=== PATIENT | male | born 1955 | race Caucasian/White ===

== ENCOUNTER → 2016-11-09 | Outpatient (REF) | payer OTHER ==
[~2016-11-09] MED LIST: ALBU83IN INH; FLUT22IN INH; LEVA750T PO; LORA2CON5 PO
[2016-11-09 15:57] LABS: CALCIUM LEVEL 8.5 MG/DL (8.8-10.2); CREATININE FOR GFR 1.45 MG/DL (0.70-1.30); FREE T4 1.14 NG/DL (0.76-1.46); GLOMERULAR FILTRATION RATE 52.7 (>49); POTASSIUM SERUM 4.1 MEQ/L (3.5-5.1)
== END ==
LOC: M SFHCPLAZ 12:45
PROVIDERS: ATTEND Family Medicine
DX: F41.8 Other specified anxiety disorders (principal)

== ENCOUNTER 2016-12-04 19:04 | Inpatient (IN) | payer OTHER ==
[~2016-12-04] VITALS: Ht 177.8 cm; Wt 113.4 kg
[2016-12-04] MEDS ORDERED: HYDR12.55 PO (19:24)
[2016-12-04] MEDS ORDERED: ACETAMINOPHEN 650 MG SUPP PR ONE (19:30)
[2016-12-04] MEDS ORDERED: NS 1,000 ML IV ONE (19:30)
[2016-12-04 19:56] LABS: BASO # 0.1 K/mm3 (0.0-0.2); BASO % 0.6 % (0.0-1.0); EOS % 0.3 % (0.0-3.0); LARGE UNSTAINED CELL # 0.4 K/mm3 (0.0-0.4); LARGE UNSTAINED CELL % 1.9 % (0.0-4.0); LYMPH # 1.9 K/mm3 (1.5-4.5); LYMPH % 9.9 % (24.0-44.0); MEAN CORPUSCULAR HEMOGLOBIN 30.8 pg (27.0-33.0); MEAN CORPUSCULAR HGB CONC 32.6 g/dl (32.0-36.5); MEAN CORPUSCULAR VOLUME 94.5 fl (80.0-96.0); MONO # 1.1 K/mm3 (0.0-0.8); NEUTROPHILS # 15.4 K/mm3 (1.8-7.7); NEUTROPHILS % 81.3 % (36.0-66.0); PLATELET COUNT, AUTOMATED 153 k/mm3 (150-450); RED CELL DISTRIBUTION WIDTH 13.6 % (11.5-14.5)
[2016-12-04 20:03] LABS: ABG BASE EXCESS -6.2 (-2.0-2.0); ABG HCO3 14.9 MEQ/L (22.0-26.0); ABG PARTIAL PRESSURE CO2 22.5 mmHg (35.0-45.0); ABG PARTIAL PRESSURE O2 67.1 mmHg (75.0-100.0); ABG STANDARD HCO3 19.5 MEQ/L (22.0-26.0); ABG TOTAL CO2 15.6 MEQ/L (23.0-31.0); ABG pH (ARTERIAL) 7.438 UNITS (7.350-7.450)
[2016-12-04 20:14] LABS: METHADONE URINE NEGATIVE (NEGATIVE)
[2016-12-04 20:17] LABS: ALBUMIN 3.8 GM/DL (3.2-5.2); ALBUMIN/GLOBULIN RATIO 0.83 (1.00-1.93); ALKALINE PHOSPHATASE 113 U/L (45-117); ALT/SGPT 37 U/L (12-78); ANION GAP 19 MEQ/L (8-16); AST/SGOT 65 U/L (15-37); BILIRUBIN,DIRECT 2.6 MG/DL (0.0-0.2); BILIRUBIN,TOTAL 4.4 MG/DL (0.2-1.0); BLOOD UREA NITROGEN 82 MG/DL (7-18); CALCIUM LEVEL 8.8 MG/DL (8.8-10.2); CARBON DIOXIDE LEVEL 21 MEQ/L (21-32); CHLORIDE LEVEL 109 MEQ/L (98-107); CREATININE FOR GFR 4.99 MG/DL (0.70-1.30); GLOMERULAR FILTRATION RATE 12.7 (>49); GLUCOSE, FASTING 135 MG/DL (80-110); POTASSIUM SERUM 3.8 MEQ/L (3.5-5.1); SODIUM LEVEL 149 MEQ/L (136-145); TOTAL PROTEIN 8.4 GM/DL (6.4-8.2)
[2016-12-04] MEDS ORDERED: CEFEPIME HCL 2 GM in D5W MINI-BAG PLUS 50 ML IV ONE (20:30)
[2016-12-04] MEDS ORDERED: dexameTHASONE 20 MG/5 ML VIAL (J1100) IV ONE (20:30)
[2016-12-04] MEDS ORDERED: NS IV ONE (20:30)
[2016-12-04] MEDS ORDERED: DILUENT IV ONE (20:30)
--- NOTE | 2016-12-04 20:40 | REPUSA ---
CLINICAL HISTORY: Altered mental status TECHNIQUE: Head CT without contrast COMPARISON: No study for comparison is available at the time of interpretation. Brain: There is severe encephalomalacia of the right temporal lobe extending into the medial frontal lobe consistent with old infarction of the right MCA territory. No intracranial hemorrhage, hydroceph alus, acute parenchymal edema or evident mass. Calvarium: Unremarkable. Sinuses (partially visualized): chronic paranasal sinusitis with opacification and chronic sclerosis changes. Intracranial vessels: Atherosclerotic calcification of the carotid siphons. IMPRESSION: 1. 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 No evidence of acute hemorrhage. 2. Chronic paranasal sinusitis.
--- NOTE | 2016-12-04 20:42 | ECGEPIP ---
Stationary ECG Study [facility] - ED Test Date: 2016-12-04 Pat Name: MEGHAN DOSS Department: Room: - Gender: M Treasury Accountant: BazziB: [id number] Requested By: Torsten Cortez Order Number: [id number] Reading MD: Yaritza Denney Measurements Intervals [place] Rate: 116 P: 18 VA: 133 QRS: -12 QRSD: 86 T: 130 QT: 341 QTc: 474 Interpretive Statements SINUS TACHYCARDIA MODERATE VOLTAGE CRITERIA FOR LVH, CONSIDER NORMAL VARIANT ST DEVIATION AND MODERATE T-WAVE ABNORMALITY, CONSIDER ISCHEMIA, MORE PRONOUNCED 01/30/15 ?INFERIOR INFARCT ?AGE Electronically Signed On 12-04-2016 20:41:52 EDT by Yaritza Denney
[2016-12-04 20:55] LABS: INR 1.3
[2016-12-04 20:56] LABS: AMYLASE 64 U/L (25-115)
[2016-12-04] MEDS ORDERED: LORA1TAB12 PO (21:56)
[2016-12-04] MEDS ORDERED: VITA50003 PO (21:56)
[2016-12-04] MEDS ORDERED: PRIM50TA6 PO (21:56)
[2016-12-04] MEDS ORDERED: DULO1CAP PO (21:57)
[2016-12-04] MEDS ORDERED: ARNU1INH INH (21:57)
[2016-12-04] MEDS ORDERED: ASPI81TA7 PO (21:57)
[2016-12-04] MEDS ORDERED: ATOR1TAB19 PO (21:57)
[2016-12-05] VITALS (15 sets, daily range): BP systolic 90–144; BP diastolic 58–88
[2016-12-05] MEDS ORDERED: VANCOMYCIN HCL 1,000 MG, VIAL MATE ADAPTER 1 EACH in D5W 250 ML IV ONE ×3
--- NOTE | 2016-12-05 00:09 | PHACANCOPD ---
PHARMACY VANCOMYCIN DOSING Pt Demographics Demographics Patient Age:61 , Weight: , Gender: male Adjusted Body Weight Date: 12/05/16, Adjusted Body Weight: [84.6] Kg Events Past 24 Hours Events Past 24 Hours: NO: Change in CrCl, Dialysis, Diuretic Therapy, Elevation in WBC, Fever, Other, Pending Diagnostics, Pending Procedures Vancomycin Vancomycin Target Ranges: 15-20 mcg/ml Vancomycin Load Y/N: Yes Load Dose Date Time Vancomycin Load Dose: 1500MG Date: 12-05 Time: 0100 Vancomycin Dose Date: 12/05/16. Current Vancomycin Dose: Intermittent Dosing?: Yes Labs Labs Item Value Date Time White Blood Count 19.0 K/mm3 H 12/04/161928 Creatinine 4.99 MG/DL H 12/04/161928 Blood Urea Nitrogen 82 MG/DL H 12/04/161928 Micro Microbiology 12/04/16 Blood Culture, Received Pending 12/04/16 Blood Culture, Received Pending 12/04/16 Influenza Virus Type A Antigen - Final, Complete 12/04/16 Influenza Virus Type B Antigen - Final, Complete 12/04/16 Urine Culture, Received Pending Creatinine Clearance Date:12/05/16. Creatinine Clearance: [16]. Pending Labs Random level - @1200 Assessment and Plan Maintaining Current Dose?: Yes Reason for dose change: No Dose Change Pharmacist Note Pharmacist Note Date: 12/05/16. Pharmacist note:loaded patient with 1500mg. Further dosing to be done intermittent by levels. First level scheduled for 12-05 @1200. Will continue to monitor and make adjustments as needed. RONNIE KELLER [facility] Dec 05, 2016 00:09
--- NOTE | 2016-12-05 00:24 | HPEPDOC ---
General Date of Admission Dec 04, 2016 at 21:32 Chief Complaint The patient is a 61-year-old male Presented to the ER brought in by EMS because he was found down. History of Present Illness Patient is a 61 year old male with a PMHx of Anxiety, Asthma, HTN, and FREYA who presented to the ER via EMS because he was found down. Patient was last known to be in his normal state around 3 days ago, he was found by his neighbor this afternoon after he had called him about a welfare check. Patient was found sitting up, able to answer commands and unable to move his left side. He had an uneven smile and dried vomit around his mouth and clothes. Patient is unable to provide any details to the event in question. He is able to answer simple questions. Information has been collected from the emergency room physician and medical record. Home Medications Scheduled (Arnuity Ellipta) 100 Mcg/Act Inh 100 MCG INH DAILY (Reported) Aspirin (Aspirin) 81 Mg Tab 81 MG PO DAILY (Reported) Atorvastatin Calcium (Atorvastatin Calcium) 10 Mg Tab 10 MG PO DAILY (Reported ) Duloxetine Hcl (Duloxetine HCl) 20 Mg Cap 20 MG PO BID (Reported) Ergocalciferol (Vitamin D) 50,000 Unit Cap 50,000 UNIT PO ASDIRECTED (Reported ) 1xW Fluticasone Propionate (Flovent Hfa 220 MCG) 120 Puff/12 Gm Aero 2 PUFF INH DAILY (Reported) Hydrochlorothiazide (Hydrochlorothiazide) 12.5 Mg Tab 12.5 MG PO DAILY ( Reported) Lorazepam (Lorazepam) 1 Mg Tab 1 MG PO QID (Reported) Primidone (Primidone) 50 Mg Tab 50 MG PO BID (Reported) Scheduled PRN Albuterol Sulfate (Albuterol Sulfate) 2.5 Mg/3 Ml Nebu 2.5 MG INH Q4HP PRN PRN WHEEZING (Reported) Allergies Coded Allergies: No Known Allergies (Verified , 03/24/03) Past Medical History Medical History Anxiety, Asthma, HTN, and FREYA Surgical History Umbilical hernia repair Growth on back that was removed Family History - Mother is alive with dementia at [facility] - Patient has a brother in [facility] unable to contact them Social History - Denies the use of alcohol, tobacco or illicit drugs base on prior records - Lives alone Review of Symptoms Other systems Unable to obtain Vital Signs - Vitals: BP 137/80, HR 90, RR 96, Sat 96%RA, Temp 97.5F - General: Lying in bed, Able to speak slurred speech - HEENT: NC, AT, Pupils dilated, reactive to light - CVS: Tachycardic, regular rhythm, +S1S2, - Lungs: Poor inspiratory effort, no appreciable crackles / rhonchi - Abdomen: Soft, Non-distended, Non-tender, + Bowel sounds x 4 - Extremities: + PPx4, No lower extremity edema, No calf tenderness - Neuro: 0/5 strength at left upper and lower extremity, 3-4/5 strength at right extremities, left facial droop - Skin: No visible rashes Laboratory Data Labs 24H Laboratory Tests 2 12/04/16 19:08: Bedside Glucose (Misc Panel) 135H 12/04/16 19:29: Acetaminophen Level < 2.0L, Activated Partial Thromboplast Time 30.9, Aspartate Amino Transf (AST/SGOT) 65H, Alanine Aminotransferase (ALT/SGPT) 37, Alkaline Phosphatase 113, Total Bilirubin 4.4H, Direct Bilirubin 2.6H, Albumin 3.8, Albumin/Globulin Ratio 0.83L, Amylase Level 64, Anion Gap 19H, White Blood Count 19.0H, Red Blood Count 6.49H, Hemoglobin 19.8H, Hematocrit 61.7H, Mean Corpuscular Volume 94.5, Mean Corpuscular Hemoglobin 30.8, Mean Corpuscular Hemoglobin Concent 32.6, Red Cell Distribution Width 13.6, Platelet Count 153, Neutrophils (%) (Auto) 81.3H, Lymphocytes (%) (Auto) 9.9L, Monocytes (%) (Auto) 6.0H, Eosinophils (%) (Auto) 0.3, Basophils (%) (Auto) 0.6, Neutrophils # (Auto ) 15.4H, Lymphocytes # (Auto) 1.9, Monocytes # (Auto) 1.1H, Eosinophils # (Auto ) 0.0, Basophils # (Auto) 0.1, C-Reactive Protein, Quantitative 16.90H, Calcium Level 8.8, Creatine Kinase MB 8.1H, Creatine Kinase MB Relative Index 0.27, Ethyl Alcohol Level 0.004, Glomerular Filtration Rate 12.7L, Lactic Acid (Sepsis ) 4.9*H, Large Unclassified Cells # 0.4, Large Unclassified Cells % 1.9, Prothromb Time International Ratio 1.30, Prothrombin Time 16.3H, Salicylates Level < 1.7L, Thyroid Stimulating Hormone (TSH) 1.850, Total Creatine Kinase 2906H, Total Protein 8.4H, Troponin I 0.02, Urine Amorphous Sediment SMALLH, Urine Amphetamines Screen NEGATIVE, Urine Benzodiazepines Screen POSITIVEH, Urine Opiates Screen NEGATIVE, Urine Appearance CLOUDYH, Urine Color FROILAN, Urine pH 5.0, Urine Specific [place] 1.023, Urine Protein 1+H, Urine Glucose (UA ) NEGATIVE, Urine Ketones NEGATIVE, Urine Urobilinogen 4.0H, Urine Bilirubin 1+H , Urine Leukocyte Esterase NEGATIVE, Urine Bacteria (Auto) 1+H, Urine Barbiturates Screen NEGATIVE, Urine Blood NEGATIVE, Urine Calcium Carbonate Cryst(Auto) , Urine Calcium Oxalate Cryst (Auto) , Urine Calcium Phosphate Geraldine (Auto) , Urine Cannabinoids Screen NEGATIVE, Urine Cellular Casts , Urine Cocaine Metabolite Screen NEGATIVE, Urine Cystine Crystals , Urine Granular Casts (Auto) , Urine Hyaline Casts (Auto) 0, Urine Leucine Crystals , Urine Methadone Screen NEGATIVE, Urine Mucus (Auto) SMALL, Urine Nitrite NEGATIVE, Urine Oval Fat Bodies (Auto) , Urine Phencyclidine Screen NEGATIVE, Urine RBC ( Auto) 4H, Urine Renal Epithelial Cells , Urine Sperm (Auto) , Urine Squamous Epithelial Cells 0, Urine Transitional Epithelial Cells , Urine Trichomonas ( Auto) , Urine Triple Phosphate Cryst (Auto) , Urine Tyrosine Crystals , Urine Uric Acid Crystals (Auto) , Urine WBC (Auto) 0, Urine Waxy Casts (Auto) , Urine Yeast-Like Cells (Auto) 12/04/16 19:50: Arterial Blood pH 7.438, Arterial Blood Partial Pressure CO2 22.5L, Arterial Blood Partial Pressure O2 67.1L, Arterial Blood Total CO2 15.6L, Arterial Blood HCO3 14.9L, Arterial Blood Base Excess -6.2L, Arterial Blood Oxygen Saturation 93.6L, Blood Gas Bicarbonate Standard 19.5L 12/04/16 22:25: Urine Random Chloride 10, Urine Random Creatinine 404.0, Urine Random Osmolality 502, Urine Random Sodium 19 12/04/16 23:12: Creatine Kinase MB 10.3H, Creatine Kinase MB Relative Index 0.23, Lactic Acid ( Sepsis) 2.4*H, Osmolality 345H, Total Creatine Kinase 4407H, Troponin I 0.05# CBC/BMP Laboratory Tests 12/04/16 19:29 Red Blood Count 6.49 H, Mean Corpuscular Volume 94.5, Mean Corpuscular Hemoglobin 30.8, Mean Corpuscular Hemoglobin Concent 32.6, Red Cell Distribution Width 13.6, Neutrophils (%) (Auto) 81.3 H, Lymphocytes (%) (Auto) 9.9 L, Monocytes (%) (Auto) 6.0 H, Eosinophils (%) (Auto) 0.3, Basophils (%) ( Auto) 0.6, Neutrophils # (Auto) 15.4 H, Lymphocytes # (Auto) 1.9, Monocytes # ( Auto) 1.1 H, Eosinophils # (Auto) 0.0, Basophils # (Auto) 0.1 Microbiology Microbiology 12/04/16 Blood Culture, Received Pending 12/04/16 Blood Culture, Received Pending 12/04/16 Influenza Virus Type A Antigen - Final, Complete 12/04/16 Influenza Virus Type B Antigen - Final, Complete 12/04/16 Urine Culture, Received Pending Plan / VTE VTE Prophylaxis Ordered?: Yes Plan / Urinary Catheter Reason for insertion/continuin: Critical Pt monitoring Plan Plan Encephalopathy likely 2/2 subacute CVA with midline shift likely 2/2 ischemic etiology - Last found within normal state 3 days ago - Has been found sitting and not moving in chair - CT head: reveals sub-actue infarct with evidence of midline shift ( radiologist has verbalized this to ER physician) - will get MRI / MRA head, ECHO, Duplex US - will c/w Dexamethasone 4mg q6h - Neuro check q1 hours and keep in ICU - Case discussed with Neurology patient has a poor prognosis - Discussed with girlfriend who is trying to get in touch with the patients brother; Patient does not have a or any children; His mother has dementia and lives a [facility] Sepsis likely 2/2 aspiration pneumonia - Physical dose not reveal any significant change in lung sounds - Elevation in WBC and Lactic acid - CXR does not reveal any findings - Will check blood cultures, urinalysis and urine cultures - Will received 30 ml / kg of IV fluid in ER - Will cover with Zosyn and Vancomycin - will c/w IV fluid hydration with NS Acute kidney injury on CKD3 - Cr elevation of 4.99, baseline of 1.4-1.7 - Will check urine electrolytes, urinalysis in urine osmolality - will c/w IV fluid hydration with NS Rhabdomyolysis likely 2/2 immobility - Elevation in CKMB of 2906 - will c/w IV fluid hydration with NS Hemoconcentration likely 2/2 dehydration Transaminitis likely 2/2 rhabdomyolysis - will monitor for now Anxiety Asthma HTN FREYA Gastrointestinal prophylaxis - Will start protonix DVT prophylaxis - Will start SCDs only at this time GERMAN MARTINEZ MD Dec 05, 2016 00:24
[2016-12-05] MEDS: NS 1,000 ML IV SCH ×3 (00:38→18:14)
[2016-12-05] MEDS: PANTOPRAZOLE 40MG INJ (PROTONIX) (C9113) IV SCH ×2 (00:38→20:18)
[2016-12-05] MEDS ORDERED: VANCOMYCIN HCL 500 MG in D5W MINI-BAG PLUS 100 ML IV ONE (01:00)
[2016-12-05] MEDS: dexameTHASONE 20 MG/5 ML VIAL (J1100) IV SCH ×3 (02:04→13:51)
[2016-12-05 02:34] LABS: OSMOLALITY URINE 575 MOSM/KG (500-800)
[2016-12-05] MEDS ORDERED: MANNITOL 25% 12.5 GM/50 ML VIAL (J2150) IV ONE (03:00)
[2016-12-05] MEDS ORDERED: MANNITOL 20% BAG 125 ML IV ONE (03:45)
[2016-12-05] MEDS: PIPERACILLIN/TAZOBACTAM SOD 3.375 GM in D5W MINI-BAG PLUS 50 ML IV SCH ×3 (04:44→19:09)
--- NOTE | 2016-12-05 05:10 | REPUSA ---
CLINICAL HISTORY: Evaluate for bleed. TECHNIQUE: Multiple axial CT images were obtained through the brain without IV contrast material. COMMENTS: Comparison is made to the prior exam performed on 12/04/2016. Unchanged subacute ischemia in the territory of the right middle cerebral artery. Unchanged associated edema. Unchanged mass effect on the right lateral ventricle. Unchanged midline shift to the left side. There is normal configuration of sella turcica. There are no intra or extra-axial collections. There is no evidence of hematoma formation. No hydrocephalus is present. The ventricles are symmetrical. No abnormal calcifications are present. IMPRESSION: No change is seen. Thank you for your kind referral of this patient.
[2016-12-05 06:27] LABS: BASO % 0.1 % (0.0-1.0); EOS # 0.1 K/mm3 (0.0-0.50); EOS % 0.5 % (0.0-3.0); LARGE UNSTAINED CELL # 0.2 K/mm3 (0.0-0.4); LARGE UNSTAINED CELL % 0.9 % (0.0-4.0); LYMPH # 0.9 K/mm3 (1.5-4.5); LYMPH % 5.4 % (24.0-44.0); MEAN CORPUSCULAR HEMOGLOBIN 30.3 pg (27.0-33.0); MEAN CORPUSCULAR HGB CONC 32.8 g/dl (32.0-36.5); MEAN CORPUSCULAR VOLUME 92.4 fl (80.0-96.0); MONO # 0.5 K/mm3 (0.0-0.8); MONO % 3.2 % (0.0-5.0); NEUTROPHILS # 15.2 K/mm3 (1.8-7.7); NEUTROPHILS % 89.9 % (36.0-66.0); RED CELL DISTRIBUTION WIDTH 13.5 % (11.5-14.5); WHITE BLOOD COUNT 16.9 K/mm3 (4.0-10.0)
[2016-12-05 06:41] LABS: ALBUMIN 2.6 GM/DL (3.2-5.2); ALBUMIN/GLOBULIN RATIO 0.67 (1.00-1.93); BILIRUBIN,TOTAL 3.4 MG/DL (0.2-1.0); CALCIUM LEVEL 7.8 MG/DL (8.8-10.2); CREATININE FOR GFR 3.77 MG/DL (0.70-1.30); GLOMERULAR FILTRATION RATE 17.5 (>49); POTASSIUM SERUM 4.1 MEQ/L (3.5-5.1); TOTAL PROTEIN 6.5 GM/DL (6.4-8.2)
[2016-12-05 07:17] LABS: PLATELET COUNT, AUTOMATED 78 k/mm3 (150-450)
--- NOTE | 2016-12-05 07:53 | REP ---
Clinical: Altered mental status . Comparison: 01/30/2015 . Findings: The mediastinum and cardiac silhouette are stable and within normal limits for portable technique. The lung ochoa are stable and without acute consolidation, effusion, or pneumothorax. Skeletal structures are intact. Impression: Normal portable chest x-ray Signed by Edin Floyd MD 12/05/2016 07:44 A
--- NOTE | 2016-12-05 09:00 | IPNPDOC ---
Subjective Date Seen The patient was seen on 12/05/16. Subjective Chief Complaint/HPI The patient is a 61-year-old male admitted with a reason for visit of Acute Renal Failure, Cva, Sepsis, Rhabdomyolysis. Events since last encounter Pt dysarthric. Does not recall immediate pre-hospital condition. Weak left side. Denies pain, CP, SOB. Constitutional: Denies: Chills, Fever Pulmonary: Denies: Dyspnea Cardiovascular: Denies: Chest Pain Gastrointestinal: Denies: Abdominal Pain, Nausea, Vomiting Neurological: Reports: Change in speech, Weakness Objective Physical Examination General Exam: Positive: Alert, No Acute Distress ENT Exam: Positive: Atraumatic Neck Exam: Positive: Supple, Negative: JVD Chest Exam: Positive: Clear to auscultation, Normal air movement Heart Exam: Positive: Rate Normal, Regular Rhythm Abdomen Exam: Positive: Normal bowel sounds, Soft, Negative: Tenderness Extremity Exam: Positive: Edema (L>R) Neuro Exam: Negative: Normal Speech (Dysarthric speech), Strength at 5/5 X4 ext (weak L>R) Assessment /Plan Problems (1) CVA (cerebral vascular accident) Status: Acute Problem Specific Plan: Consult Specialist, Monitor Clinically, Repeat Labs Problem Text: 12/05 - Neuro and neurosurgery were consulted at admission. Started on Decadron. Head CT (12/04): "Severe encephalomalacia of the right temporal lobe extending into the medial frontal lobe consistent with old infarction of the right MCA territory. No intracranial hemorrhage, hydrocephalus, acute parenchymal edema or evident mass. 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 No evidence of acute hemorrhage. Chronic paranasal sinusitis." Head CT (12/05): "Unchanged subacute ischemia in the territory of the right middle cerebral artery. Unchanged associated edema. Unchanged mass effect on the right lateral ventricle. Unchanged midline shift to the left side. There is normal configuration of sella turcica. There are no intra or extra-axial collections. There is no evidence of hematoma formation. No hydrocephalus is present. The ventricles are symmetrical. No abnormal calcifications are present. " (2) Sepsis Status: Acute Problem Specific Plan: Monitor Clinically, Repeat Labs Problem Text: 12/05 - WBC 16.9 (19 at admission). On Zosyn. (3) Rhabdomyolysis Status: Acute Problem Specific Plan: Monitor Clinically, Repeat Labs Problem Text: 12/05 - CK 3881 - 6029 - 0196. Getting IVF. (4) Acute renal failure Status: Acute Problem Specific Plan: Monitor Clinically, Repeat Labs Problem Text: 12/05 - Creatinine 3.77 (4.99 yesterday). Getting IVF. (5) Asthma Status: Chronic Problem Specific Plan: Monitor Clinically Problem Text: PRN nebs. (6) HTN (hypertension) Status: Chronic Problem Specific Plan: Monitor Clinically Problem Text: OutPt HCTZ held. (7) Anxiety Status: Chronic Problem Specific Plan: Monitor Clinically Problem Text: Outpt Duloxetine and lorazepam currently held. Plan/VTE VTE Prophylaxis Ordered?: Yes Plan/Urinary Catheter Reason for insertion/continuin: Critical Pt monitoring VS, I&O, 24H, Fishbone Vital Signs/I&O Vital Signs Date Time Temp Pulse Resp B/P Pulse Ox O2 Delivery O2 Flow Rate FiO2 12/05/16 08:00 99.0 83 22 113/76 92 Room Air I&O- Last 24 Hours up to 6 AM 12/05/16 06:00 Intake Total 2755 ml Output Total 730 ml Balance 2025 ml Laboratory Data 24H LABS Laboratory Tests 2 12/04/16 19:08: Bedside Glucose (Misc Panel) 135H 12/04/16 19:29: Acetaminophen Level < 2.0L, Activated Partial Thromboplast Time 30.9, Aspartate Amino Transf (AST/SGOT) 65H, Alanine Aminotransferase (ALT/SGPT) 37, Alkaline Phosphatase 113, Total Bilirubin 4.4H, Direct Bilirubin 2.6H, Albumin 3.8, Albumin/Globulin Ratio 0.83L, Amylase Level 64, Anion Gap 19H, White Blood Count 19.0H, Red Blood Count 6.49H, Hemoglobin 19.8H, Hematocrit 61.7H, Mean Corpuscular Volume 94.5, Mean Corpuscular Hemoglobin 30.8, Mean Corpuscular Hemoglobin Concent 32.6, Red Cell Distribution Width 13.6, Platelet Count 153, Neutrophils (%) (Auto) 81.3H, Lymphocytes (%) (Auto) 9.9L, Monocytes (%) (Auto) 6.0H, Eosinophils (%) (Auto) 0.3, Basophils (%) (Auto) 0.6, Neutrophils # (Auto ) 15.4H, Lymphocytes # (Auto) 1.9, Monocytes # (Auto) 1.1H, Eosinophils # (Auto ) 0.0, Basophils # (Auto) 0.1, C-Reactive Protein, Quantitative 16.90H, Calcium Level 8.8, Creatine Kinase MB 8.1H, Creatine Kinase MB Relative Index 0.27, Ethyl Alcohol Level 0.004, Glomerular Filtration Rate 12.7L, Lactic Acid (Sepsis ) 4.9*H, Large Unclassified Cells # 0.4, Large Unclassified Cells % 1.9, Prothromb Time International Ratio 1.30, Prothrombin Time 16.3H, Salicylates Level < 1.7L, Thyroid Stimulating Hormone (TSH) 1.850, Total Creatine Kinase 2906H, Total Protein 8.4H, Troponin I 0.02, Urine Amorphous Sediment SMALLH, Urine Amphetamines Screen NEGATIVE, Urine Benzodiazepines Screen POSITIVEH, Urine Opiates Screen NEGATIVE, Urine Appearance CLOUDYH, Urine Color FROILAN, Urine pH 5.0, Urine Specific [place] 1.023, Urine Protein 1+H, Urine Glucose (UA ) NEGATIVE, Urine Ketones NEGATIVE, Urine Urobilinogen 4.0H, Urine Bilirubin 1+H , Urine Leukocyte Esterase NEGATIVE, Urine Bacteria (Auto) 1+H, Urine Barbiturates Screen NEGATIVE, Urine Blood NEGATIVE, Urine Calcium Carbonate Cryst(Auto) , Urine Calcium Oxalate Cryst (Auto) , Urine Calcium Phosphate Geraldine (Auto) , Urine Cannabinoids Screen NEGATIVE, Urine Cellular Casts , Urine Cocaine Metabolite Screen NEGATIVE, Urine Cystine Crystals , Urine Granular Casts (Auto) , Urine Hyaline Casts (Auto) 0, Urine Leucine Crystals , Urine Methadone Screen NEGATIVE, Urine Mucus (Auto) SMALL, Urine Nitrite NEGATIVE, Urine Oval Fat Bodies (Auto) , Urine Phencyclidine Screen NEGATIVE, Urine RBC ( Auto) 4H, Urine Renal Epithelial Cells , Urine Sperm (Auto) , Urine Squamous Epithelial Cells 0, Urine Transitional Epithelial Cells , Urine Trichomonas ( Auto) , Urine Triple Phosphate Cryst (Auto) , Urine Tyrosine Crystals , Urine Uric Acid Crystals (Auto) , Urine WBC (Auto) 0, Urine Waxy Casts (Auto) , Urine Yeast-Like Cells (Auto) 12/04/16 19:50: Arterial Blood pH 7.438, Arterial Blood Partial Pressure CO2 22.5L, Arterial Blood Partial Pressure O2 67.1L, Arterial Blood Total CO2 15.6L, Arterial Blood HCO3 14.9L, Arterial Blood Base Excess -6.2L, Arterial Blood Oxygen Saturation 93.6L, Blood Gas Bicarbonate Standard 19.5L 12/04/16 22:25: Urine Random Chloride 10, Urine Random Creatinine 404.0, Urine Random Osmolality 502, Urine Random Sodium 19 12/04/16 23:12: Creatine Kinase MB 10.3H, Creatine Kinase MB Relative Index 0.23, Lactic Acid ( Sepsis) 2.4*H, Osmolality 345H, Total Creatine Kinase 4407H, Troponin I 0.05# 12/05/16 02:06: Urine Myoglobin POSITIVE, Urine Random Creatinine 148.0, Urine Random Osmolality 575, Urine Random Sodium 31 12/05/16 06:07: Creatine Kinase MB 8.4H, Creatine Kinase MB Relative Index 0.21, Lactic Acid ( Sepsis) 1.8, Total Creatine Kinase 3881H, Troponin I 0.14#H, Blood Urea Nitrogen 84H, Creatinine 3.77H, Sodium Level 148H, Potassium Level 4.1, Chloride Level 117H, Carbon Dioxide Level 20L, Calcium Level 7.8L, Aspartate Amino Transf (AST/SGOT) 89H, Alanine Aminotransferase (ALT/SGPT) 39, Alkaline Phosphatase 82, Total Bilirubin 3.4H, Total Protein 6.5#, Albumin 2.6#L, Albumin /Globulin Ratio 0.67L, Anion Gap 11, White Blood Count 16.9H, Red Blood Count 5.29, Hemoglobin 16.0#, Hematocrit 48.9, Mean Corpuscular Volume 92.4, Mean Corpuscular Hemoglobin 30.3, Mean Corpuscular Hemoglobin Concent 32.8, Red Cell Distribution Width 13.5, Platelet Count 78L, Neutrophils (%) (Auto) 89.9H, Lymphocytes (%) (Auto) 5.4L, Monocytes (%) (Auto) 3.2, Eosinophils (%) (Auto) 0.5, Basophils (%) (Auto) 0.1, Neutrophils # (Auto) 15.2H, Lymphocytes # (Auto) 0.9L, Monocytes # (Auto) 0.5, Eosinophils # (Auto) 0.1, Basophils # (Auto) 0.0, Glomerular Filtration Rate 17.5L, Large Unclassified Cells # 0.2, Large Unclassified Cells % 0.9, Magnesium Level 3.0H CBC/BMP Laboratory Tests 12/04/16 19:29 Red Blood Count 6.49 H, Mean Corpuscular Volume 94.5, Mean Corpuscular Hemoglobin 30.8, Mean Corpuscular Hemoglobin Concent 32.6, Red Cell Distribution Width 13.6, Neutrophils (%) (Auto) 81.3 H, Lymphocytes (%) (Auto) 9.9 L, Monocytes (%) (Auto) 6.0 H, Eosinophils (%) (Auto) 0.3, Basophils (%) ( Auto) 0.6, Neutrophils # (Auto) 15.4 H, Lymphocytes # (Auto) 1.9, Monocytes # ( Auto) 1.1 H, Eosinophils # (Auto) 0.0, Basophils # (Auto) 0.1 12/05/16 06:07 Red Blood Count 5.29, Mean Corpuscular Volume 92.4, Mean Corpuscular Hemoglobin 30.3, Mean Corpuscular Hemoglobin Concent 32.8, Red Cell Distribution Width 13.5 , Neutrophils (%) (Auto) 89.9 H, Lymphocytes (%) (Auto) 5.4 L, Monocytes (%) ( Auto) 3.2, Eosinophils (%) (Auto) 0.5, Basophils (%) (Auto) 0.1, Neutrophils # ( Auto) 15.2 H, Lymphocytes # (Auto) 0.9 L, Monocytes # (Auto) 0.5, Eosinophils # (Auto) 0.1, Basophils # (Auto) 0.0, Calcium Level 7.8 L, Aspartate Amino Transf (AST/SGOT) 89 H, Alanine Aminotransferase (ALT/SGPT) 39, Total Creatine Kinase 3881 H, Alkaline Phosphatase 82, Total Bilirubin 3.4 H, Total Protein 6.5 #, Albumin 2.6 #L Microbiology Microbiology 12/04/16 Blood Culture, Received Pending 12/04/16 Blood Culture, Received Pending 12/04/16 Influenza Virus Type A Antigen - Final, Complete 12/04/16 Influenza Virus Type B Antigen - Final, Complete 12/04/16 Urine Culture, Received Pending Oumar Nye Dec 05, 2016 09:00
[2016-12-05] MEDS ORDERED: SLF 3 ML SYR IV PRN (12:15)
[2016-12-05] MEDS ORDERED: VANCOMYCIN INTERMITTENT/PULSE DOSING BY CLINICAL PHARMACIST PER DOSING PROTOCOL XX SCH (13:30)
[2016-12-05] MEDS: SLF 3 ML SYR IV SCH ×2 (13:51→20:19)
--- NOTE | 2016-12-05 15:47 | REP ---
LEFT LOWER EXTREMITY DUPLEX DOPPLER VENOUS ULTRASOUND: Real-time compression and duplex Doppler interrogation of the left lower extremity deep venous system is performed. The left common femoral, superficial femoral and popliteal veins are not compressible and filled with intraluminal thrombus consistent with extensive deep vein thrombosis. Note is also made of thrombus in the right common femoral vein. IMPRESSION: Extensive deep vein thrombosis of left common femoral, superficial femoral and popliteal veins. Note is also made of deep vein thrombosis of the right common femoral vein. Signed by Anand Mason MD 12/05/2016 04:16 P
--- NOTE | 2016-12-05 15:55 | REP ---
CAROTID ULTRASOUND: Real-time ultrasound evaluation and duplex Doppler interrogation of the extracranial carotid vasculature is performed. There is mild plaquing and narrowing in both carotid bulbs extending into the internal and external carotid arteries. Luminal narrowing is less than 50%. There is no evidence of hemodynamically significant stenosis of either internal carotid artery. Normal flow velocities are seen. The vertebral arteries demonstrate normal direction of flow. RIGHT LEFT Peak systolic velocity ICA 21.2 cm/s 42.3 cm/s End diastolic velocity ICA 6.6 cm/s 20.4 cm/s Peak systolic velocity CCA 59.1 cm/s 80 cm/s Peak systolic velocity ECA 60.9 cm/s 47.4 cm/s ICA/CCA ratio 0.28 0.53 IMPRESSION: Bilateral luminal narrowing of the internal carotid arteries less than 50%. No evidence of hemodynamically significant stenosis. Signed by Anand Mason MD 12/05/2016 03:46 P
--- NOTE | 2016-12-05 16:22 | REP ---
MRA BRAIN WITHOUT CONTRAST: HISTORY: Infarction. 3D [id number] MR angiography was performed at the level of the [place]. There is no aneurysm or arteriovenous malformation. There is loss of the normal hyperintense signal in the right middle cerebral artery at its origin and its branches consistent with occlusion. The remaining major intracranial vessels are patent. The vertebral artery is dominant. IMPRESSION: There is occlusion of the right middle cerebral artery at its origin. Signed by Toni Jackson MD 12/05/2016 04:26 P
--- NOTE | 2016-12-05 16:35 | REP ---
MR BRAIN WITHOUT CONTRAST: HISTORY: Infarction. COMPARISON: CT 12/04/2016. A large area of increased signal intensity on diffusion and T2 weighted images is present in the right temporal and parietal lobes and posterior right frontal lobe. This is decreased in signal intensity on ADC images and is consistent with an acute infarction. A small hemorrhagic component is present. There is mass effect with partial effacement of the overlying cortical sulci and body of the right lateral and third ventricles with minimal midline shift to the left. Scattered punctate areas of increased signal intensity on T2 weighted images are present in the periventricular and subcortical white matter. This represents small vessel ischemic disease. The ventricular system and cortical sulci are dilated consistent with mild volume loss. There is no extra cerebral collection. There is loss of the signal void in the VA segment of the right middle cerebral artery consistent with slow flow or occlusion . Mucosal thickening is present in the ethmoid, maxillary and sphenoid sinuses. IMPRESSION: 1. There is an acute infarction in the distribution of the right middle cerebral artery. A small hemorrhagic component is present. There is minimal midline shift to the left. 2. Minimal small vessel ischemic disease. 3. Mild volume loss. Signed by Toni Jackson MD 12/05/2016 04:37 P
[2016-12-05] MEDS: LORazepam 1 MG TAB PO SCH ×2 (18:14→23:37)
[2016-12-05] MEDS ORDERED: ASPIRIN 300 MG SUPP PR ONE (19:00)
--- NOTE | 2016-12-05 19:04 | REP ---
Clinical: Follow up subacute infarction. Comparison: 12/05/2016, 12/04/2016. Findings: Large area of low density change involving the right frontoparietal and temporal region consistent with right middle cerebral artery infarction is essentially unchanged from prior examination. There is mild to moderate mass effect on the anterior horn of the right lateral ventricle similar to prior examination as well as minimal contralateral midline shift. No no new acute intracranial hemorrhage, extra-axial collection, or mass/mass effect is otherwise noted. Calvarium is intact. There is partial opacification to the ethmoid and sphenoid sinuses. Impression: Large subacute right middle cerebral artery infarction essentially unchanged from prior examination. No evidence for intracranial hemorrhage or extra-axial collection. Signed by Edin Floyd MD 12/05/2016 06:56 P
--- NOTE | 2016-12-05 19:40 | ECHO ---
DATE OF PROCEDURE: 12/05/2016 REFERRING PHYSICIAN: Dr. Lance INDICATION: Cerebrovascular accident. HEIGHT: 178 cm WEIGHT: 103 kg DIMENSIONS: IVS: 1.4 LV 3.9 LVPW: 1.4 LA: 3.1. Aorta: 3.8 FINDINGS: The study is of rather limited technical quality corresponding to patient's body habitus. Left ventricle is normal size and overall preserved or maybe even hyperdynamic contractility. Ejection fraction is around 65 to 75%. Mild left ventricular hypertrophy (LVH) is noted. Right ventricle was poorly seen and grossly appears normal. Left atrium is at least mildly enlarged, right atrium was poorly seen. Aortic valve is mildly sclerotic but has normal mobility. There are mild degenerative abnormalities of the mitral valve, Tricuspid valve appears normal. Pulmonic valve was not well seen. Pericardial fat pad is noted. Inferior vena cava is dilated but collapses with respiration indicative likely of elevated central venous pressure. Aortic root is borderline dilated at 3.8 cm. Aortic arch and abdominal aorta were not seen. Doppler interrogation reveals no aortic or mitral valve disease. There is trace tricuspid insufficiency, but quality of TR jet was not sufficient to adequately estimate pulmonary artery pressure. Pulmonic valve was not well seen and consequently, Doppler evaluation is inconclusive. Mitral inflow pattern and tissue Doppler imaging of mitral annulus reveal grade 1 diastolic dysfunction. E-prime velocities are 4.5 cm/sec septal and 5.9 cm/sec lateral. CONCLUSIONS: 1. Study is of difficult technical quality. 2. Normal left ventricle (LV) size with mild LVH and preserved LV systolic function. 3. No hemodynamically significant valvular disease. 4. Slightly elevated central venous pressure. 5. Unable to estimate pulmonary artery pressure. COMMENT: Subacute bacterial endocarditis (SBE) prophylaxis is not recommended. MTDD
[2016-12-05] MEDS: PRIMIDONE 50 MG TAB PO SCH (20:18)
[2016-12-05] MEDS: NYSTATIN 100,000 UNITS/GM TOPICAL PWD 15 GM TOP SCH (20:18)
[2016-12-05] MEDS ORDERED: APIXABAN 5 MG TAB (ELIQUIS) PO SCH (21:00)
--- NOTE | 2016-12-05 22:12 | CR ---
DATE OF CONSULTATION: 12/05/2016 REASON FOR CONSULTATION: Acute stroke. HISTORY OF PRESENT ILLNESS: Lee Kirkpatrick is a 61-year-old male with past medical history significant for tremor of the right upper extremity, anxiety, asthma, hypertension, obstructive sleep apnea who was found after 3 days by a friend to be poorly responsive, sitting up in his own dried vomitus with inability to move the left side of his body. When brought to [facility] the patient was brought to have a large right MCA occlusion and right MCA stroke. The patient was in acute kidney injury, had aspiration pneumonia and is currently in the ICU. Evaluation of the lower extremities with Dopplers revealed extensive left lower extremity deep venous thrombosis (DVT) with right femoral DVT as well. The patient did have initial report on MRI suggesting possible hemorrhage within the right MCA stroke. CT scan following that up did not comment about hemorrhage. The was to be started on Eliquis 10 mg twice a day for the DVTs. The patient is at very high risk for hemorrhagic transformation of such a large MCA territorial stroke with occlusion of the origin of the MCA artery. As a result, head CT is ordered for tonight and tomorrow morning to further assess for any hemorrhagic conversion. The patient will be requested to have an IVC filter placed after discussing the case with primary team, Dr. Shea Oakes. If in a few days the head CTs do not reveal any subsequent hemorrhagic transformation, we can consider initiation of anticoagulation, which would cause potential high risk for hemorrhage. The patient at this time is hemodynamically stable without any symptoms to suggest pulmonary embolism. Hypercoagulable workup and vasculitic workup is necessary to evaluate for cause of bilateral DVTs. It is possible the patient has a patent foramen ovale (PFO), which may have created a paradoxical stroke. Would recommend transesophageal echocardiogram or at least transthoracic echocardiogram with bubble study. The patient is verbal and able to communicate. He does state that he purchases prescriptions on line include lithium which is not prescribed to him, which he had taken a month ago. The patient also states he takes 2 mg of Ativan five times a day, which is more than what is actually prescribed to him. After confirming with the pharmacy the patient is supposed to be taking 1.5 mg four times a day, but purchases his medications elsewhere and self medicates at higher dosages. While in the hospital, his Ativan was restarted to prevent any potential withdrawal seizure. He takes Primidone 50 mg twice a day as well for the treatment of an underlying tremor, which is also restarted to ovoid any potential rebound seizure. The patient was given rectal aspirin 3 mg in the ICU today. He was taking 81 mg of aspirin up until 3 weeks ago and then stopped on his own. When asked how come the patient self medicates without the direction of any medical provider, he states that he is knowledgeable person and chooses to do so. The patient will need counseling to avoid the such behaviors in the future. The patient is noted to have dense left-sided hemiplegia with inability to cross his eyes past midline towards the left. His tongue is deviating towards the left. He has flattening of the nasolabial fold on the left face. He withdraws to noxious stimuli minimally in the left lower extremity and lateral in the left upper extremity. The patient reflexes are increased on the left side compared to the right. He has a coarse resting tremor and haustral and intention tremor of the right upper extremity. Speech is dysarthric though intelligible. He is able to repeat and does not demonstrate symptoms of aphasia. REVIEW OF SYSTEMS: Negative except as per HPI. ALLERGIES: None. HOME MEDICATIONS: Include: - Arnuity Ellipta 100 mcg/ACT daily - aspirin 81 mg daily up to 3 weeks ago - atorvastatin 10 mg daily - Fluoxetine 20 mg twice a day - ergocalciferol vitamin D 50,000 international units by mouth as directed once a week - hydrochlorothiazide 12.5 mg by mouth daily - lorazepam 1.5 mg by mouth four times a day - Primidone 50 mg by mouth by mouth twice a day PAST MEDICAL HISTORY: Anxiety. Asthma. Hypertension. Obstructive sleep apnea. PAST SURGICAL HISTORY: Umbilical hernia repair. FAMILY HISTORY: Noncontributory. SOCIAL HISTORY: The patient denies use of alcohol, tobacco or illicit drugs. The patient lives alone. PHYSICAL EXAMINATION: Blood pressure is 137/72, pulse rate 81, respiratory rate is 24, temperature 97.4 degrees Fahrenheit. Current height 5 foot 10 inches, current weight is 105 kg. Oxygenation 96% on nasal cannula. The patient is oriented to his name, location and time. He can follow commands. Pupils are 3.5 mm round, reactive to light. The patient can look towards the left with minimal upward and downward gaze. However, the patient cannot cross midline towards the left. Flattening of the left nasolabial fold is present. The patient can raise his eyebrows well. Sensation in V1, V2, and V3 is intact to light touch with slight decrement on the left face. Tongue is deviated towards the left. Hearing subjectively equal to finger rub bilaterally. The patient has dense hemiplegia and hemisensory loss of the left upper and lower extremity. He minimally moves his right toes but can move his right lower extremity minimally. He can move his right upper extremity well and demonstrates a coarse tremor. Sensory of the right face, arm and leg is intact. Deep tendon reflexes are slightly increased in the left side compared to the right. Babinski signs are mute bilaterally. Coordination shows a coarse tremor with [id number] in right hand. ASSESSMENT: 61-year-old male found to have a right MCA origin occlusion resulting in a large territorial MCA acute ischemic stroke with mention of mild hemorrhagic component based on MRI imaging. The patient also has bilateral left worse than right lower extremity DVTs. PLAN: 1. The initial thought was to start the patient on anticoagulation, which in the setting of a large MCA stroke poses a risk of hemorrhagic conversion which has a very poor prognosis. At the present time, the patient is hemodynamically stable and does not have a pulmonary embolism (PE). After discussing the case with Shea Oakes a decision was made to pursue IVC filter placement. Repeat head CT has been ordered for tonight and tomorrow morning. Will followup head CTs daily to assess for any hemorrhagic conversion. If in the next 3 days there is no hemorrhagic conversion, anticoagulation can be considered when weighing risks and benefits and discussing with the patient. If PE develops then anticoagulation will be necessary and the risk for hemorrhagic conversion will have to be seen at that time. 2. Continue with systolic blood pressure within the normal range. Continue ICU monitoring. 3. Please complete hypercoagulable end-diastolic workup. 4. Continue telemetry monitoring. 5. Obtain transthoracic echocardiogram with bubble study or if possible transesophageal echocardiogram with bubble study and evaluation for patent foramen ovale (PFO). 6. If an IVC filter is placed, this will least help to prevent a pulmonary embolism and give more time to assess for any hemorrhagic conversion before initiating anticoagulation.
[2016-12-06] VITALS (14 sets, daily range): BP systolic 107–153; BP diastolic 61–91
[2016-12-06] MEDS: PIPERACILLIN/TAZOBACTAM SOD 3.375 GM in D5W MINI-BAG PLUS 50 ML IV SCH ×3 (04:46→19:46)
[2016-12-06] MEDS: NS 1,000 ML IV SCH ×2 (05:00→17:32)
[2016-12-06] MEDS: LORazepam 1 MG TAB PO SCH ×4 (05:00→23:53)
[2016-12-06] MEDS: SLF 3 ML SYR IV SCH ×3 (05:01→21:32)
[2016-12-06 05:11] LABS: EOS # 0.1 K/mm3 (0.0-0.50); EOS % 0.4 % (0.0-3.0); LARGE UNSTAINED CELL # 0.2 K/mm3 (0.0-0.4); LARGE UNSTAINED CELL % 1.1 % (0.0-4.0); LYMPH # 1.8 K/mm3 (1.5-4.5); LYMPH % 8.7 % (24.0-44.0); MEAN CORPUSCULAR HEMOGLOBIN 31.3 pg (27.0-33.0); MEAN CORPUSCULAR VOLUME 94.9 fl (80.0-96.0); MONO # 0.9 K/mm3 (0.0-0.8); MONO % 4.8 % (0.0-5.0); NEUTROPHILS # 15.7 K/mm3 (1.8-7.7); NEUTROPHILS % 84.9 % (36.0-66.0); RED CELL DISTRIBUTION WIDTH 13.5 % (11.5-14.5); WHITE BLOOD COUNT 18.5 K/mm3 (4.0-10.0)
[2016-12-06 05:12] LABS: PLATELET COUNT, AUTOMATED 86 k/mm3 (150-450)
[2016-12-06 05:35] LABS: ALBUMIN 2.6 GM/DL (3.2-5.2); ALBUMIN/GLOBULIN RATIO 0.7 (1.00-1.93); CALCIUM LEVEL 7.7 MG/DL (8.8-10.2); CREATININE FOR GFR 3.12 MG/DL (0.70-1.30); GLOMERULAR FILTRATION RATE 21.8 (>49); MAGNESIUM LEVEL 3.2 MG/DL (1.8-2.4); TOTAL PROTEIN 6.3 GM/DL (6.4-8.2)
--- NOTE | 2016-12-06 09:22 | REP ---
CT HEAD WITHOUT CONTRAST: HISTORY: Infarction. COMPARISON: 12/05/2016. Decreased attenuation is present in the right temporal and parietal and posterior right frontal lobes. There is mass effect with effacement of the overlying cortical sulci and partial effacement of the body of the right lateral and third ventricles with minimal midline shift to the left. This is unchanged compared to the previous study. There is no intraparenchymal hemorrhage or mass. The ventricular system and cortical sulci are dilated consistent with mild volume loss. There is no extracerebral collection. Mucosal thickening is present in the ethmoid, maxillary and sphenoid sinuses. IMPRESSION: Acute right middle cerebral artery territory infarction with mass effect and minimal midline shift to the left, unchanged compared to the previous study. Signed by Toni Jackson MD 12/06/2016 09:35 A
[2016-12-06] MEDS: NYSTATIN 100,000 UNITS/GM TOPICAL PWD 15 GM TOP SCH ×2 (09:39→21:31)
[2016-12-06] MEDS: PRIMIDONE 50 MG TAB PO SCH ×2 (09:39→21:31)
[2016-12-06] MEDS: ASPIRIN 300 MG SUPP PR SCH (09:39)
[2016-12-06 09:56] LABS: ERYTHROCYTE SEDIMENTATION RATE 7 mm/hr (0-20)
--- NOTE | 2016-12-06 13:20 | IPNPDOC ---
Subjective Date Seen The patient was seen on 12/06/16. Subjective Chief Complaint/HPI The patient is a 61-year-old male admitted with a reason for visit of Acute Renal Failure, Cva, Sepsis, Rhabdomyolysis. Events since last encounter Patient scheduled go for IVC filter today. He also has EEG today. Patient states that he is feeling reasonably well. He is afraid that he caused a stroke through his use of benzodiazepines. He denies significant leg pain, difficulty breathing, chest pain, or chest pressure. Constitutional: Denies: Chills, Fever, Malaise ENT: Denies: Head Aches Skin: Denies: Rash Pulmonary: Denies: Cough, Dyspnea, Pleuritic Chest Pain Cardiovascular: Denies: Chest Pain, Palpitations Gastrointestinal: Denies: Abdominal Pain, Nausea, Vomiting Genitourinary: Denies: Dysuria Neurological: Reports: Change in speech, Confusion (mild), Incoordination, Numbness, Weakness, Denies: Seizures Psych: Reports: Mood Normal Other systems 10 point review systems otherwise negative Objective Physical Examination General Exam: Positive: Alert, No Acute Distress ENT Exam: Positive: Atraumatic Neck Exam: Positive: Supple, Negative: JVD Chest Exam: Positive: Clear to auscultation, Normal air movement Heart Exam: Positive: Rate Normal, Regular Rhythm Abdomen Exam: Positive: Normal bowel sounds, Soft, Negative: Tenderness Extremity Exam: Positive: Edema (L>R) Neuro Exam: Negative: Cranial Nerves 3-12 NL (tongue deviates left, right facial droop, gaze palsy, pupils dilated 4 mm), Normal Speech (Dysarthric speech ), Strength at 5/5 X4 ext (paralysis of left arm and leg; right facial droop) Assessment /Plan Problems (1) CVA (cerebral vascular accident) Status: Acute Problem Specific Plan: Consult Specialist, Monitor Clinically, Repeat Labs Problem Text: Severe right MCA stroke at its origin. Neuro and neurosurgery were consulted at admission. Awaiting day 3 status post stroke to initiate Eliquis, to await confirmation that stroke does not become hemorrhagic. EEG done 12/06/2016. Follow-up CT 12/06/2016 shows no hemorrhagic conversion as of yet. IVC filter placed 12/06/[address] Solorio. Echo shows no significant valvular disease, slightly elevated central venous pressure, normal LV size and systolic function. - Follow-up EEG results - ALON with bubble; per neuro - hypercoag workup pending - repeat CT w/o to eval for hemorrhagic conversion 12/07/16, 12/08/2016, 2016 per neuro - these are been ordered -Pureed Diet with pudding thick (2) Sepsis Status: Acute Problem Specific Plan: Monitor Clinically, Repeat Labs Problem Text: 12/05 - WBC 16.9 (19 at admission). On Zosyn. (3) Rhabdomyolysis Status: Acute Problem Specific Plan: Monitor Clinically, Repeat Labs Problem Text: 12/05 - CK 3881 - 4407 - 2906. Getting IVF. (4) Acute renal failure Status: Acute Problem Specific Plan: Monitor Clinically, Repeat Labs Problem Text: 12/05 - Creatinine 3.77 (4.99 yesterday). Getting IVF. (5) Asthma Status: Chronic Problem Specific Plan: Monitor Clinically Problem Text: PRN nebs. (6) HTN (hypertension) Status: Chronic Problem Specific Plan: Monitor Clinically Problem Text: OutPt HCTZ held. (7) Anxiety Status: Chronic Problem Specific Plan: Monitor Clinically Problem Text: Outpt Duloxetine and lorazepam currently held. Plan/VTE VTE Prophylaxis Ordered?: Yes Plan/Urinary Catheter Reason for insertion/continuin: Critical Pt monitoring VS, I&O, 24H, [facility] Vital Signs/I&O Vital Signs Date Time Temp Pulse Resp B/P Pulse Ox O2 Delivery O2 Flow Rate FiO2 12/06/16 08:00 98.4 70 20 126/67 93 Nasal Cannula 2.0 I&O- Last 24 Hours up to 6 AM 12/06/16 06:00 Intake Total 2350 ml Output Total 1555 ml Balance 795 ml Laboratory Data 24H LABS Laboratory Tests 2 12/05/16 16:20: Creatine Kinase MB 4.9H, Creatine Kinase MB Relative Index 0.15, Total Creatine Kinase 3086H, Troponin I 0.16H 12/06/16 04:52: Total Creatine Kinase 1714H, Blood Urea Nitrogen 85H, Creatinine 3.12H, Sodium Level 155H, Potassium Level 4.0, Chloride Level 124H, Carbon Dioxide Level 21, Calcium Level 7.7L, Aspartate Amino Transf (AST/SGOT) 70H, Alanine Aminotransferase (ALT/SGPT) 43, Alkaline Phosphatase 73, Total Bilirubin 1.0#, Total Protein 6.3L, Albumin 2.6L, Albumin/Globulin Ratio 0.70L, Anion Gap 10, White Blood Count 18.5H, Red Blood Count 4.83, Hemoglobin 15.1, Hematocrit 45.9 , Mean Corpuscular Volume 94.9, Mean Corpuscular Hemoglobin 31.3, Mean Corpuscular Hemoglobin Concent 33.0, Red Cell Distribution Width 13.5, Platelet Count 86L, Neutrophils (%) (Auto) 84.9H, Lymphocytes (%) (Auto) 8.7L, Monocytes (%) (Auto) 4.8, Eosinophils (%) (Auto) 0.4, Basophils (%) (Auto) 0.0, Neutrophils # (Auto) 15.7H, Lymphocytes # (Auto) 1.8, Monocytes # (Auto) 0.9H, Eosinophils # (Auto) 0.1, Basophils # (Auto) 0.0, C-Reactive Protein, Quantitative 14.50H, Erythrocyte Sedimentation Rate 7, Glomerular Filtration Rate 21.8L, Large Unclassified Cells # 0.2, Large Unclassified Cells % 1.1, Magnesium Level 3.2H 12/06/16 09:09: 12/06/16 09:10: 12/06/16 12:04: CBC/BMP Laboratory Tests 12/06/16 04:52 Calcium Level 7.7 L, Aspartate Amino Transf (AST/SGOT) 70 H, Alanine Aminotransferase (ALT/SGPT) 43, Total Creatine Kinase 1714 H, Alkaline Phosphatase 73, Total Bilirubin 1.0 #, Total Protein 6.3 L, Albumin 2.6 L, Red Blood Count 4.83, Mean Corpuscular Volume 94.9, Mean Corpuscular Hemoglobin 31.3 , Mean Corpuscular Hemoglobin Concent 33.0, Red Cell Distribution Width 13.5, Neutrophils (%) (Auto) 84.9 H, Lymphocytes (%) (Auto) 8.7 L, Monocytes (%) (Auto ) 4.8, Eosinophils (%) (Auto) 0.4, Basophils (%) (Auto) 0.0, Neutrophils # (Auto ) 15.7 H, Lymphocytes # (Auto) 1.8, Monocytes # (Auto) 0.9 H, Eosinophils # ( Auto) 0.1, Basophils # (Auto) 0.0 Microbiology Microbiology 12/04/16 Blood Culture - Preliminary, Resulted No growth after 24 hours . All specim... 12/04/16 Blood Culture - Preliminary, Resulted No growth after 24 hours . All specim... 12/04/16 Influenza Virus Type A Antigen - Final, Complete 12/04/16 Influenza Virus Type B Antigen - Final, Complete 12/04/16 Urine Culture - Final, Complete EAMON EMERSON MD Dec 06, 2016 13:20
[2016-12-06] MEDS ORDERED: SODIUM BICARBONATE 8.4% INJ 50MEQ 50 ML VIAL As Ordered ONE (13:58)
[2016-12-06] MEDS ORDERED: ISOVUE-300 61% 50ML VIAL (Q9967) As Ordered ONE (13:58)
[2016-12-06] MEDS ORDERED: LIDOCAINE W/EPINEPHRINE 1% 20ML VIAL As Ordered ONE (13:58)
[2016-12-06] MEDS ORDERED: LIDOCAINE 2% MDV 20 ML VIAL As Ordered ONE (13:58)
[2016-12-06] MEDS ORDERED: VANCOMYCIN HCL 1,000 MG, VIAL MATE ADAPTER 1 EACH in D5W 250 ML IV ONE (14:00)
--- NOTE | 2016-12-06 14:41 | PHACANCOPD ---
PHARMACY VANCOMYCIN DOSING Pt Demographics Demographics Patient Age:61 , Weight:103.500 , Gender: male Adjusted Body Weight Date: 12/05/16, Adjusted Body Weight: [84.6] Kg Events Past 24 Hours Events Past 24 Hours: NO: Change in CrCl, Dialysis, Diuretic Therapy, Elevation in WBC, Fever, Other, Pending Diagnostics, Pending Procedures Vancomycin Vancomycin Target Ranges: 15-20 mcg/ml Vancomycin Load Y/N: Yes Load Dose Date Time Vancomycin Load Dose: 1500MG Date: 12-05 Time: 0100 Vancomycin Dose Date: 12/06/16. Current Vancomycin Dose: [1 GRAM @ 1400] Date: 12/05/16. Current Vancomycin Dose: Intermittent Dosing?: Yes Labs Labs Item Value Date Time White Blood Count 16.9 K/mm3 H 12/05/16 0607 White Blood Count 18.5 K/mm3 H 12/06/16 0452 Creatinine 3.12 MG/DL H 12/06/16 0452 Random Vancomycin Level 7.5 UG/ML 12/06/16 1204 Vancomycin Level Trough 16.0 UG/ML 12/05/16 1144 Micro Microbiology 12/04/16 Blood Culture - Preliminary, Resulted No growth after 24 hours . All specim... 12/04/16 Blood Culture - Preliminary, Resulted No growth after 24 hours . All specim... 12/04/16 Influenza Virus Type A Antigen - Final, Complete 12/04/16 Influenza Virus Type B Antigen - Final, Complete 12/04/16 Urine Culture - Final, Complete Creatinine Clearance Date:12/05/16. Creatinine Clearance: [16]. Pending Labs Random level 12-07 @1200 Assessment and Plan Maintaining Current Dose?: No Reason for dose change: Trough too low Pharmacist Note Pharmacist Note Date: 12/06/16. Pharmacist note: Random was drawn approx. 36 hours post loading dose and produced a level of 7.5. Vanco 1gram x 1 was scheduled for 1400 today with a random scheduled 24 hours post dose (12/07 @ 1200). Currently still on intermittent dosing, but depending on tomorrows vanco level might be a candidate for 1 gram q24 hours. Continue to monitor renal function and adjust dose accordingly. Date: 12/05/16. Pharmacist note:loaded patient with 1500mg. Further dosing to be done intermittent by levels. First level scheduled for 12-05 @1200. Will continue to monitor and make adjustments as needed. STACEY VANG PHARMACY Dec 06, 2016 14:40
--- NOTE | 2016-12-06 17:20 | REPKIM ---
PROCEDURE: Inferior venacavagram and placement of an IVC filter MEDICAL DIAGNOSIS/CLINICAL HISTORY: Patient with a large subacute right MCA infract was found to have bilateral lower extremity deep vein thrombosis. Patient is at high risk for subsequent pulmonary embolism and cannot be sately anticoagulated at this time. The referring service has requested an IVC filter placement. INTERVENTIONALIST: Ed Solorio MD MEDICATIONS: Local Lidocaine 2% CONTRAST: 10 mL, Isovue 300 EBL: less than 10 mL FLUORO TIME: 1.4 minute DEVICE USED: Cook Celect IVC filter Lot# [id number] Procedure: The risks, benefits, and alternatives of the use of a vena cava filter were discussed with the patients legal guardian, Ms. Lucretia Denis, and informed phone consent was obtained and witnessed. The patient was brought to the interventional radiology suite where a timeout procedure was performed. The right neck was prepped and draped in a sterile fashion. After local anesthetic was established, the right internal jugular vein was punctured using a micropuncture needle under ultrasound guidance. A 7-S[place] catheter was inserted into the lower IVC vein. Dilute minimal amount of contrast was injected , serial DSA images of the abdomen were obtained and the transverse diameter of the IVC was calculated. The distance from the lowest renal vein to the common iliac vein confluence was ascertained. The filter introducer system was then positioned in the infrarenal IVC over the guidewire. Under fluoroscopic guidance, the filter was inserted into the introducer, carefully positioned and successfully deployed. The introducer was removed and complete hemostasis was achieved with manual pressure. The patient tolerated the procedure well without immediate complication. This procedure was performed using ultrasound and fluoroscopy. FINDINGS: 1) The right IJ vein is patent and compressible. 2) The IVC is normal in course and caliber. 3) Successful placement of IVC filter in a satisfactory position and configuration. IMPRESSION: Successful IVC filter placement as discussed above. The Celect IVC filter can stay permanently or can be retrievable. Once the need for caval filter ration has passed, please contact interventional radiology, for filter retrieval if clinically desired. Dr. Solorio was present for this procedure as documented in the progress notes. cc: Woo Calderon MD [facility]
[2016-12-06] MEDS: PANTOPRAZOLE 40MG INJ (PROTONIX) (C9113) IV SCH (21:31)
--- NOTE | 2016-12-06 22:02 | ECGEPIP ---
Stationary ECG Study [facility] Test Date: 2016-12-05 Pat Name: MEGHAN DOSS Department: Room: [place] [address] Gender: M Campus Aide: JEANCARLOS : 1955 Requested By: Oumar BACA Order Number: [id number] Reading MD: Danay Johnson Measurements Intervals [place] Rate: 80 P: 18 HI: 156 QRS: -22 QRSD: 93 T: 142 QT: 414 QTc: 480 Interpretive Statements SINUS RHYTHM BORDERLINE LEFT AXIS DEVIATION LEFT VENTRICULAR HYPERTROPHY AND ST-T CHANGE SINCE 12/04/16 EVOLVING PRECORDIAL AND LATERAL T WAVE ABNORMALITIES, CONSIDER ISCHEMIA/INFARCTION Electronically Signed On 12-06-2016 22:02:29 EDT by Danay Johnson
[2016-12-07] VITALS (13 sets, daily range): BP systolic 119–159; BP diastolic 57–88
[2016-12-07] MEDS: PIPERACILLIN/TAZOBACTAM SOD 3.375 GM in D5W MINI-BAG PLUS 50 ML IV SCH ×3 (03:44→19:32)
[2016-12-07] MEDS: NS 1,000 ML IV SCH (05:28)
[2016-12-07] MEDS: LORazepam 1 MG TAB PO SCH ×2 (05:28→12:00)
[2016-12-07 05:29] LABS: BASO % 0.1 % (0.0-1.0); EOS # 0.1 K/mm3 (0.0-0.50); EOS % 0.4 % (0.0-3.0); LARGE UNSTAINED CELL # 0.3 K/mm3 (0.0-0.4); LARGE UNSTAINED CELL % 1.6 % (0.0-4.0); LYMPH # 2.9 K/mm3 (1.5-4.5); LYMPH % 16.8 % (24.0-44.0); MEAN CORPUSCULAR HEMOGLOBIN 30.9 pg (27.0-33.0); MEAN CORPUSCULAR HGB CONC 31.9 g/dl (32.0-36.5); MEAN CORPUSCULAR VOLUME 96.9 fl (80.0-96.0); MONO # 0.8 K/mm3 (0.0-0.8); MONO % 4.9 % (0.0-5.0); NEUTROPHILS # 12.1 K/mm3 (1.8-7.7); NEUTROPHILS % 76.2 % (36.0-66.0); RED CELL DISTRIBUTION WIDTH 13.5 % (11.5-14.5); WHITE BLOOD COUNT 15.8 K/mm3 (4.0-10.0)
[2016-12-07] MEDS: SLF 3 ML SYR IV SCH ×3 (05:29→21:43)
[2016-12-07 05:44] LABS: ALBUMIN 2.9 GM/DL (3.2-5.2); ALBUMIN/GLOBULIN RATIO 0.67 (1.00-1.93); BILIRUBIN,TOTAL 0.9 MG/DL (0.2-1.0); CALCIUM LEVEL 7.7 MG/DL (8.8-10.2); CREATININE FOR GFR 2.51 MG/DL (0.70-1.30); MAGNESIUM LEVEL 3.4 MG/DL (1.8-2.4); POTASSIUM SERUM 4.1 MEQ/L (3.5-5.1); TOTAL PROTEIN 7.2 GM/DL (6.4-8.2)
[2016-12-07 05:51] LABS: PLATELET COUNT, AUTOMATED 95 k/mm3 (150-450)
[2016-12-07] MEDS: NS 0.45% 1,000 ML IV SCH ×2 (07:51→21:42)
[2016-12-07] MEDS: PRIMIDONE 50 MG TAB PO SCH ×2 (09:07→21:43)
[2016-12-07] MEDS: ASPIRIN 300 MG SUPP PR SCH (09:07)
[2016-12-07] MEDS: NYSTATIN 100,000 UNITS/GM TOPICAL PWD 15 GM TOP SCH ×2 (09:08→21:43)
--- NOTE | 2016-12-07 09:51 | REP ---
CT HEAD WITHOUT CONTRAST: HISTORY: Infarction. COMPARISON: 12/06/2016 Decreased attenuation is present in the right temporal and parietal and posterior right frontal lobes. There is mass effect with effacement of the overlying cortical sulci and partial effacement of the body of the right lateral ___and third ventricles with minimal midline shift to the left. This is changed compared to the previous study. There is no intraparenchymal hemorrhage or mass. The ventricular system and cortical sulci are dilated consistent with mild volume loss. There is no extracerebral collection. Mucosal thickening is present in the sinuses. IMPRESSION: Acute right middle cerebral artery territory infarction with mass effect and minimal midline shift to the left unchanged compared to the previous study. Signed by Toni Jackson MD 12/07/2016 10:23 A
--- NOTE | 2016-12-07 14:44 | PHACANCOPD ---
PHARMACY VANCOMYCIN DOSING Pt Demographics Demographics Patient Age:61 , Weight:104.000 , Gender: male Adjusted Body Weight Date: 12/05/16, Adjusted Body Weight: [84.6] Kg Events Past 24 Hours Events Past 24 Hours: NO: Change in CrCl, Dialysis, Diuretic Therapy, Elevation in WBC, Fever, Other, Pending Diagnostics, Pending Procedures Vancomycin Vancomycin Target Ranges: 15-20 mcg/ml Vancomycin Load Y/N: Yes Load Dose Date Time Vancomycin Load Dose: 1500MG Date: 12-05 Time: 0100 Vancomycin Dose Date: 12/07/16. Current Vancomycin Dose: [750mg IV q12h@15] Date: 12/06/16. Current Vancomycin Dose: [1 GRAM @ 1400] Date: 12/05/16. Current Vancomycin Dose: Intermittent Dosing?: No Labs Labs Item Value Date Time White Blood Count 16.9 K/mm3 H 12/05/16 0607 White Blood Count 18.5 K/mm3 H 12/06/16 0452 White Blood Count 15.8 K/mm3 H 12/07/16 0459 Creatinine 3.12 MG/DL H 12/06/16 0452 Creatinine 2.51 MG/DL H 12/07/16 0459 Micro Microbiology 12/04/16 Blood Culture - Preliminary, Resulted No Growth after 48 hours. All Specime... 12/04/16 Blood Culture - Preliminary, Resulted No Growth after 48 hours. All Specime... 12/04/16 Influenza Virus Type A Antigen - Final, Complete 12/04/16 Influenza Virus Type B Antigen - Final, Complete 12/04/16 Urine Culture - Final, Complete Creatinine Clearance Date:12/05/16. Creatinine Clearance: [16]. Pending Labs Random level 12-07 @1200 Assessment and Plan Maintaining Current Dose?: No Reason for dose change: Change in serum Cr Pharmacist Note Pharmacist Note 12/07: Patient's Scr continues to improve since admission. We changed patient from intermittent dosing to Vancomycin 750mg IV q12h starting at 1500. His Random today came back at 10.6. We will continue to monitor his renal function closely and make adjustments as necessary. Date: 12/06/16. Pharmacist note: Random was drawn approx. 36 hours post loading dose and produced a level of 7.5. Vanco 1gram x 1 was scheduled for 1400 today with a random scheduled 24 hours post dose (12/07 @ 1200). Currently still on intermittent dosing, but depending on tomorrows vanco level might be a candidate for 1 gram q24 hours. Continue to monitor renal function and adjust dose accordingly. Date: 12/05/16. Pharmacist note:loaded patient with 1500mg. Further dosing to be done intermittent by levels. First level scheduled for 12-05 @1200. Will continue to monitor and make adjustments as needed. [facility] Dec 07, 2016 14:44
[2016-12-07] MEDS: VANCOMYCIN HCL 750 MG, VIAL MATE ADAPTER 1 EACH in D5W 250 ML IV SCH (15:23)
[2016-12-07] MEDS: PANTOPRAZOLE 40MG INJ (PROTONIX) (C9113) IV SCH (21:43)
[2016-12-07] MEDS: LORazepam 0.5 MG TAB PO SCH (21:43)
[2016-12-08] VITALS (8 sets, daily range): BP systolic 102–153; BP diastolic 59–84
--- NOTE | 2016-12-08 01:24 | IPNPDOC ---
Subjective Date Seen The patient was seen on 12/08/16. Subjective Chief Complaint/HPI The patient is a 61-year-old male admitted with a reason for visit of Acute Renal Failure, Cva, Sepsis, Rhabdomyolysis. Events since last encounter Patient's neurological deficits remain. His tongue protrudes L. He answers questions appropriately, but quickly gets off topic, and speech is difficult to understand. He repeatedly asked for soda. Constitutional: Denies: Chills, Fever Pulmonary: Denies: Cough, Dyspnea Cardiovascular: Denies: Chest Pain, Palpitations Gastrointestinal: Denies: Constipation, Diarrhea, Nausea, Vomiting Objective Physical Examination General Exam: Positive: Alert, No Acute Distress ENT Exam: Positive: Atraumatic Neck Exam: Positive: Supple, Negative: JVD Chest Exam: Positive: Clear to auscultation, Normal air movement Heart Exam: Positive: Rate Normal, Regular Rhythm Abdomen Exam: Positive: Normal bowel sounds, Soft, Negative: Tenderness Extremity Exam: Positive: Edema (L>R) Neuro Exam: Negative: Cranial Nerves 3-12 NL (tongue deviates left, right facial droop, gaze palsy, pupils dilated 4 mm), Normal Speech (Dysarthric speech ), Strength at 5/5 X4 ext (paralysis of left arm and leg; right facial droop) Assessment /Plan Problems (1) CVA (cerebral vascular accident) Status: Acute Problem Specific Plan: Consult Specialist, Monitor Clinically, Repeat Labs Problem Text: Severe right MCA stroke at its origin. Neuro and neurosurgery were consulted at admission. Awaiting day 3 status post stroke to initiate Eliquis, to await confirmation that stroke does not become hemorrhagic. EEG done 12/06/2016. Follow-up CT 12/06/2016 shows no hemorrhagic conversion as of yet. IVC filter placed 12/06/[address] Solorio. Echo shows no significant valvular disease, slightly elevated central venous pressure, normal LV size and systolic function. - Follow-up EEG results - ALON with bubble; per neuro - hypercoag workup pending - repeat CT w/o to eval for hemorrhagic conversion 12/07/16, 12/08/2016, 2016 per neuro - these are been ordered -Pureed Diet with pudding thick (2) Sepsis Status: Acute Problem Specific Plan: Monitor Clinically, Repeat Labs Problem Text: 12/05 - WBC 16.9 (19 at admission). On Zosyn. (3) Rhabdomyolysis Status: Acute Problem Specific Plan: Monitor Clinically, Repeat Labs Problem Text: 12/05 - CK 9001 - 9944 - 2009. Getting IVF. (4) Acute renal failure Status: Acute Problem Specific Plan: Monitor Clinically, Repeat Labs Problem Text: 12/05 - Creatinine 3.77 (4.99 yesterday). Getting IVF. (5) Asthma Status: Chronic Problem Specific Plan: Monitor Clinically Problem Text: PRN nebs. (6) HTN (hypertension) Status: Chronic Problem Specific Plan: Monitor Clinically Problem Text: OutPt HCTZ held. (7) Anxiety Status: Chronic Problem Specific Plan: Monitor Clinically Problem Text: Outpt Duloxetine and lorazepam currently held. Plan/VTE VTE Prophylaxis Ordered?: Yes Plan/Urinary Catheter Reason for insertion/continuin: Critical Pt monitoring VS, I&O, 24H, Fishbone Vital Signs/I&O Vital Signs Date Time Temp Pulse Resp B/P Pulse Ox O2 Delivery O2 Flow Rate FiO2 12/08/16 00:00 99.2 67 17 145/78 97 Room Air 12/07/16 10:00 2.0 I&O- Last 24 Hours up to 6 AM 12/08/16 06:00 Intake Total 2325 ml Output Total 1225 ml Balance 1100 ml Laboratory Data 24H LABS Laboratory Tests 2 12/07/16 04:59: Blood Urea Nitrogen 79H, Creatinine 2.51H, Sodium Level 155H, Potassium Level 4.1, Chloride Level 126H, Carbon Dioxide Level 23, Calcium Level 7.7L, Aspartate Amino Transf (AST/SGOT) 64H, Alanine Aminotransferase (ALT/SGPT) 53, Total Creatine Kinase 1201H, Alkaline Phosphatase 81, Total Bilirubin 0.9, Total Protein 7.2, Albumin 2.9L, Albumin/Globulin Ratio 0.67L, Anion Gap 6L, White Blood Count 15.8H, Red Blood Count 5.34, Hemoglobin 16.5, Hematocrit 51.7 , Mean Corpuscular Volume 96.9H, Mean Corpuscular Hemoglobin 30.9, Mean Corpuscular Hemoglobin Concent 31.9L, Red Cell Distribution Width 13.5, Platelet Count 95L, Neutrophils (%) (Auto) 76.2H, Lymphocytes (%) (Auto) 16.8L, Monocytes (%) (Auto) 4.9, Eosinophils (%) (Auto) 0.4, Basophils (%) (Auto) 0.1, Neutrophils # (Auto) 12.1H, Lymphocytes # (Auto) 2.9, Monocytes # (Auto) 0.8, Eosinophils # (Auto) 0.1, Basophils # (Auto) 0.0, Glomerular Filtration Rate 28.0L, Large Unclassified Cells # 0.3, Large Unclassified Cells % 1.6, Magnesium Level 3.4H 12/07/16 12:55: Random Vancomycin Level 10.6 CBC/BMP Laboratory Tests 12/07/16 04:59 Calcium Level 7.7 L, Aspartate Amino Transf (AST/SGOT) 64 H, Alanine Aminotransferase (ALT/SGPT) 53, Total Creatine Kinase 1201 H, Alkaline Phosphatase 81, Total Bilirubin 0.9, Total Protein 7.2, Albumin 2.9 L, Red Blood Count 5.34, Mean Corpuscular Volume 96.9 H, Mean Corpuscular Hemoglobin 30.9, Mean Corpuscular Hemoglobin Concent 31.9 L, Red Cell Distribution Width 13.5, Neutrophils (%) (Auto) 76.2 H, Lymphocytes (%) (Auto) 16.8 L, Monocytes (% ) (Auto) 4.9, Eosinophils (%) (Auto) 0.4, Basophils (%) (Auto) 0.1, Neutrophils # (Auto) 12.1 H, Lymphocytes # (Auto) 2.9, Monocytes # (Auto) 0.8, Eosinophils # (Auto) 0.1, Basophils # (Auto) 0.0 Microbiology Microbiology 12/04/16 Blood Culture - Preliminary, Resulted No Growth after 72 hours. All specime... 12/04/16 Blood Culture - Preliminary, Resulted No Growth after 72 hours. All specime... 12/04/16 Influenza Virus Type A Antigen - Final, Complete 12/04/16 Influenza Virus Type B Antigen - Final, Complete 12/04/16 Urine Culture - Final, Complete REBECCA MELTON DO Dec 08, 2016 01:24
[2016-12-08] MEDS: VANCOMYCIN HCL 750 MG, VIAL MATE ADAPTER 1 EACH in D5W 250 ML IV SCH ×2 (02:12→15:48)
[2016-12-08] MEDS: NS 0.45% 1,000 ML IV SCH ×3 (02:45→21:25)
[2016-12-08] MEDS: PIPERACILLIN/TAZOBACTAM SOD 3.375 GM in D5W MINI-BAG PLUS 50 ML IV SCH ×3 (03:53→19:29)
[2016-12-08 04:56] LABS: BASO % 0.1 % (0.0-1.0); EOS # 0.1 K/mm3 (0.0-0.50); LARGE UNSTAINED CELL # 0.3 K/mm3 (0.0-0.4); LARGE UNSTAINED CELL % 2.3 % (0.0-4.0); LYMPH # 2.7 K/mm3 (1.5-4.5); LYMPH % 21.8 % (24.0-44.0); MEAN CORPUSCULAR HEMOGLOBIN 31.4 pg (27.0-33.0); MEAN CORPUSCULAR HGB CONC 32.3 g/dl (32.0-36.5); MEAN CORPUSCULAR VOLUME 97.1 fl (80.0-96.0); MONO # 0.9 K/mm3 (0.0-0.8); NEUTROPHILS # 7.4 K/mm3 (1.8-7.7); NEUTROPHILS % 66.7 % (36.0-66.0); PLATELET COUNT, AUTOMATED 71 k/mm3 (150-450); RED CELL DISTRIBUTION WIDTH 13.3 % (11.5-14.5); WHITE BLOOD COUNT 11.1 K/mm3 (4.0-10.0)
[2016-12-08 05:17] LABS: ALBUMIN 2.2 GM/DL (3.2-5.2); ALBUMIN/GLOBULIN RATIO 0.63 (1.00-1.93); CALCIUM LEVEL 7.8 MG/DL (8.8-10.2); CREATININE FOR GFR 2.11 MG/DL (0.70-1.30); GLOMERULAR FILTRATION RATE 34.2 (>49); MAGNESIUM LEVEL 3.2 MG/DL (1.8-2.4); POTASSIUM SERUM 4.1 MEQ/L (3.5-5.1); TOTAL PROTEIN 5.7 GM/DL (6.4-8.2)
[2016-12-08] MEDS: SLF 3 ML SYR IV SCH ×3 (05:21→21:25)
--- NOTE | 2016-12-08 05:25 | EEG ---
DATE OF PROCEDURE: 12/06/2016 REFERRING PHYSICIAN: Dr. Woo Calderon DIAGNOSIS: Stroke. EEG NUMBER: [id number]. 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 He also has deep venous thrombosis of legs. He is currently on Zosyn, apixaban, primidone dexamethasone, Protonix, etc. TECHNICAL DESCRIPTION: This digital EEG was recorded by 21 scalp, ear and two EKG electrodes and was reviewed in bipolar and referential montages following reformatting in 10-20 international electrode placement system. INTERPRETATION: Patient was noted to be in awake and drowsy states during this EEG. Resting awake background rhythm consisted of 7-8 Hz theta activity measuring 15-40 microvolts in amplitude. Attenuation of background rhythm was noted in right parietal occipital and posterior temporal head regions. Stage I and II sleep were reviewed and again showed attenuation of normal sleep activity in right parietal occipital and posterior temporal head regions. Hyperventilation could not be performed. Photic stimulation remained unremarkable. EKG revealed normal sinus rhythm. No clear epileptiform abnormalities were seen. No clinical or electrographic seizures were recorded. CONCLUSION: This EEG in awake, drowsy states, stage I and II sleep is abnormal due to presence of attenuation of voltage and normal activity in right parietal occipital and posterior temporal head region consistent with focal cortical structural or functional abnormality. Mild generalized slowing was also noted indicative of nonspecific diffuse cerebral dysfunction such as seen in encephalopathy. No epileptiform abnormalities were seen. Clinical correlation is recommended.
[2016-12-08] MEDS: PRIMIDONE 50 MG TAB PO SCH ×2 (08:13→20:10)
[2016-12-08] MEDS: LORazepam 0.5 MG TAB PO SCH ×2 (08:13→21:00)
[2016-12-08] MEDS: ASPIRIN 300 MG SUPP PR SCH (08:13)
[2016-12-08] MEDS: NYSTATIN 100,000 UNITS/GM TOPICAL PWD 15 GM TOP SCH ×2 (08:14→20:11)
--- NOTE | 2016-12-08 09:44 | REP ---
CT HEAD WITHOUT CONTRAST: HISTORY: Infarction. COMPARISON: 12/07/2016 Decreased attenuation is present in the right temporal and parietal and posterior right frontal lobes. There is mass effect with effacement over the overlying cortical sulci and partial effacement of the body of the right lateral and third ventricles with minimal midline shift to the left. These findings are unchanged compared to the previous study. There is no intraparenchymal hemorrhage or mass. The ventricular system and cortical sulci are dilated, consistent with mild volume loss. There is no extracerebral collection. Mucosal thickening is present in the ethmoid and maxillary sinuses. IMPRESSION: Acute right middle cerebral artery territory infarction with mass effect and minimal midline shift to the left, unchanged compared to the previous study. Signed by Toni Jackson MD 12/08/2016 10:03 A
--- NOTE | 2016-12-08 15:49 | PHACANCOPD ---
PHARMACY VANCOMYCIN DOSING Pt Demographics Demographics Patient Age:61 , Weight:105.800 , Gender: male Adjusted Body Weight Date: 12/05/16, Adjusted Body Weight: [84.6] Kg Events Past 24 Hours Events Past 24 Hours: YES: Change in CrCl (CrCl continues to improve) Vancomycin Vancomycin Target Ranges: 15-20 mcg/ml Vancomycin Load Y/N: Yes Load Dose Date Time Vancomycin Load Dose: 1500MG Date: 12-05 Time: 0100 Vancomycin Dose Date: 12/07/16. Current Vancomycin Dose: [750mg IV q12h@15] Date: 12/06/16. Current Vancomycin Dose: [1 GRAM @ 1400] Date: 12/05/16. Current Vancomycin Dose: Intermittent Dosing?: No Labs Labs Item Value Date Time Creatinine 3.12 MG/DL H 12/06/16 0452 Creatinine 2.51 MG/DL H 12/07/16 0459 Creatinine 2.11 MG/DL H 12/08/16 0433 White Blood Count 18.5 K/mm3 H 12/06/16 0452 White Blood Count 15.8 K/mm3 H 12/07/16 0459 White Blood Count 11.1 K/mm3 H 12/08/16 0433 Random Vancomycin Level 7.5 UG/ML 12/06/16 1204 Random Vancomycin Level 10.6 UG/ML 12/07/16 1255 Vancomycin Level Trough 13.7 UG/ML 12/08/16 1443 Micro Microbiology 12/04/16 Blood Culture - Preliminary, Resulted No Growth after 72 hours. All specime... 12/04/16 Blood Culture - Preliminary, Resulted No Growth after 72 hours. All specime... 12/04/16 Influenza Virus Type A Antigen - Final, Complete 12/04/16 Influenza Virus Type B Antigen - Final, Complete 12/04/16 Urine Culture - Final, Complete Creatinine Clearance Date:12/08/16. Creatinine Clearance: [39]. Date:12/05/16. Creatinine Clearance: [16]. Assessment and Plan Maintaining Current Dose?: Yes Reason for dose change: No Dose Change Pharmacist Note Pharmacist Note Date: 12/08/16. Pharmacist note: Patients CrCl continues to improve. Trough returned @ 13.7 after 2 scheduled doses. Remains on 750mg iv q12 hours and follow up with another trough in a few days. Continue to monitor renal function and adjust dose as needed. 12/07: Patient's Scr continues to improve since admission. We changed patient from intermittent dosing to Vancomycin 750mg IV q12h starting at 1500. His Random today came back at 10.6. We will continue to monitor his renal function closely and make adjustments as necessary. Date: 12/06/16. Pharmacist note: Random was drawn approx. 36 hours post loading dose and produced a level of 7.5. Vanco 1gram x 1 was scheduled for 1400 today with a random scheduled 24 hours post dose (12/07 @ 1200). Currently still on intermittent dosing, but depending on tomorrows vanco level might be a candidate for 1 gram q24 hours. Continue to monitor renal function and adjust dose accordingly. Date: 12/05/16. Pharmacist note:loaded patient with 1500mg. Further dosing to be done intermittent by levels. First level scheduled for 12-05 @1200. Will continue to monitor and make adjustments as needed. STACEY VANG [facility] Dec 08, 2016 15:48
[2016-12-08 19:20] LABS: CALCIUM LEVEL 7.6 MG/DL (8.8-10.2); CREATININE FOR GFR 1.95 MG/DL (0.70-1.30); GLOMERULAR FILTRATION RATE 37.4 (>49)
[2016-12-08] MEDS: PANTOPRAZOLE 40MG INJ (PROTONIX) (C9113) IV SCH (20:10)
[2016-12-09] VITALS (11 sets, daily range): BP systolic 112–149; BP diastolic 56–81
[2016-12-09] MEDS: VANCOMYCIN HCL 750 MG, VIAL MATE ADAPTER 1 EACH in D5W 250 ML IV SCH (03:47)
--- NOTE | 2016-12-09 03:54 | IPNPDOC ---
Subjective Date Seen The patient was seen on 12/09/16. Subjective Chief Complaint/HPI The patient is a 61-year-old male admitted with a reason for visit of Acute Renal Failure, Cva, Sepsis, Rhabdomyolysis. Events since last encounter EEG performed, consistent with encephalopathy. Patient sleepy but arousable, gave a hand squeeze, opened eyes to tactile stimulation; mumbled but I could not understand his speech. General: Reports: ROS Unobtainable Objective Physical Examination General Exam: Positive: No Acute Distress ENT Exam: Positive: Atraumatic Neck Exam: Positive: Supple, Negative: JVD Chest Exam: Positive: Clear to auscultation, Normal air movement Heart Exam: Positive: Rate Normal, Regular Rhythm Abdomen Exam: Positive: Normal bowel sounds, Soft, Negative: Tenderness Extremity Exam: Positive: Edema (L>R) Neuro Exam: Positive: Normal Speech (Dysarthric speech), Strength at 5/5 X4 ext (paralysis of left arm and leg; right facial droop), Negative: Cranial Nerves 3-12 NL (tongue deviates left, right facial droop, gaze palsy, pupils dilated 4 mm) Assessment /Plan Problems (1) CVA (cerebral vascular accident) Status: Acute Problem Specific Plan: Consult Specialist, Monitor Clinically, Repeat Labs Problem Text: 12/08 -- spoke with Dr. Awad, who states that anticoagulation is a risk/benefit judgment; he would be OK with initiation of anticoagulation tomorrow. He recommends continuing aspirin and beginning warfarin (which allows more time before patient is therapeutic) or stopping aspirin and beginning Lovenox and warfarin. 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 Neuro and neurosurgery were consulted at admission. Awaiting day 3 status post stroke to initiate Eliquis, to await confirmation that stroke does not become hemorrhagic. EEG done 12/06/2016. Follow-up CT 12/06/2016 shows no hemorrhagic conversion as of yet. IVC filter placed 12/06/[address] Solorio. Echo shows no significant valvular disease, slightly elevated central venous pressure, normal LV size and systolic function. - Follow-up EEG results - ALON with bubble; per neuro - hypercoag workup pending - repeat CT w/o to eval for hemorrhagic conversion 12/07/16, 12/08/2016, 2016 per neuro - these are been ordered -Pureed Diet with pudding thick (2) Sepsis Status: Acute Problem Specific Plan: Monitor Clinically, Repeat Labs Problem Text: 12/05 - WBC 16.9 (19 at admission). On Zosyn. (3) Rhabdomyolysis Status: Acute Problem Specific Plan: Monitor Clinically, Repeat Labs Problem Text: 12/08 -- renal function progressively improving 12/05 - CK 3881 - 4407 - 2906. Getting IVF. (4) Acute renal failure Status: Acute Problem Specific Plan: Monitor Clinically, Repeat Labs Problem Text: 12/08 -- renal function progressively improving 12/05 - Creatinine 3.77 (4.99 yesterday). Getting IVF. (5) Asthma Status: Chronic Problem Specific Plan: Monitor Clinically Problem Text: PRN nebs. (6) HTN (hypertension) Status: Chronic Problem Specific Plan: Monitor Clinically Problem Text: OutPt HCTZ held. (7) Anxiety Status: Chronic Problem Specific Plan: Monitor Clinically Problem Text: Outpt Duloxetine and lorazepam currently held. (8) Hypernatremia Status: Acute Problem Text: 12/08 -- worse this a.m., increased D5 1/2 NS rate and rechecked this afternoon, with improvement. If it does not continue to improve tomorrow, likely consider D5W. Plan/VTE VTE Prophylaxis Ordered?: Yes Plan/Urinary Catheter Reason for insertion/continuin: Critical Pt monitoring VS, I&O, 24H, [facility] Vital Signs/I&O Vital Signs Date Time Temp Pulse Resp B/P Pulse Ox O2 Delivery O2 Flow Rate FiO2 12/08/16 22:01 65 20 139/72 100 Room Air 12/08/16 20:00 98.3 12/07/16 10:00 2.0 I&O- Last 24 Hours up to 6 AM 12/09/16 06:00 Intake Total 1360 ml Output Total 745 ml Balance 615 ml Laboratory Data 24H LABS Laboratory Tests 2 12/08/16 04:33: Blood Urea Nitrogen 59H, Creatinine 2.11H, Sodium Level 158H, Potassium Level 4.1, Chloride Level 130H, Carbon Dioxide Level 20L, Calcium Level 7.8L, Aspartate Amino Transf (AST/SGOT) 59H, Alanine Aminotransferase (ALT/SGPT) 40, Total Creatine Kinase 905H, Alkaline Phosphatase 68, Total Bilirubin 1.0, Total Protein 5.7#L, Albumin 2.2#L, Albumin/Globulin Ratio 0.63L, Anion Gap 8, White Blood Count 11.1H, Red Blood Count 4.60, Hemoglobin 14.5#, Hematocrit 44.7, Mean Corpuscular Volume 97.1H, Mean Corpuscular Hemoglobin 31.4, Mean Corpuscular Hemoglobin Concent 32.3, Red Cell Distribution Width 13.3, Platelet Count 71L, Neutrophils (%) (Auto) 66.7H, Lymphocytes (%) (Auto) 21.8L, Monocytes (%) (Auto) 8.0H, Eosinophils (%) (Auto) 1.0, Basophils (%) (Auto) 0.1 , Neutrophils # (Auto) 7.4, Lymphocytes # (Auto) 2.7, Monocytes # (Auto) 0.9H, Eosinophils # (Auto) 0.1, Basophils # (Auto) 0.0, Glomerular Filtration Rate 34.2L, Large Unclassified Cells # 0.3, Large Unclassified Cells % 2.3, Magnesium Level 3.2H 12/08/16 14:43: Vancomycin Level Trough 13.7 12/08/16 18:46: Blood Urea Nitrogen 42H, Creatinine 1.95H, Sodium Level 156H, Potassium Level 4.0, Chloride Level 126H, Carbon Dioxide Level 24, Calcium Level 7.6L, Anion Gap 6L, Glomerular Filtration Rate 37.4L CBC/BMP Laboratory Tests 12/08/16 04:33 Calcium Level 7.8 L, Aspartate Amino Transf (AST/SGOT) 59 H, Alanine Aminotransferase (ALT/SGPT) 40, Total Creatine Kinase 905 H, Alkaline Phosphatase 68, Total Bilirubin 1.0, Total Protein 5.7 #L, Albumin 2.2 #L, Red Blood Count 4.60, Mean Corpuscular Volume 97.1 H, Mean Corpuscular Hemoglobin 31.4, Mean Corpuscular Hemoglobin Concent 32.3, Red Cell Distribution Width 13.3 , Neutrophils (%) (Auto) 66.7 H, Lymphocytes (%) (Auto) 21.8 L, Monocytes (%) ( Auto) 8.0 H, Eosinophils (%) (Auto) 1.0, Basophils (%) (Auto) 0.1, Neutrophils # (Auto) 7.4, Lymphocytes # (Auto) 2.7, Monocytes # (Auto) 0.9 H, Eosinophils # (Auto) 0.1, Basophils # (Auto) 0.0 12/08/16 18:46 Calcium Level 7.6 L Microbiology Microbiology 12/04/16 Blood Culture - Preliminary, Resulted No Growth after 72 hours. All specime... 12/04/16 Blood Culture - Preliminary, Resulted No Growth after 72 hours. All specime... 12/04/16 Influenza Virus Type A Antigen - Final, Complete 12/04/16 Influenza Virus Type B Antigen - Final, Complete 12/04/16 Urine Culture - Final, Complete REBECCA MELTON DO Dec 09, 2016 03:54
[2016-12-09] MEDS: PIPERACILLIN/TAZOBACTAM SOD 3.375 GM in D5W MINI-BAG PLUS 50 ML IV SCH ×2 (05:22→13:02)
[2016-12-09] MEDS: NS 0.45% 1,000 ML IV SCH ×3 (05:22→21:50)
[2016-12-09] MEDS: SLF 3 ML SYR IV SCH ×3 (05:23→21:51)
[2016-12-09 06:02] LABS: BASO % 0.3 % (0.0-1.0); EOS # 0.5 K/mm3 (0.0-0.50); EOS % 4.1 % (0.0-3.0); LARGE UNSTAINED CELL # 0.2 K/mm3 (0.0-0.4); LARGE UNSTAINED CELL % 1.6 % (0.0-4.0); LYMPH # 2.4 K/mm3 (1.5-4.5); LYMPH % 19.6 % (24.0-44.0); MEAN CORPUSCULAR HEMOGLOBIN 30.5 pg (27.0-33.0); MEAN CORPUSCULAR HGB CONC 31.9 g/dl (32.0-36.5); MEAN CORPUSCULAR VOLUME 95.4 fl (80.0-96.0); MONO # 0.6 K/mm3 (0.0-0.8); MONO % 5.5 % (0.0-5.0); NEUTROPHILS # 7.9 K/mm3 (1.8-7.7); NEUTROPHILS % 68.9 % (36.0-66.0); PLATELET COUNT, AUTOMATED 102 k/mm3 (150-450); RED CELL DISTRIBUTION WIDTH 13.3 % (11.5-14.5); WHITE BLOOD COUNT 11.4 K/mm3 (4.0-10.0)
[2016-12-09 07:52] LABS: ALBUMIN 2.2 GM/DL (3.2-5.2); ALBUMIN/GLOBULIN RATIO 0.61 (1.00-1.93); BILIRUBIN,TOTAL 1.2 MG/DL (0.2-1.0); CALCIUM LEVEL 7.8 MG/DL (8.8-10.2); CREATININE FOR GFR 1.75 MG/DL (0.70-1.30); GLOMERULAR FILTRATION RATE 42.4 (>49); MAGNESIUM LEVEL 2.7 MG/DL (1.8-2.4); POTASSIUM SERUM 4.2 MEQ/L (3.5-5.1); TOTAL PROTEIN 5.8 GM/DL (6.4-8.2)
[2016-12-09] MEDS: NYSTATIN 100,000 UNITS/GM TOPICAL PWD 15 GM TOP SCH ×2 (09:52→21:50)
[2016-12-09] MEDS: ASPIRIN 300 MG SUPP PR SCH (09:52)
[2016-12-09] MEDS: PRIMIDONE 50 MG TAB PO SCH ×2 (09:52→21:50)
[2016-12-09] MEDS: LORazepam 0.5 MG TAB PO SCH (09:52)
--- NOTE | 2016-12-09 10:14 | REP ---
CT HEAD WITHOUT CONTRAST: HISTORY: Infarction. COMPARISON: 12/08/2016 Decreased attenuation is present in the right temporal and parietal and posterior right frontal lobes. There is mass effects with effacement of the overlying cortical sulci and partial effacement of the body of the right lateral and third ventricles with minimum midline shift to the left. These findings are unchanged compared to the previous study. There is no intraparenchymal hemorrhage or mass. The ventricular system and cortical sulci are dilated consistent with mild volume loss. There is no extracerebral collection. Mucosal thickening is present in the ethmoid and maxillary sinuses. IMPRESSION: Acute right and middle cerebral artery territory infarction with mass effect and midline shift to the left unchanged compared to the previous study. Signed by Toni Jackson MD 12/09/2016 10:35 A
[2016-12-09] MEDS: ENOXAPARIN 30 MG/0.3 ML SYR (J1650) SC SCH (13:19)
--- NOTE | 2016-12-09 13:43 | IPN ---
DATE: 12/09/2016 Lee is seen in ICU. First I have seen him during his hospitalization, admitted with a huge stroke in the right middle cerebral artery distribution. He has mass effect and midline shift on CT scan today. It is unchanged from previous study. There is no hemorrhage noted. He is taking by mouth thickened substances poorly. He is still hypernatremic. His mental status is poor and he is drowsy and does not stay awake through conversations. He has had an IVC filter placed because of a deep vein thrombosis (DVT) of both lower extremities on ultrasound from 12/05. He is not anticoagulated yet as there was concern about hemorrhagic transformation. He has presumed sepsis. He is on vancomycin and Zosyn. I think was based on an elevated white count on admission and we do not actually have any proof that the patient has an infection anywhere. His blood cultures have been negative and chest x-ray has been clear. PHYSICAL EXAMINATION: 112/56, pulse 66, respiratory rate 18, 97% oxygen saturation, 98 degrees. GENERAL APPEARANCE: He is lying in bed. He has left hemiparesis. His speech is dysarthric and slurred. His answers are appropriate and goal directed, but he falls asleep easily and does not complete his sentences. LUNGS: Clear. HEART: Regular rate and rhythm. ABDOMEN: Soft, nontender, no masses. No peripheral edema. Left side is flaccid. LABORATORIES: Sodium is down to 154, creatinine is down to 1.7, albumin is 2.2. White count is 11,000, hemoglobin 13, platelets 102. Thrombophilia workup is pending. IMPRESSION: 1. Large right hemisphere/right middle cerebral artery stroke. No evidence of hemorrhagic transformation. Per yesterday's note plan is to begin warfarin therapy. I would like him to have Lovenox as well as he has established bilateral DVTs and has increased risk of extending them if he has unopposed initiation of warfarin. 2. Sepsis. No evidence of infection any of the testing. I am stopping the Zosyn and vancomycin. 3. Acute renal failure. He is improving. Continue hydration. Stop the vancomycin which is nephrotoxic. 4. Hypertension. Blood pressure is under good control off medications. 5. Hypernatremia secondary to poor oral intake. Sodium is slowly improving. I am skeptical he is going to maintain sufficient oral intake to prevent dehydration. He might end up needing a feeding tube. 6. Asthma. Stable at this time. 7. Rhabdomyolysis. Creatinine is getting progressively better. 8. Mass effect of brain secondary to stroke. He has been followed by neurology. There is no evidence of hemorrhagic transformation. He is on Mysoline, which I think he took previously for tremor.
[2016-12-09 13:57] LABS: INR 1.14
[2016-12-09] MEDS ORDERED: LORazepam 0.5 MG TAB PO PRN (14:15)
[2016-12-09] MEDS: WARFARIN SOD 5 MG TAB PO SCH (16:30)
[2016-12-09] MEDS: PANTOPRAZOLE 40MG INJ (PROTONIX) (C9113) IV SCH (21:50)
[2016-12-10] VITALS (9 sets, daily range): BP systolic 125–180; BP diastolic 72–90
[2016-12-10] MEDS: NS 0.45% 1,000 ML IV SCH ×3 (04:52→20:46)
[2016-12-10] MEDS: SLF 3 ML SYR IV SCH ×3 (05:15→21:42)
[2016-12-10 05:47] LABS: BASO % 0.4 % (0.0-1.0); EOS # 0.8 K/mm3 (0.0-0.50); EOS % 6.5 % (0.0-3.0); LARGE UNSTAINED CELL # 0.2 K/mm3 (0.0-0.4); LARGE UNSTAINED CELL % 1.2 % (0.0-4.0); LYMPH # 2.2 K/mm3 (1.5-4.5); LYMPH % 16.4 % (24.0-44.0); MEAN CORPUSCULAR HEMOGLOBIN 31.3 pg (27.0-33.0); MEAN CORPUSCULAR HGB CONC 32.7 g/dl (32.0-36.5); MEAN CORPUSCULAR VOLUME 95.9 fl (80.0-96.0); MONO # 0.5 K/mm3 (0.0-0.8); MONO % 4.2 % (0.0-5.0); NEUTROPHILS # 8.8 K/mm3 (1.8-7.7); NEUTROPHILS % 71.3 % (36.0-66.0); PLATELET COUNT, AUTOMATED 134 k/mm3 (150-450); RED CELL DISTRIBUTION WIDTH 13.3 % (11.5-14.5); WHITE BLOOD COUNT 12.4 K/mm3 (4.0-10.0)
[2016-12-10 05:58] LABS: INR 1.14
[2016-12-10 06:04] LABS: ALBUMIN 2.3 GM/DL (3.2-5.2); ALBUMIN/GLOBULIN RATIO 0.68 (1.00-1.93); CREATININE FOR GFR 1.56 MG/DL (0.70-1.30); GLOMERULAR FILTRATION RATE 48.4 (>49); MAGNESIUM LEVEL 2.5 MG/DL (1.8-2.4); POTASSIUM SERUM 3.8 MEQ/L (3.5-5.1); TOTAL PROTEIN 5.7 GM/DL (6.4-8.2)
[2016-12-10] MEDS: PRIMIDONE 50 MG TAB PO SCH ×2 (08:38→20:46)
[2016-12-10] MEDS: ASPIRIN 81 MG CHEW TABLET PO SCH (08:38)
[2016-12-10] MEDS: ENOXAPARIN 30 MG/0.3 ML SYR (J1650) SC SCH (08:38)
[2016-12-10] MEDS: NYSTATIN 100,000 UNITS/GM TOPICAL PWD 15 GM TOP SCH ×2 (08:39→20:46)
[2016-12-10] MEDS ORDERED: ASPIRIN 81 MG ENTERIC TAB PO SCH (09:00)
--- NOTE | 2016-12-10 12:28 | IPN ---
DATE: 12/10/2016 Lee is seen in the intensive care unit (ICU). The nurses say he was out of bed and doing fairly well this morning. When I was rounding on him, he was a bit lethargic and fatigued from his activity. He was a bit sedated yesterday. He was getting Ativan on a scheduled basis, so we stopped that. As far as his labs go, his hypernatremia is progressively improving. He has had no evidence of hemorrhagic transformation of his large right hemispheric stroke. PHYSICAL EXAMINATION: Blood pressure 141/74, pulse 60, respiratory rate 14, 97% oxygen saturation, 97 degrees. General Appearance: Lying in bed, left hemiparesis, slurred speech, left facial droop. Lungs: Decreased breath sounds at the bases but clear. Heart: Regular rhythm. Abdomen: Soft, nontender. No peripheral edema. LABORATORY: INR is 1.1. Sodium is 151, BUN 25, creatinine 1.5, glucose 105, white count 12, hemoglobin 13.9, platelets 134. IMPRESSION: 1. Massive right hemispheric stroke. No evidence of hemorrhagic transformation. He is on low dose Lovenox and has begun anticoagulation with warfarin, daily INRs have been ordered. 2. Sepsis. We stopped his vancomycin and Zosyn yesterday. There is no evidence of infection as a cause of his "sepsis." 3. Renal failure. Improving. Vancomycin was discontinued. Renal function has improved since then 4. Hypertension. Blood pressure is under good control off medications. 5. Hypernatremia due to poor oral intake. Slowly improving with intravenous fluids. Question is whether he is going to be able to maintain sufficient oral intake to prevent dehydration and recurrent hypernatremia without a feeding tube. He is on an altered diet at this point. 6. Rhabdomyolysis. Creatinine is improving. CPK is down. 7. Mass effect secondary to stroke. Followed by neurology. 8. Altered mental status/encephalopathy probably from the Ativan which had been changed to as needed and at this point can be discontinued.
[2016-12-10] MEDS: PANTOPRAZOLE 40MG TAB (PROTONIX) PO SCH (12:33)
[2016-12-10] MEDS: WARFARIN SOD 5 MG TAB PO SCH (17:12)
[2016-12-11 00:45] VITALS: BP 123/71
[2016-12-11] MEDS: NS 0.45% 1,000 ML IV SCH ×2 (03:14→11:41)
[2016-12-11 04:00] VITALS: BP 116/63
[2016-12-11 05:22] LABS: BASO % 0.3 % (0.0-1.0); EOS # 0.7 K/mm3 (0.0-0.50); EOS % 6.5 % (0.0-3.0); LARGE UNSTAINED CELL # 0.1 K/mm3 (0.0-0.4); LARGE UNSTAINED CELL % 0.7 % (0.0-4.0); LYMPH # 1.9 K/mm3 (1.5-4.5); LYMPH % 15.9 % (24.0-44.0); MEAN CORPUSCULAR HEMOGLOBIN 30.2 pg (27.0-33.0); MEAN CORPUSCULAR HGB CONC 32.2 g/dl (32.0-36.5); MONO # 0.5 K/mm3 (0.0-0.8); MONO % 4.7 % (0.0-5.0); NEUTROPHILS # 8.1 K/mm3 (1.8-7.7); NEUTROPHILS % 71.9 % (36.0-66.0); PLATELET COUNT, AUTOMATED 163 k/mm3 (150-450); RED CELL DISTRIBUTION WIDTH 13.4 % (11.5-14.5); WHITE BLOOD COUNT 11.2 K/mm3 (4.0-10.0)
[2016-12-11] MEDS: SLF 3 ML SYR IV SCH ×3 (05:23→20:08)
[2016-12-11 05:24] LABS: INR 1.26
[2016-12-11 05:41] LABS: ALBUMIN 2.1 GM/DL (3.2-5.2); ALBUMIN/GLOBULIN RATIO 0.66 (1.00-1.93); ALKALINE PHOSPHATASE 78 U/L (45-117); ALT/SGPT 37 U/L (12-78); ANION GAP 7 MEQ/L (8-16); AST/SGOT 46 U/L (15-37); BILIRUBIN,TOTAL 0.7 MG/DL (0.2-1.0); BLOOD UREA NITROGEN 19 MG/DL (7-18); CALCIUM LEVEL 7.6 MG/DL (8.8-10.2); CARBON DIOXIDE LEVEL 22 MEQ/L (21-32); CHLORIDE LEVEL 118 MEQ/L (98-107); CREATININE FOR GFR 1.26 MG/DL (0.70-1.30); GLOMERULAR FILTRATION RATE > 60.0 (>49); GLUCOSE, FASTING 119 MG/DL (80-110); MAGNESIUM LEVEL 2.1 MG/DL (1.8-2.4); POTASSIUM SERUM 3.6 MEQ/L (3.5-5.1); SODIUM LEVEL 147 MEQ/L (136-145); TOTAL PROTEIN 5.3 GM/DL (6.4-8.2)
[2016-12-11 06:00] VITALS: BP 112/65
[2016-12-11 08:00] VITALS: BP 141/78
[2016-12-11] MEDS: ASPIRIN 81 MG CHEW TABLET PO SCH (09:35)
[2016-12-11] MEDS: NYSTATIN 100,000 UNITS/GM TOPICAL PWD 15 GM TOP SCH ×2 (09:35→20:08)
[2016-12-11] MEDS: PANTOPRAZOLE 40MG TAB (PROTONIX) PO SCH (09:35)
[2016-12-11] MEDS: PRIMIDONE 50 MG TAB PO SCH ×2 (09:35→20:08)
[2016-12-11] MEDS: ENOXAPARIN 30 MG/0.3 ML SYR (J1650) SC SCH (09:35)
--- NOTE | 2016-12-11 13:09 | IPN ---
DATE: 12/11/2016 Lee is about the same. He has not had any physical therapy over the weekend. He apparently is taking all his thickened aspiration reducing diet adequately. Sodium is coming down gradually and at this point I think we can see how he does off the IV fluids. He is slowly anticoagulating with the warfarin. He denies any headache, chest pain or shortness of breath. PHYSICAL EXAM: 141/78, pulse 65, respiratory rate 19, 98% oxygen saturation. General Appearance: Dense left hemiparesis. Left facial droop. Slurred speech. Lungs: Decreased breath sounds, but clear. Heart: Regular rhythm. Abdomen: Obese. Nontender. No masses. No peripheral edema. Neurologic Exam: Shows left hemiparesis unchanged. LABS: INR 1.2. Sodium down to 147. White count is down to 11.2. He has a thrombophilia workup that is still pending. IMPRESSION: 1. Massive right hemispheric stroke. He will resume physical therapy tomorrow. I do not know if he would be a candidate for physical medicine and rehabilitation (PM and R). Will have to see what physical therapy says. He has not been seen this weekend. He is being anticoagulated with warfarin. He is on low dose Lovenox. Once his INR is therapeutic, Lovenox can be discontinued. 2. Question (?) sepsis. There is no evidence of infection as the cause of this. The vancomycin and Zosyn were discontinued a few days ago. 3. Renal failure is improving. 4. Hypertension. Blood pressure is in good control. 5. Hypernatremia. Stop the IV fluids. Will see whether he can maintain sufficient oral intake to prevent dehydration and hypernatremia. 6. Altered mental status/encephalopathy. Probably excessively sedated from Ativan, which has been discontinued. He has done better since this was discontinued. Tomorrow, would ask the rounding team to touch base with physical therapy to see whether he would be a candidate for PM and R referral.
[2016-12-11 16:00] VITALS: BP 164/97
[2016-12-11] MEDS: WARFARIN SOD 5 MG TAB PO SCH (16:49)
[2016-12-11 19:53] VITALS: BP 157/78
[2016-12-12 00:21] VITALS: BP 147/77
[2016-12-12] MEDS: ACETAMINOPHEN TAB 650MG DOSE (2X325MG) PO PRN ×3 (00:45→20:30)
[2016-12-12] MEDS: SLF 3 ML SYR IV SCH ×3 (03:52→20:31)
[2016-12-12 04:42] VITALS: BP 158/73
[2016-12-12 05:30] LABS: INR 1.61; MEAN CORPUSCULAR HEMOGLOBIN 30.4 pg (27.0-33.0); MEAN CORPUSCULAR HGB CONC 33.5 g/dl (32.0-36.5); MEAN CORPUSCULAR VOLUME 90.9 fl (80.0-96.0); RED CELL DISTRIBUTION WIDTH 13.3 % (11.5-14.5); WHITE BLOOD COUNT 10.4 K/mm3 (4.0-10.0)
[2016-12-12 05:40] LABS: CALCIUM LEVEL 7.7 MG/DL (8.8-10.2); CREATININE FOR GFR 1.78 MG/DL (0.70-1.30); GLOMERULAR FILTRATION RATE 41.6 (>49); POTASSIUM SERUM 3.9 MEQ/L (3.5-5.1)
[2016-12-12 08:00] VITALS: BP 129/85
[2016-12-12] MEDS: ASPIRIN 81 MG CHEW TABLET PO SCH (08:44)
[2016-12-12] MEDS: PRIMIDONE 50 MG TAB PO SCH ×2 (08:44→20:31)
[2016-12-12] MEDS: PANTOPRAZOLE 40MG TAB (PROTONIX) PO SCH (08:44)
[2016-12-12] MEDS: ENOXAPARIN 30 MG/0.3 ML SYR (J1650) SC SCH (08:45)
[2016-12-12] MEDS: NYSTATIN 100,000 UNITS/GM TOPICAL PWD 15 GM TOP SCH ×2 (08:46→20:31)
[2016-12-12] MEDS: ALBUTEROL SULFATE 2.5 MG/0.5 ML INH NEB SOLN INH PRN (10:22)
--- NOTE | 2016-12-12 10:58 | IPNPDOC ---
Subjective Date Seen The patient was seen on 12/12/16. Subjective Chief Complaint/HPI The patient is a 61-year-old male admitted with a reason for visit of Acute Renal Failure, Cva, Sepsis, Rhabdomyolysis. Events since last encounter Pt denies any new issues. Denies any CP, SOB, Abd pain. Constitutional: Denies: Chills, Fever Pulmonary: Denies: Dyspnea Cardiovascular: Denies: Chest Pain Gastrointestinal: Denies: Abdominal Pain, Nausea, Vomiting Objective Physical Examination General Exam: Positive: No Acute Distress ENT Exam: Positive: Atraumatic Neck Exam: Positive: Supple, Negative: JVD Chest Exam: Positive: Clear to auscultation, Normal air movement Heart Exam: Positive: Rate Normal, Regular Rhythm Abdomen Exam: Positive: Normal bowel sounds, Soft, Negative: Tenderness Extremity Exam: Positive: Edema (L>R) Skin Exam: Positive: Other skin issue (heels with blisters) Neuro Exam: Positive: Normal Speech (Dysarthric speech), Strength at 5/5 X4 ext (paralysis of left arm and leg; right facial droop), Negative: Cranial Nerves 3-12 NL (tongue deviates left, right facial droop, gaze palsy, pupils dilated 4 mm) Assessment /Plan Problems (1) CVA (cerebral vascular accident) Status: Acute Problem Specific Plan: Consult Specialist, Monitor Clinically, Repeat Labs Problem Text: 12/12 - Pt is being anticoagulated with warfarin and lovenox until warfarin is therapeutic. INR trending up and is 1.6 today. Physical therapy working with pt and assessing rehab options. 12/08 -- spoke with Dr. Awad, who states that anticoagulation is a risk/ benefit judgment; he would be OK with initiation of anticoagulation tomorrow. He recommends continuing aspirin and beginning warfarin (which allows more time before patient is therapeutic) or stopping aspirin and beginning Lovenox and warfarin. 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 Neuro and neurosurgery were consulted at admission. Awaiting day 3 status post stroke to initiate Eliquis, to await confirmation that stroke does not become hemorrhagic. EEG done 12/06/2016. Follow-up CT 12/06/2016 shows no hemorrhagic conversion as of yet. IVC filter placed 12/06/[address] Solorio. Echo shows no significant valvular disease, slightly elevated central venous pressure, normal LV size and systolic function. - Follow-up EEG results - ALON with bubble; per neuro - hypercoag workup pending - repeat CT w/o to eval for hemorrhagic conversion 12/07/16, 12/08/2016, 2016 per neuro - these are been ordered -Pureed Diet with pudding thick (2) Sepsis Status: Acute Problem Specific Plan: Monitor Clinically, Repeat Labs Problem Text: 12/12 - Temp was up last night to 101.3. Currently afebrile. Vanco and Zosyn were d/c'ed on 12/09/16. 12/05 - WBC 16.9 (19 at admission). On Zosyn. (3) Rhabdomyolysis Status: Acute Problem Specific Plan: Monitor Clinically, Repeat Labs Problem Text: 12/12 - creatinine slightly up today at 1.78. Continue to monitor. 12/08 -- renal function progressively improving 12/05 - CK 3881 - 4407 - 2906. Getting IVF. (4) Acute renal failure Status: Acute Problem Specific Plan: Monitor Clinically, Repeat Labs Problem Text: 12/12 - creatinine slightly up today at 1.78. Continue to monitor. 12/08 -- renal function progressively improving 12/05 - Creatinine 3.77 (4.99 yesterday). Getting IVF. (5) Asthma Status: Chronic Problem Specific Plan: Monitor Clinically Problem Text: PRN nebs. (6) HTN (hypertension) Status: Chronic Problem Specific Plan: Monitor Clinically Problem Text: OutPt HCTZ held. (7) Anxiety Status: Chronic Problem Specific Plan: Monitor Clinically Problem Text: Outpt Duloxetine and lorazepam currently held. (8) Hypernatremia Status: Acute Problem Text: 12/12 - Na 142. 12/08 -- worse this a.m., increased D5 1/2 NS rate and rechecked this afternoon, with improvement. If it does not continue to improve tomorrow, likely consider D5W. Plan/VTE VTE Prophylaxis Ordered?: Yes Plan/Urinary Catheter Reason for insertion/continuin: Critical Pt monitoring Plan Family Medicine Attending Note: Patient seen and examined this afternoon; I d/w BHAVNA Sabillon and I agree with his note. Patient denies complaints today and is continuing to work with PT. Cr is higher today - I encouraged PO hydration and d/w patient that he may need IVF if he is unable to stay hydrated with PO fluid intake. He had a fever overnight - he denies any complaints today , has remained afebrile throughout the day, and WBCs are actually down today - will continue to monitor for recurrence of fever. (KES) VS, I&O, 24H, Fishbone Vital Signs/I&O Vital Signs Date Time Temp Pulse Resp B/P Pulse Ox O2 Delivery O2 Flow Rate FiO2 12/12/16 08:33 Room Air 12/12/16 08:00 99.1 80 18 129/85 96 12/09/16 14:00 1.0 I&O- Last 24 Hours up to 6 AM 12/12/16 06:00 Intake Total 1485 ml Output Total 1200 ml Balance 285 ml Laboratory Data 24H LABS Laboratory Tests 2 12/12/16 05:13: Anion Gap 10, Blood Urea Nitrogen 20H, Creatinine 1.78H, Sodium Level 142, Potassium Level 3.9, Chloride Level 112H, Carbon Dioxide Level 20L, Calcium Level 7.7L, Glomerular Filtration Rate 41.6L, Prothromb Time International Ratio 1.61, Prothrombin Time 19.2H CBC/BMP Laboratory Tests 12/12/16 05:13 Calcium Level 7.7 L, Red Blood Count 4.07 L, Mean Corpuscular Volume 90.9, Mean Corpuscular Hemoglobin 30.4, Mean Corpuscular Hemoglobin Concent 33.5, Red Cell Distribution Width 13.3 Microbiology Microbiology 12/04/16 Blood Culture - Final, Complete NO GROWTH AFTER 5 DAYS 12/04/16 Blood Culture - Final, Complete NO GROWTH AFTER 5 DAYS 12/04/16 Influenza Virus Type A Antigen - Final, Complete 12/04/16 Influenza Virus Type B Antigen - Final, Complete 12/04/16 Urine Culture - Final, Complete Oumar Nye Dec 12, 2016 10:57 CECY FRYE MD Dec 12, 2016 15:14
[2016-12-12 12:00] VITALS: BP 163/76
[2016-12-12 15:36] VITALS: BP 142/87
[2016-12-12] MEDS: WARFARIN SOD 5 MG TAB PO SCH (16:13)
[2016-12-12 20:03] VITALS: BP 145/79
[2016-12-13 00:33] VITALS: BP 166/93
[2016-12-13] MEDS: SLF 3 ML SYR IV SCH ×3 (04:20→21:25)
[2016-12-13 05:20] VITALS: BP 155/87
[2016-12-13 05:27] LABS: MEAN CORPUSCULAR HEMOGLOBIN 30.8 pg (27.0-33.0); MEAN CORPUSCULAR HGB CONC 33.3 g/dl (32.0-36.5); MEAN CORPUSCULAR VOLUME 92.4 fl (80.0-96.0); RED CELL DISTRIBUTION WIDTH 13.1 % (11.5-14.5); WHITE BLOOD COUNT 11.4 K/mm3 (4.0-10.0)
[2016-12-13 05:32] LABS: INR 1.87
[2016-12-13] MEDS: ACETAMINOPHEN TAB 650MG DOSE (2X325MG) PO PRN ×2 (05:38→17:31)
[2016-12-13 05:47] LABS: CALCIUM LEVEL 7.9 MG/DL (8.8-10.2); CREATININE FOR GFR 2.36 MG/DL (0.70-1.30); POTASSIUM SERUM 4.3 MEQ/L (3.5-5.1)
[2016-12-13 08:07] VITALS: BP 115/68
[2016-12-13] MEDS: PRIMIDONE 50 MG TAB PO SCH ×2 (08:43→21:23)
[2016-12-13] MEDS: ASPIRIN 81 MG CHEW TABLET PO SCH (08:43)
[2016-12-13] MEDS: ENOXAPARIN 30 MG/0.3 ML SYR (J1650) SC SCH (08:43)
[2016-12-13] MEDS: PANTOPRAZOLE 40MG TAB (PROTONIX) PO SCH (08:43)
[2016-12-13] MEDS: NYSTATIN 100,000 UNITS/GM TOPICAL PWD 15 GM TOP SCH ×2 (08:44→21:24)
--- NOTE | 2016-12-13 10:50 | IPNPDOC ---
Subjective Date Seen The patient was seen on 12/13/16. Subjective Chief Complaint/HPI The patient is a 61-year-old male admitted with a reason for visit of Acute Renal Failure, Cva, Sepsis, Rhabdomyolysis. Events since last encounter Pt denies any new issues. Denies CP, SOB, Abd pain. Pulmonary: Denies: Dyspnea Cardiovascular: Denies: Chest Pain Gastrointestinal: Denies: Abdominal Pain, Nausea, Vomiting Objective Physical Examination General Exam: Positive: No Acute Distress ENT Exam: Positive: Atraumatic Neck Exam: Positive: Supple, Negative: JVD Chest Exam: Positive: Clear to auscultation, Normal air movement Heart Exam: Positive: Rate Normal, Regular Rhythm Abdomen Exam: Positive: Normal bowel sounds, Soft, Negative: Tenderness Extremity Exam: Positive: Edema (L>R) Skin Exam: Positive: Other skin issue (heels with blisters) Neuro Exam: Positive: Normal Speech (Dysarthric speech), Strength at 5/5 X4 ext (paralysis of left arm and leg; right facial droop), Negative: Cranial Nerves 3-12 NL (tongue deviates left, right facial droop, gaze palsy, pupils dilated 4 mm) Assessment /Plan Problems (1) CVA (cerebral vascular accident) Status: Acute Problem Specific Plan: Consult Specialist, Monitor Clinically, Repeat Labs Problem Text: 12/13 - Pt is being anticoagulated with warfarin and lovenox until warfarin is therapeutic. INR trending up and is 1.87 today. Physical therapy working with pt and assessing rehab options, and they feel pt will be a placement. 12/12 - Pt is being anticoagulated with warfarin and lovenox until warfarin is therapeutic. INR trending up and is 1.6 today. Physical therapy working with pt and assessing rehab options. 12/08 -- spoke with Dr. Awad, who states that anticoagulation is a risk/ benefit judgment; he would be OK with initiation of anticoagulation tomorrow. He recommends continuing aspirin and beginning warfarin (which allows more time before patient is therapeutic) or stopping aspirin and beginning Lovenox and warfarin. 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 Neuro and neurosurgery were consulted at admission. Awaiting day 3 status post stroke to initiate Eliquis, to await confirmation that stroke does not become hemorrhagic. EEG done 12/06/2016. Follow-up CT 12/06/2016 shows no hemorrhagic conversion as of yet. IVC filter placed 12/06/[address] Solorio. Echo shows no significant valvular disease, slightly elevated central venous pressure, normal LV size and systolic function. - Follow-up EEG results - ALON with bubble; per neuro - hypercoag workup pending - repeat CT w/o to eval for hemorrhagic conversion 12/07/16, 12/08/2016, 2016 per neuro - these are been ordered -Pureed Diet with pudding thick (2) Sepsis Status: Acute Problem Specific Plan: Monitor Clinically, Repeat Labs Problem Text: 12/13 - Tmax 100.6 this am. Currently afebrile. WBC up slightly to 11.4. Vanco and Zosyn were d/c'ed on 12/09/16. 12/12 - Temp was up last night to 101.3. Currently afebrile. Vanco and Zosyn were d/c'ed on 12/09/16. 12/05 - WBC 16.9 (19 at admission). On Zosyn. (3) Rhabdomyolysis Status: Acute Problem Specific Plan: Monitor Clinically, Repeat Labs Problem Text: 12/13 - creatinine trending up today at 2.36. Continue to monitor. 12/12 - creatinine slightly up today at 1.78. Continue to monitor. 12/08 -- renal function progressively improving 12/05 - CK 3881 - 4407 - 2906. Getting IVF. (4) Acute renal failure Status: Acute Problem Specific Plan: Monitor Clinically, Repeat Labs Problem Text: 12/13 - creatinine trending up today at 2.36. Continue to monitor. 12/12 - creatinine slightly up today at 1.78. Continue to monitor. 12/08 -- renal function progressively improving 12/05 - Creatinine 3.77 (4.99 yesterday). Getting IVF. (5) Asthma Status: Chronic Problem Specific Plan: Monitor Clinically Problem Text: PRN nebs. (6) HTN (hypertension) Status: Chronic Problem Specific Plan: Monitor Clinically Problem Text: OutPt HCTZ held. (7) Anxiety Status: Chronic Problem Specific Plan: Monitor Clinically Problem Text: Outpt Duloxetine and lorazepam currently held. (8) Hypernatremia Status: Acute Problem Text: 12/13 - Na 148. 12/12 - Na 142. 12/08 -- worse this a.m., increased D5 1/2 NS rate and rechecked this afternoon, with improvement. If it does not continue to improve tomorrow, likely consider D5W. Plan/VTE VTE Prophylaxis Ordered?: Yes Plan/Urinary Catheter Reason for insertion/continuin: Critical Pt monitoring VS, I&O, 24H, Fishbone Vital Signs/I&O Vital Signs Date Time Temp Pulse Resp B/P Pulse Ox O2 Delivery O2 Flow Rate FiO2 12/13/16 08:47 Room Air 12/13/16 08:07 99.7 89 20 115/68 98 12/09/16 14:00 1.0 I&O- Last 24 Hours up to 6 AM 12/13/16 06:00 Intake Total 1440 ml Output Total 1200 ml Balance 240 ml Laboratory Data 24H LABS Laboratory Tests 2 12/13/16 05:00: Anion Gap 11, Blood Urea Nitrogen 24H, Creatinine 2.36H, Sodium Level 148H, Potassium Level 4.3, Chloride Level 117H, Carbon Dioxide Level 20L, Calcium Level 7.9L, Glomerular Filtration Rate 30.0L, Prothromb Time International Ratio 1.87, Prothrombin Time 21.6H CBC/BMP Laboratory Tests 12/13/16 05:00 Calcium Level 7.9 L, Red Blood Count 4.31, Mean Corpuscular Volume 92.4, Mean Corpuscular Hemoglobin 30.8, Mean Corpuscular Hemoglobin Concent 33.3, Red Cell Distribution Width 13.1 Microbiology Microbiology 12/04/16 Blood Culture - Final, Complete NO GROWTH AFTER 5 DAYS 12/04/16 Blood Culture - Final, Complete NO GROWTH AFTER 5 DAYS 12/04/16 Influenza Virus Type A Antigen - Final, Complete 12/04/16 Influenza Virus Type B Antigen - Final, Complete 12/04/16 Urine Culture - Final, Complete Oumar Nye Dec 13, 2016 10:50
[2016-12-13 11:46] VITALS: BP 132/89
[2016-12-13 14:14] LABS: PROTEIN C ANTIGEN 78 % (60-150); PROTEIN S ANTIGEN FREE 147 % (57-157); PROTEIN S ANTIGEN TOTAL 209 % (60-150); SJOGREN'S ANTI SS-A <0.2 AI (0.0-0.9); SJOGREN'S ANTI SS-B <0.2 AI (0.0-0.9)
[2016-12-13] MEDS: WARFARIN SOD 5 MG TAB PO SCH (16:44)
[2016-12-13 17:05] VITALS: BP 151/85
[2016-12-13] MEDS: ALBUTEROL SULFATE 2.5 MG/0.5 ML INH NEB SOLN INH PRN (19:28)
[2016-12-13 22:00] VITALS: BP 105/68
[2016-12-14] MEDS: ALBUTEROL SULFATE 2.5 MG/0.5 ML INH NEB SOLN INH PRN ×3 (00:09→23:12)
[2016-12-14] MEDS: IPRATROPIUM 0.5MG/ALBUTEROL 2.5MG INH SOL UD 3ML (DUONEB)(J7620) NEB SCH (01:09)
[2016-12-14 06:00] VITALS: BP 122/60
[2016-12-14] MEDS: SLF 3 ML SYR IV SCH ×3 (06:00→22:00)
[2016-12-14 06:12] LABS: CALCIUM LEVEL 8.2 MG/DL (8.8-10.2); CREATININE FOR GFR 1.62 MG/DL (0.70-1.30); GLOMERULAR FILTRATION RATE 46.3 (>49); POTASSIUM SERUM 4.1 MEQ/L (3.5-5.1)
[2016-12-14 06:15] LABS: INR 1.94
[2016-12-14 06:22] LABS: MEAN CORPUSCULAR HEMOGLOBIN 31.4 pg (27.0-33.0); MEAN CORPUSCULAR HGB CONC 34.3 g/dl (32.0-36.5); MEAN CORPUSCULAR VOLUME 91.6 fl (80.0-96.0); RED CELL DISTRIBUTION WIDTH 13.8 % (11.5-14.5); WHITE BLOOD COUNT 11.2 K/mm3 (4.0-10.0)
[2016-12-14] MEDS: PANTOPRAZOLE 40MG TAB (PROTONIX) PO SCH (09:00)
[2016-12-14] MEDS: PRIMIDONE 50 MG TAB PO SCH ×2 (09:00→20:35)
[2016-12-14] MEDS: ASPIRIN 81 MG CHEW TABLET PO SCH (09:00)
[2016-12-14] MEDS: NYSTATIN 100,000 UNITS/GM TOPICAL PWD 15 GM TOP SCH ×2 (09:01→20:36)
[2016-12-14] MEDS: ENOXAPARIN 30 MG/0.3 ML SYR (J1650) SC SCH (09:01)
--- NOTE | 2016-12-14 12:08 | IPNPDOC ---
Subjective Date Seen The patient was seen on 12/14/16. Subjective Chief Complaint/HPI The patient is a 61-year-old male admitted with a reason for visit of Acute Renal Failure, Cva, Sepsis, Rhabdomyolysis. Events since last encounter Pt states he feels about the same. Denies SOB or cough. Denies CP or abd pain. Constitutional: Reports: Fever Pulmonary: Denies: Dyspnea Cardiovascular: Denies: Chest Pain Gastrointestinal: Denies: Abdominal Pain, Nausea, Vomiting Neurological: Reports: Weakness Objective Physical Examination General Exam: Positive: No Acute Distress ENT Exam: Positive: Atraumatic Neck Exam: Positive: Supple, Negative: JVD Chest Exam: Positive: Diminished, Wheezing Heart Exam: Positive: Rate Normal, Regular Rhythm Abdomen Exam: Positive: Normal bowel sounds, Soft, Negative: Tenderness Extremity Exam: Positive: Edema (L>R) Skin Exam: Positive: Other skin issue (heels with blisters) Neuro Exam: Positive: Normal Speech (Dysarthric speech), Strength at 5/5 X4 ext (paralysis of left arm and leg; right facial droop), Negative: Cranial Nerves 3-12 NL (tongue deviates left, right facial droop, gaze palsy, pupils dilated 4 mm) Assessment /Plan Problems (1) CVA (cerebral vascular accident) Status: Acute Problem Specific Plan: Consult Specialist, Monitor Clinically, Repeat Labs Problem Text: 12/14 - Pt is being anticoagulated with warfarin and lovenox until warfarin is therapeutic. INR trending up and is 1.94 today. Physical therapy working with pt and assessing rehab options, and they feel pt will be a placement. 12/13 - Pt is being anticoagulated with warfarin and lovenox until warfarin is therapeutic. INR trending up and is 1.87 today. Physical therapy working with pt and assessing rehab options, and they feel pt will be a placement. 12/12 - Pt is being anticoagulated with warfarin and lovenox until warfarin is therapeutic. INR trending up and is 1.6 today. Physical therapy working with pt and assessing rehab options. 12/08 -- spoke with Dr. Awad, who states that anticoagulation is a risk/ benefit judgment; he would be OK with initiation of anticoagulation tomorrow. He recommends continuing aspirin and beginning warfarin (which allows more time before patient is therapeutic) or stopping aspirin and beginning Lovenox and warfarin. 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 Neuro and neurosurgery were consulted at admission. Awaiting day 3 status post stroke to initiate Eliquis, to await confirmation that stroke does not become hemorrhagic. EEG done 12/06/2016. Follow-up CT 12/06/2016 shows no hemorrhagic conversion as of yet. IVC filter placed 12/06/[address] Solorio. Echo shows no significant valvular disease, slightly elevated central venous pressure, normal LV size and systolic function. - Follow-up EEG results - ALON with bubble; per neuro - hypercoag workup pending - repeat CT w/o to eval for hemorrhagic conversion 12/07/16, 12/08/2016, 2016 per neuro - these are been ordered -Pureed Diet with pudding thick (2) Sepsis Status: Acute Problem Specific Plan: Monitor Clinically, Repeat Labs Problem Text: 12/14 - Temp 100.6 this am and Tmax was 101.6 yesterday afternoon. WBC 11.2 (yesterday was 11.4). Vanco and Zosyn were d/c'ed on . Has had some wheezing. Will order CXR. 12/13 - Tmax 100.6 this am. Currently afebrile. WBC up slightly to 11.4. Vanco and Zosyn were d/c'ed on 12/09/16. 12/12 - Temp was up last night to 101.3. Currently afebrile. Vanco and Zosyn were d/c'ed on 12/09/16. 12/05 - WBC 16.9 (19 at admission). On Zosyn. (3) Rhabdomyolysis Status: Acute Problem Specific Plan: Monitor Clinically, Repeat Labs Problem Text: 12/14 - Creatinine is lower at 1.62. 12/13 - creatinine trending up today at 2.36. Continue to monitor. 12/12 - creatinine slightly up today at 1.78. Continue to monitor. 12/08 -- renal function progressively improving 12/05 - CK 3881 - 4407 - 2906. Getting IVF. (4) Acute renal failure Status: Acute Problem Specific Plan: Monitor Clinically, Repeat Labs Problem Text: 12/14 - Creatinine is lower at 1.62. 12/13 - creatinine trending up today at 2.36. Continue to monitor. 12/12 - creatinine slightly up today at 1.78. Continue to monitor. 12/08 -- renal function progressively improving 12/05 - Creatinine 3.77 (4.99 yesterday). Getting IVF. (5) Asthma Status: Chronic Problem Specific Plan: Monitor Clinically Problem Text: 12/14 - PRN nebs. Change nebs to scheduled. (6) HTN (hypertension) Status: Chronic Problem Specific Plan: Monitor Clinically Problem Text: OutPt HCTZ held. (7) Anxiety Status: Chronic Problem Specific Plan: Monitor Clinically Problem Text: Outpt Duloxetine and lorazepam currently held. (8) Hypernatremia Status: Acute Problem Text: - Na 143 12/13 - Na 148. 12/12 - Na 142. 12/08 -- worse this a.m., increased D5 1/2 NS rate and rechecked this afternoon, with improvement. If it does not continue to improve tomorrow, likely consider D5W. (9) Wheezing Status: Acute Problem Specific Plan: Monitor Clinically Problem Text: Still with fevers. Order CXR. Make nebs scheduled. Plan/VTE VTE Prophylaxis Ordered?: Yes Plan/Urinary Catheter Reason for insertion/continuin: Critical Pt monitoring VS, I&O, 24H, [facility] Vital Signs/I&O Vital Signs Date Time Temp Pulse Resp B/P Pulse Ox O2 Delivery O2 Flow Rate FiO2 12/14/16 09:00 Room Air 12/14/16 06:00 100.6 92 19 122/60 91 12/09/16 14:00 1.0 I&O- Last 24 Hours up to 6 AM 12/14/16 06:00 Intake Total 900 ml Output Total 1950 ml Balance -1050 ml Laboratory Data 24H LABS Laboratory Tests 2 12/14/16 05:31: Anion Gap 9, Blood Urea Nitrogen 22H, Creatinine 1.62H, Sodium Level 143, Potassium Level 4.1, Chloride Level 111H, Carbon Dioxide Level 23, Calcium Level 8.2L, Glomerular Filtration Rate 46.3L, Prothromb Time International Ratio 1.94, Prothrombin Time 22.2H CBC/BMP Laboratory Tests 12/14/16 05:31 Calcium Level 8.2 L, Red Blood Count 4.00 L, Mean Corpuscular Volume 91.6, Mean Corpuscular Hemoglobin 31.4, Mean Corpuscular Hemoglobin Concent 34.3, Red Cell Distribution Width 13.8 Microbiology Microbiology 12/04/16 Blood Culture - Final, Complete NO GROWTH AFTER 5 DAYS 12/04/16 Blood Culture - Final, Complete NO GROWTH AFTER 5 DAYS 12/04/16 Influenza Virus Type A Antigen - Final, Complete 12/04/16 Influenza Virus Type B Antigen - Final, Complete 12/04/16 Urine Culture - Final, Complete Oumar Nye Dec 14, 2016 12:08
[2016-12-14 14:00] VITALS: BP 144/78
--- NOTE | 2016-12-14 15:22 | IPN ---
DATE: 12/14/2016 DATE OF ADMISSION: 12/04/2016 [facility] FACILITY (SNF) SUMMARY PRINCIPAL DIAGNOSIS: Massive right hemispheric stroke. SECONDARY DIAGNOSES: 1. Acute renal failure. 2. Hypertension. 3. Hypernatremia. 4. Encephalopathy secondary to stroke sedating medications, EEG on 12/06/2016 showed nonspecific slowing. HISTORY: Lee Kirkpatrick was admitted with a large stroke. Details his history and physical as per admission. HOSPITALIZATION COURSE: The patient was admitted to an intensive care unit (ICU) bed. He had serial imaging that did not show any hemorrhagic evolution of the stroke. He had mass effect and midline shift from brain swelling, but never bled into it. He had dense left hemiparesis that did not improve while he was hospitalized. He was anticoagulated with warfarin and INR is 1.94 today, so he is now therapeutic. He had an echocardiogram that was unremarkable. He was not felt to benefit from transesophageal echo. Carotid ultrasound showed less than 50% stenosis bilaterally. MRA showed occlusion of the right middle cerebral artery at its origin. MRI of the brain showed right middle cerebral artery distribution and acute infarction. PHYSICAL EXAMINATION: Today, temperature is 100.6, blood pressure 122/60, pulse 92, respiratory rate 18, 91% oxygen saturation. GENERAL APPEARANCE: Morbidly obese, lying in bed. No distress. Left hemiparesis. LUNGS: Clear. HEART: Regular rhythm. ABDOMEN: Soft, obese. EXTREMITIES: Trace peripheral edema. LABORATORY DATA: White count is 11.2, hemoglobin 12.6, platelets 237. Sodium 143, potassium 4.1, BUN 22, creatinine 1.6, glucose 110. INR today is 1.94. CASH was positive with a positive double strand DNA. DISPOSITION: At this point, the patient is being put on SNF level of care. The plan is for short term rehabilitation. He is anticoagulated with warfarin. His renal function has returned to baseline. His hypernatremia resolved and he maintained sufficient oral intake to prevent recurrence of this. CASH was positive, but he does not have any signs of clinical lupus, but it needs to be followed as an outpatient. MEDICATIONS: - DuoNeb every 6 hours - aspirin 81 mg daily - Protonix 40 mg daily - warfarin 5 mg daily - Mysoline 50 mg twice a day for tremor - albuterol as needed - Tylenol as needed Activity as tolerated. Diet as tolerated.
--- NOTE | 2016-12-14 16:13 | REP ---
Chest one-view HISTORY: Fever Comparison: 12/04/2016 There is poor inspiratory effort. The lungs are clear. The heart is normal in size. The pulmonary vasculature is normal in appearance. Impression: No acute disease. Signed by Toni Jackson MD 12/14/2016 04:04 P
[2016-12-14] MEDS: ACETAMINOPHEN TAB 650MG DOSE (2X325MG) PO PRN ×3 (16:55→23:07)
[2016-12-14] MEDS: WARFARIN SOD 5 MG TAB PO SCH (16:55)
[2016-12-14 22:00] VITALS: BP 133/82
[2016-12-15] MEDS: IPRATROPIUM 0.5MG/ALBUTEROL 2.5MG INH SOL UD 3ML (DUONEB)(J7620) NEB SCH ×5 (01:09→19:37)
[2016-12-15 06:00] VITALS: BP 152/77
[2016-12-15] MEDS: SLF 3 ML SYR IV SCH ×3 (06:00→20:01)
[2016-12-15 07:00] LABS: INR 2.33
[2016-12-15 07:15] LABS: CALCIUM LEVEL 8.2 MG/DL (8.8-10.2); CREATININE FOR GFR 1.49 MG/DL (0.70-1.30); POTASSIUM SERUM 3.9 MEQ/L (3.5-5.1)
[2016-12-15 08:42] LABS: BASO % 0.4 % (0.0-1.0); EOS # 0.5 K/mm3 (0.0-0.50); EOS % 4.6 % (0.0-3.0); LARGE UNSTAINED CELL # 0.2 K/mm3 (0.0-0.4); LARGE UNSTAINED CELL % 1.6 % (0.0-4.0); LYMPH # 1.3 K/mm3 (1.5-4.5); LYMPH % 11.7 % (24.0-44.0); MEAN CORPUSCULAR HEMOGLOBIN 30.9 pg (27.0-33.0); MEAN CORPUSCULAR HGB CONC 33.6 g/dl (32.0-36.5); MEAN CORPUSCULAR VOLUME 91.9 fl (80.0-96.0); MONO # 0.7 K/mm3 (0.0-0.8); MONO % 6.2 % (0.0-5.0); NEUTROPHILS # 8.4 K/mm3 (1.8-7.7); NEUTROPHILS % 75.6 % (36.0-66.0); PLATELET COUNT, AUTOMATED 241 k/mm3 (150-450); WHITE BLOOD COUNT 11.2 K/mm3 (4.0-10.0)
[2016-12-15] MEDS: ASPIRIN 81 MG CHEW TABLET PO SCH (09:42)
[2016-12-15] MEDS: ACETAMINOPHEN TAB 650MG DOSE (2X325MG) PO PRN ×2 (09:42→20:01)
[2016-12-15] MEDS: NYSTATIN 100,000 UNITS/GM TOPICAL PWD 15 GM TOP SCH ×2 (09:43→20:01)
[2016-12-15] MEDS: PANTOPRAZOLE 40MG TAB (PROTONIX) PO SCH (09:43)
[2016-12-15] MEDS: PRIMIDONE 50 MG TAB PO SCH ×2 (09:43→20:01)
[2016-12-15] MEDS ORDERED: MIRALAX *UNIT DOSE* 17GM PACKET PO PRN (11:30)
--- NOTE | 2016-12-15 11:43 | IPNPDOC ---
Subjective Date Seen The patient was seen on 12/15/16. Subjective Chief Complaint/HPI The patient is a 61-year-old male admitted with a reason for visit of Acute Renal Failure, Cva, Sepsis, Rhabdomyolysis. Events since last encounter Pt denies any new issues. Denies CP, SOB, Abd pain. Currently Afebrile, but temp of 101.8 yesterday evening. Constitutional: Denies: Chills, Fever Pulmonary: Denies: Dyspnea Cardiovascular: Denies: Chest Pain Gastrointestinal: Denies: Abdominal Pain, Nausea, Vomiting Objective Physical Examination General Exam: Positive: No Acute Distress ENT Exam: Positive: Atraumatic Neck Exam: Positive: Supple, Negative: JVD Chest Exam: Positive: Diminished, Wheezing Heart Exam: Positive: Rate Normal, Regular Rhythm Abdomen Exam: Positive: Normal bowel sounds, Soft, Negative: Tenderness Extremity Exam: Positive: Edema (L>R) Skin Exam: Positive: Other skin issue (heels with blisters. Right posterior thigh with skin tear 4 cm. No d/c. ) Neuro Exam: Negative: Cranial Nerves 3-12 NL (tongue deviates left, right facial droop, gaze palsy, pupils dilated 4 mm), Normal Speech (Dysarthric speech ), Strength at 5/5 X4 ext (paralysis of left arm and leg; right facial droop) Assessment /Plan Problems (1) CVA (cerebral vascular accident) Status: Acute Problem Specific Plan: Consult Specialist, Monitor Clinically, Repeat Labs Problem Text: 12/15 - Pt anticoauglated with warfarin. INR 2.3. Lovenox was d/ c'ed yesterday. PT working with pt. 12/14 - Pt is being anticoagulated with warfarin and lovenox until warfarin is therapeutic. INR trending up and is 1.94 today. Physical therapy working with pt and assessing rehab options, and they feel pt will be a placement. 12/13 - Pt is being anticoagulated with warfarin and lovenox until warfarin is therapeutic. INR trending up and is 1.87 today. Physical therapy working with pt and assessing rehab options, and they feel pt will be a placement. 12/12 - Pt is being anticoagulated with warfarin and lovenox until warfarin is therapeutic. INR trending up and is 1.6 today. Physical therapy working with pt and assessing rehab options. 12/08 -- spoke with Dr. Ritesh, who states that anticoagulation is a risk/ benefit judgment; he would be OK with initiation of anticoagulation tomorrow. He recommends continuing aspirin and beginning warfarin (which allows more time before patient is therapeutic) or stopping aspirin and beginning Lovenox and warfarin. 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 Neuro and neurosurgery were consulted at admission. Awaiting day 3 status post stroke to initiate Eliquis, to await confirmation that stroke does not become hemorrhagic. EEG done 12/06/2016. Follow-up CT 12/06/2016 shows no hemorrhagic conversion as of yet. IVC filter placed 12/06/[address] Solorio. Echo shows no significant valvular disease, slightly elevated central venous pressure, normal LV size and systolic function. - Follow-up EEG results - ALON with bubble; per neuro - hypercoag workup pending - repeat CT w/o to eval for hemorrhagic conversion 12/07/16, 12/08/2016, 2016 per neuro - these are been ordered -Pureed Diet with pudding thick (2) Sepsis Status: Acute Problem Specific Plan: Monitor Clinically, Repeat Labs Problem Text: 12/15 - Currently afebrile but temp was elevated to 101.8 yesterday evening. WBC stable at 11.2. Urine cx pending. CXR yesterday negative. Pt with skin tear right posterior thigh. Will cx. Will consult wound care team. 12/14 - Temp 100.6 this am and Tmax was 101.6 yesterday afternoon. WBC 11.2 ( yesterday was 11.4). Vanco and Zosyn were d/c'ed on 12/09/16. Has had some wheezing. Will order CXR. 12/13 - Tmax 100.6 this am. Currently afebrile. WBC up slightly to 11.4. Vanco and Zosyn were d/c'ed on 12/09/16. 12/12 - Temp was up last night to 101.3. Currently afebrile. Vanco and Zosyn were d/c'ed on 12/09/16. 12/05 - WBC 16.9 (19 at admission). On Zosyn. (3) Rhabdomyolysis Status: Acute Problem Specific Plan: Monitor Clinically, Repeat Labs Problem Text: 12/15 - Creatinine is lower at 1.49. 12/14 - Creatinine is lower at 1.62. 12/13 - creatinine trending up today at 2.36. Continue to monitor. 12/12 - creatinine slightly up today at 1.78. Continue to monitor. 12/08 -- renal function progressively improving 12/05 - CK 3881 - 4408 - 2906. Getting IVF. (4) Acute renal failure Status: Acute Problem Specific Plan: Monitor Clinically, Repeat Labs Problem Text: 12/15 - Creatinine is lower at 1.49. 12/14 - Creatinine is lower at 1.62. 12/13 - creatinine trending up today at 2.36. Continue to monitor. 12/12 - creatinine slightly up today at 1.78. Continue to monitor. 12/08 -- renal function progressively improving 12/05 - Creatinine 3.77 (4.99 yesterday). Getting IVF. (5) Asthma Status: Chronic Problem Specific Plan: Monitor Clinically Problem Text: 12/14 - PRN nebs. Change nebs to scheduled. (6) HTN (hypertension) Status: Chronic Problem Specific Plan: Monitor Clinically Problem Text: OutPt HCTZ held. (7) Anxiety Status: Chronic Problem Specific Plan: Monitor Clinically Problem Text: Outpt Duloxetine and lorazepam currently held. (8) Hypernatremia Status: Acute Problem Text: 12/15 - Na 144 12/14 - Na 143 12/13 - Na 148. 12/12 - Na 142. 12/08 -- worse this a.m., increased D5 1/2 NS rate and rechecked this afternoon, with improvement. If it does not continue to improve tomorrow, likely consider D5W. (9) Wheezing Status: Acute Problem Specific Plan: Monitor Clinically Problem Text: 12/15 - CXR negative 12/14 - Still with fevers. Order CXR. Make nebs scheduled. (10) Skin tear Status: Acute Problem Specific Plan: Monitor Clinically, Repeat Labs Problem Text: Pt with skin tear right posterior thigh. Will cx. Will consult wound care team. Plan/VTE VTE Prophylaxis Ordered?: Yes Plan/Urinary Catheter Reason for insertion/continuin: Critical Pt monitoring VS, I&O, 24H, Fishbone Vital Signs/I&O Vital Signs Date Time Temp Pulse Resp B/P Pulse Ox O2 Delivery O2 Flow Rate FiO2 12/15/16 09:00 Room Air 12/15/16 06:00 98.2 88 19 152/77 93 12/09/16 14:00 1.0 I&O- Last 24 Hours up to 6 AM 12/15/16 06:00 Intake Total 1260 ml Output Total 450 ml Balance 810 ml Laboratory Data 24H LABS Laboratory Tests 2 12/14/16 18:26: Urine Amorphous Sediment , Urine Appearance CLOUDYH, Urine Color YELLOW, Urine pH 5.0, Urine Specific [place] 1.019, Urine Protein 1+H, Urine Glucose (UA) NEGATIVE, Urine Ketones NEGATIVE, Urine Urobilinogen 2.0H, Urine Bilirubin NEGATIVE, Urine Leukocyte Esterase NEGATIVE, Urine Bacteria (Auto) 1+H, Urine Blood 1+H, Urine Calcium Carbonate Cryst(Auto) , Urine Calcium Oxalate Cryst ( Auto) , Urine Calcium Phosphate Geraldine (Auto) , Urine Cellular Casts , Urine Cystine Crystals , Urine Granular Casts (Auto) , Urine Hyaline Casts (Auto) 0, Urine Leucine Crystals , Urine Mucus (Auto) SMALL, Urine Nitrite NEGATIVE, Urine Oval Fat Bodies (Auto) , Urine RBC (Auto) 41H, Urine Renal Epithelial Cells , Urine Sperm (Auto) , Urine Squamous Epithelial Cells 0, Urine Transitional Epithelial Cells , Urine Trichomonas (Auto) , Urine Triple Phosphate Cryst (Auto) , Urine Tyrosine Crystals , Urine Uric Acid Crystals ( Auto) , Urine WBC (Auto) 4H, Urine Waxy Casts (Auto) , Urine Yeast-Like Cells ( Auto) 12/15/16 06:13: Anion Gap 10, White Blood Count 11.2H, Red Blood Count 4.30, Hemoglobin 13.3L, Hematocrit 39.5L, Mean Corpuscular Volume 91.9, Mean Corpuscular Hemoglobin 30.9 , Mean Corpuscular Hemoglobin Concent 33.6, Red Cell Distribution Width 14.0, Platelet Count 241, Neutrophils (%) (Auto) 75.6H, Lymphocytes (%) (Auto) 11.7L, Monocytes (%) (Auto) 6.2H, Eosinophils (%) (Auto) 4.6H, Basophils (%) (Auto) 0.4 , Neutrophils # (Auto) 8.4H, Lymphocytes # (Auto) 1.3L, Monocytes # (Auto) 0.7, Eosinophils # (Auto) 0.5, Basophils # (Auto) 0.0, Blood Urea Nitrogen 24H, Creatinine 1.49H, Sodium Level 144, Potassium Level 3.9, Chloride Level 109H, Carbon Dioxide Level 25, Calcium Level 8.2L, Glomerular Filtration Rate 51.0, Large Unclassified Cells # 0.2, Large Unclassified Cells % 1.6, Prothromb Time International Ratio 2.33, Prothrombin Time 25.6H CBC/BMP Laboratory Tests 12/15/16 06:13 Calcium Level 8.2 L, Red Blood Count 4.30, Mean Corpuscular Volume 91.9, Mean Corpuscular Hemoglobin 30.9, Mean Corpuscular Hemoglobin Concent 33.6, Red Cell Distribution Width 14.0, Neutrophils (%) (Auto) 75.6 H, Lymphocytes (%) (Auto) 11.7 L, Monocytes (%) (Auto) 6.2 H, Eosinophils (%) (Auto) 4.6 H, Basophils (%) (Auto) 0.4, Neutrophils # (Auto) 8.4 H, Lymphocytes # (Auto) 1.3 L, Monocytes # (Auto) 0.7, Eosinophils # (Auto) 0.5, Basophils # (Auto) 0.0 Microbiology Microbiology 12/14/16 Urine Culture, Received Pending Oumar Nye Dec 15, 2016 11:43
[2016-12-15 14:00] VITALS: BP 137/73
[2016-12-15] MEDS: WARFARIN SOD 5 MG TAB PO SCH (17:45)
[2016-12-15 20:20] VITALS: BP 159/87
[2016-12-16] MEDS: ACETAMINOPHEN TAB 650MG DOSE (2X325MG) PO PRN ×2 (02:46→20:39)
[2016-12-16] MEDS: SLF 3 ML SYR IV SCH ×3 (05:01→20:40)
[2016-12-16 05:53] LABS: MEAN CORPUSCULAR HEMOGLOBIN 30.7 pg (27.0-33.0); MEAN CORPUSCULAR HGB CONC 33.7 g/dl (32.0-36.5); MEAN CORPUSCULAR VOLUME 91.1 fl (80.0-96.0); RED CELL DISTRIBUTION WIDTH 14.1 % (11.5-14.5); WHITE BLOOD COUNT 13.9 K/mm3 (4.0-10.0)
[2016-12-16 06:00] LABS: INR 2.41
[2016-12-16 06:04] LABS: CREATININE FOR GFR 1.59 MG/DL (0.70-1.30); GLOMERULAR FILTRATION RATE 47.4 (>49); POTASSIUM SERUM 3.9 MEQ/L (3.5-5.1)
[2016-12-16] MEDS: IPRATROPIUM 0.5MG/ALBUTEROL 2.5MG INH SOL UD 3ML (DUONEB)(J7620) NEB SCH ×3 (07:15→19:20)
[2016-12-16] MEDS: NYSTATIN 100,000 UNITS/GM TOPICAL PWD 15 GM TOP SCH ×2 (10:40→20:40)
[2016-12-16] MEDS: ASPIRIN 81 MG CHEW TABLET PO SCH (10:40)
[2016-12-16] MEDS: PRIMIDONE 50 MG TAB PO SCH ×2 (10:41→20:39)
[2016-12-16] MEDS: PANTOPRAZOLE 40MG TAB (PROTONIX) PO SCH (10:41)
[2016-12-16 12:06] VITALS: BP 133/91
[2016-12-16] MEDS: WARFARIN SOD 5 MG TAB PO SCH (17:26)
[2016-12-16 22:00] VITALS: BP 126/96
[2016-12-17] MEDS: IPRATROPIUM 0.5MG/ALBUTEROL 2.5MG INH SOL UD 3ML (DUONEB)(J7620) NEB SCH ×4 (02:29→19:25)
[2016-12-17] MEDS: SLF 3 ML SYR IV SCH ×3 (05:29→20:04)
[2016-12-17 06:00] VITALS: BP 143/91
[2016-12-17] MEDS: ACETAMINOPHEN TAB 650MG DOSE (2X325MG) PO PRN (06:21)
[2016-12-17 06:25] LABS: MEAN CORPUSCULAR HEMOGLOBIN 31.2 pg (27.0-33.0); RED CELL DISTRIBUTION WIDTH 13.7 % (11.5-14.5); WHITE BLOOD COUNT 13.1 K/mm3 (4.0-10.0)
[2016-12-17 06:37] LABS: CALCIUM LEVEL 8.5 MG/DL (8.8-10.2); CREATININE FOR GFR 2.35 MG/DL (0.70-1.30); GLOMERULAR FILTRATION RATE 30.2 (>49)
[2016-12-17] MEDS: PRIMIDONE 50 MG TAB PO SCH ×2 (08:19→20:03)
[2016-12-17] MEDS: ASPIRIN 81 MG CHEW TABLET PO SCH (08:19)
[2016-12-17] MEDS: PANTOPRAZOLE 40MG TAB (PROTONIX) PO SCH (08:19)
[2016-12-17] MEDS: NYSTATIN 100,000 UNITS/GM TOPICAL PWD 15 GM TOP SCH (08:20)
--- NOTE | 2016-12-17 09:36 | IPNPDOC ---
Subjective Date Seen The patient was seen on 12/17/16. Subjective Chief Complaint/HPI The patient is a 61-year-old male admitted with a reason for visit of Acute Renal Failure, Cva, Sepsis, Rhabdomyolysis. Constitutional: Reports: Fever, Night Sweats, Denies: Chills ENT: Denies: Head Aches Skin: Reports: Breakdown (buttock and right posterior thigh) Pulmonary: Denies: Cough, Dyspnea Cardiovascular: Denies: Chest Pain Gastrointestinal: Denies: Abdominal Pain, Nausea, Vomiting Genitourinary: Reports: Hematuria Musculoskeletal: Reports: Foot Pain (right foot pain) Objective Physical Examination General Exam: Positive: No Acute Distress ENT Exam: Positive: Atraumatic Neck Exam: Positive: Supple, Negative: JVD Chest Exam: Positive: Clear to auscultation, Diminished, Negative: Rales, Rhonchi, Wheezing Heart Exam: Positive: Rate Normal, Regular Rhythm Abdomen Exam: Positive: Normal bowel sounds, Soft, Negative: Tenderness Extremity Exam: Positive: Edema (trace ankle edema) Skin Exam: Positive: Breakdown (superficial skin breakdown on bilateral buttocks, R moreso than left with erythema and satellite lesions; ulcer to right posterior thigh that is clean and dry with mild surrounding induration and no erythema) Neuro Exam: Negative: Cranial Nerves 3-12 NL (tongue deviates left, right facial droop, gaze palsy), Normal Speech (Dysarthric speech), Strength at 5/5 X4 ext (paralysis of left arm and leg; right facial droop) Psych Exam: Positive: Mental status NL, Mood NL Assessment /Plan Problems (1) CVA (cerebral vascular accident) Status: Acute Problem Specific Plan: Consult Specialist, Monitor Clinically, Repeat Labs Problem Text: 12/17/16 - Patient therapeutic on warfarin yesterday; will recheck PT/INR today given hematuria. Continue PT. 12/15 - Pt anticoauglated with warfarin. INR 2.3. Lovenox was d/c'ed yesterday. PT working with pt. 12/14 - Pt is being anticoagulated with warfarin and lovenox until warfarin is therapeutic. INR trending up and is 1.94 today. Physical therapy working with pt and assessing rehab options, and they feel pt will be a placement. 12/13 - Pt is being anticoagulated with warfarin and lovenox until warfarin is therapeutic. INR trending up and is 1.87 today. Physical therapy working with pt and assessing rehab options, and they feel pt will be a placement. 12/12 - Pt is being anticoagulated with warfarin and lovenox until warfarin is therapeutic. INR trending up and is 1.6 today. Physical therapy working with pt and assessing rehab options. 12/08 -- spoke with Dr. Awad, who states that anticoagulation is a risk/ benefit judgment; he would be OK with initiation of anticoagulation tomorrow. He recommends continuing aspirin and beginning warfarin (which allows more time before patient is therapeutic) or stopping aspirin and beginning Lovenox and warfarin. 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 Neuro and neurosurgery were consulted at admission. Awaiting day 3 status post stroke to initiate Eliquis, to await confirmation that stroke does not become hemorrhagic. EEG done 12/06/2016. Follow-up CT 12/06/2016 shows no hemorrhagic conversion as of yet. IVC filter placed 12/06/[address] Solorio. Echo shows no significant valvular disease, slightly elevated central venous pressure, normal LV size and systolic function. - Follow-up EEG results - ALON with bubble; per neuro - hypercoag workup pending - repeat CT w/o to eval for hemorrhagic conversion 12/07/16, 12/08/2016, 2016 per neuro - these are been ordered -Pureed Diet with pudding thick (2) Fever Status: Acute Problem Text: Patient has had intermittent fevers for the past 5 days. No obvious source of infection - urine culture from 12/14 was negative; CXR done was also negative. Patient becomes mildly tachycardic when febrile which is expected. BP has been stable WBCs are actually a bit lower today as compared to yesterday. I suspect central fever due to CVA, however as he has not had any recent blood cultures checked will recheck today. (3) Hematuria Status: Acute Problem Text: Noted in deluca bag this morning; no clots seen. H/H improved from yesterday. Will cautiously continue warfarin for now and monitor H/H and PT/INR daily. (4) Skin tear Status: Acute Problem Specific Plan: Monitor Clinically, Repeat Labs Problem Text: Pt with skin breakdown to right posterior thigh, along with some skin breakdown on buttocks. Culture of right thigh positive for E. Coli but it does not appear acutely infected. Will consult wound care team. Nystatin cream started to buttocks for possible candidiasis based on exam. (5) Sepsis Status: Acute Problem Specific Plan: Monitor Clinically, Repeat Labs Problem Text: 12/17 - Patient was initially thought to be septic but antibiotics were discontinued on 12/09 with no obvious source of sepsis. I think that sepsis is unlikely as fevers have been intermittent for past 5 days but patient has otherwise been stable and does not appear acutely ill. Recheck blood cultures today. Patient has some skin breakdown but I do not see any signs of cellulitis. 12/15 - Currently afebrile but temp was elevated to 101.8 yesterday evening. WBC stable at 11.2. Urine cx pending. CXR yesterday negative. Pt with skin tear right posterior thigh. Will cx. Will consult wound care team. 12/14 - Temp 100.6 this am and Tmax was 101.6 yesterday afternoon. WBC 11.2 ( yesterday was 11.4). Vanco and Zosyn were d/c'ed on 12/09/16. Has had some wheezing. Will order CXR. 12/13 - Tmax 100.6 this am. Currently afebrile. WBC up slightly to 11.4. Vanco and Zosyn were d/c'ed on 12/09/16. 12/12 - Temp was up last night to 101.3. Currently afebrile. Vanco and Zosyn were d/c'ed on 12/09/16. 12/05 - WBC 16.9 (19 at admission). On Zosyn. (6) Acute renal failure Status: Acute Problem Specific Plan: Monitor Clinically, Repeat Labs Problem Text: 12/17/ - Cr has increased today to 2.35 - this occurred earlier in the week as well and patient was encouraged to increase PO hydration and Cr resolved without IVF intervention - I again encouraged PO hydration and will recheck BMP tomorrow. 12/15 - Creatinine is lower at 1.49. 12/14 - Creatinine is lower at 1.62. 12/13 - creatinine trending up today at 2.36. Continue to monitor. 12/12 - creatinine slightly up today at 1.78. Continue to monitor. 12/08 -- renal function progressively improving 12/05 - Creatinine 3.77 (4.99 yesterday). Getting IVF. (7) Asthma Status: Chronic Problem Specific Plan: Monitor Clinically Problem Text: Continue scheduled nebs. Lungs are clear today but patient is limited in ability to take deep breaths due to immobility from recent stroke. (8) HTN (hypertension) Status: Chronic Problem Specific Plan: Monitor Clinically Problem Text: OutPt HCTZ held. (9) Anxiety Status: Chronic Problem Specific Plan: Monitor Clinically Problem Text: Outpt Duloxetine and lorazepam currently held. (10) Hypernatremia Status: Resolved Problem Text: 12/15 - Na 144 12/14 - Na 143 12/13 - Na 148. 12/12 - Na 142. 12/08 -- worse this a.m., increased D5 1/2 NS rate and rechecked this afternoon, with improvement. If it does not continue to improve tomorrow, likely consider D5W. Plan/VTE VTE Prophylaxis Ordered?: Yes Plan/Urinary Catheter Reason for insertion/continuin: Critical Pt monitoring VS, I&O, 24H, [facility] Vital Signs/I&O Vital Signs Date Time Temp Pulse Resp B/P Pulse Ox O2 Delivery O2 Flow Rate FiO2 12/17/16 06:00 100.6 104 26 143/91 92 Room Air I&O- Last 24 Hours up to 6 AM 12/17/16 06:00 Intake Total 2040 ml Output Total 925 ml Balance 1115 ml Laboratory Data 24H LABS Laboratory Tests 2 12/17/16 05:39: Anion Gap 6L, Blood Urea Nitrogen 32H, Creatinine 2.35H, Sodium Level 142, Potassium Level 4.0, Chloride Level 107, Carbon Dioxide Level 29, Calcium Level 8.5L, Glomerular Filtration Rate 30.2L CBC/BMP Laboratory Tests 12/17/16 05:39 Calcium Level 8.5 L, Red Blood Count 4.15 L, Mean Corpuscular Volume 92.0, Mean Corpuscular Hemoglobin 31.2, Mean Corpuscular Hemoglobin Concent 34.0, Red Cell Distribution Width 13.7 Microbiology Microbiology 12/14/16 Urine Culture - Final, Complete 12/15/16 Wound Culture - Preliminary, Resulted Escherichia Coli CECY FRYE MD Dec 17, 2016 09:29
[2016-12-17 10:00] VITALS: BP 102/61
[2016-12-17 10:43] LABS: INR 2.27
[2016-12-17 10:47] VITALS: BP 102/61
[2016-12-17 11:25] LABS: ABG HCO3 24.9 MEQ/L (22.0-26.0); ABG PARTIAL PRESSURE CO2 37.4 mmHg (35.0-45.0); ABG PARTIAL PRESSURE O2 78.7 mmHg (75.0-100.0); ABG STANDARD HCO3 25.3 MEQ/L (22.0-26.0); ABG TOTAL CO2 26.1 MEQ/L (23.0-31.0); ABG pH (ARTERIAL) 7.442 UNITS (7.350-7.450)
[2016-12-17 12:00] VITALS: BP 115/65
[2016-12-17] MEDS: SANTYL OINT 30GM TOP SCH (13:44)
[2016-12-17] MEDS: WARFARIN SOD 5 MG TAB PO SCH (16:02)
[2016-12-17] MEDS: NYSTATIN CREAM 15 GM TOP SCH (20:03)
[2016-12-18] MEDS: IPRATROPIUM 0.5MG/ALBUTEROL 2.5MG INH SOL UD 3ML (DUONEB)(J7620) NEB SCH ×4 (02:00→20:00)
[2016-12-18] MEDS: SLF 3 ML SYR IV SCH ×2 (04:58→14:00)
[2016-12-18 05:40] VITALS: BP 119/66
[2016-12-18 05:57] LABS: INR 2.41; MEAN CORPUSCULAR HEMOGLOBIN 30.6 pg (27.0-33.0); MEAN CORPUSCULAR HGB CONC 32.6 g/dl (32.0-36.5); MEAN CORPUSCULAR VOLUME 93.7 fl (80.0-96.0); WHITE BLOOD COUNT 10.7 K/mm3 (4.0-10.0)
[2016-12-18 06:20] LABS: CALCIUM LEVEL 7.9 MG/DL (8.8-10.2); CREATININE FOR GFR 1.88 MG/DL (0.70-1.30); POTASSIUM SERUM 3.7 MEQ/L (3.5-5.1)
[2016-12-18] MEDS: PRIMIDONE 50 MG TAB PO SCH ×2 (08:54→20:00)
[2016-12-18] MEDS: NYSTATIN CREAM 15 GM TOP SCH ×2 (08:54→20:01)
[2016-12-18] MEDS: ASPIRIN 81 MG CHEW TABLET PO SCH (08:54)
[2016-12-18] MEDS: PANTOPRAZOLE 40MG TAB (PROTONIX) PO SCH (08:54)
[2016-12-18] MEDS: SANTYL OINT 30GM TOP SCH (08:55)
--- NOTE | 2016-12-18 10:16 | IPNPDOC ---
Subjective Date Seen The patient was seen on 12/18/16. Subjective Chief Complaint/HPI The patient is a 61-year-old male admitted with a reason for visit of Acute Renal Failure, Cva, Sepsis, Rhabdomyolysis. Constitutional: Denies: Chills, Fever Pulmonary: Reports: Dyspnea (mild), Denies: Cough Cardiovascular: Denies: Chest Pain, Palpitations Gastrointestinal: Denies: Abdominal Pain, Nausea, Vomiting Neurological: Reports: Weakness (left arm and leg since CVA), Denies: Confusion Objective Physical Examination General Exam: Positive: No Acute Distress ENT Exam: Positive: Atraumatic Neck Exam: Positive: Supple, Negative: JVD Chest Exam: Positive: Clear to auscultation, Diminished (in bases; some upper airway noises), Negative: Rales, Rhonchi, Wheezing Heart Exam: Positive: Rate Normal, Regular Rhythm Abdomen Exam: Positive: Normal bowel sounds, Soft, Negative: Tenderness Extremity Exam: Positive: Edema (trace ankle edema) Neuro Exam: Negative: Cranial Nerves 3-12 NL (tongue deviates left, right facial droop, gaze palsy), Normal Speech (Dysarthric speech), Strength at 5/5 X4 ext (paralysis of left arm and leg; right facial droop) Psych Exam: Positive: Mental status NL, Mood NL Other physical findings Urine in deluca bag is branding machine tender red-orange color today as compared to yesterday Assessment /Plan Problems (1) Hypoxia Status: Acute Problem Text: Patient has had a new oxygen requirement and has been on 2L O2 via [place] since yesterday - will recheck CXR. (2) CVA (cerebral vascular accident) Status: Acute Problem Specific Plan: Consult Specialist, Monitor Clinically, Repeat Labs Problem Text: 12/18/16 - PT/INR remains therapeutic. Continue PT. 12/17/16 - Patient therapeutic on warfarin yesterday; will recheck PT/INR today given hematuria. Continue PT. 12/15 - Pt anticoauglated with warfarin. INR 2.3. Lovenox was d/c'ed yesterday. PT working with pt. 12/14 - Pt is being anticoagulated with warfarin and lovenox until warfarin is therapeutic. INR trending up and is 1.94 today. Physical therapy working with pt and assessing rehab options, and they feel pt will be a placement. 12/13 - Pt is being anticoagulated with warfarin and lovenox until warfarin is therapeutic. INR trending up and is 1.87 today. Physical therapy working with pt and assessing rehab options, and they feel pt will be a placement. 12/12 - Pt is being anticoagulated with warfarin and lovenox until warfarin is therapeutic. INR trending up and is 1.6 today. Physical therapy working with pt and assessing rehab options. 12/08 -- spoke with Dr. Awad, who states that anticoagulation is a risk/ benefit judgment; he would be OK with initiation of anticoagulation tomorrow. He recommends continuing aspirin and beginning warfarin (which allows more time before patient is therapeutic) or stopping aspirin and beginning Lovenox and warfarin. 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 Neuro and neurosurgery were consulted at admission. Awaiting day 3 status post stroke to initiate Eliquis, to await confirmation that stroke does not become hemorrhagic. EEG done 12/06/2016. Follow-up CT 12/06/2016 shows no hemorrhagic conversion as of yet. IVC filter placed 12/06/[address] Solorio. Echo shows no significant valvular disease, slightly elevated central venous pressure, normal LV size and systolic function. - Follow-up EEG results - ALON with bubble; per neuro - hypercoag workup pending - repeat CT w/o to eval for hemorrhagic conversion 12/07/16, 12/08/2016, 2016 per neuro - these are been ordered -Pureed Diet with pudding thick (3) Fever Status: Acute Problem Text: 12/18 - No fevers in last 24 hours; will continue to monitor. 12/17 - Patient has had intermittent fevers for the past 5 days. No obvious source of infection - urine culture from 12/14 was negative; CXR done 12/14 was also negative. Patient becomes mildly tachycardic when febrile which is expected. BP has been stable WBCs are actually a bit lower today as compared to yesterday. I suspect central fever due to CVA, however as he has not had any recent blood cultures checked will recheck today. (4) Hematuria Status: Acute Problem Text: 12/18 - Urine appears more clear today; H/H down today but consistent with previous studies. Will continue to monitor. 12/17 - Noted in deluca bag this morning; no clots seen. H/H improved from yesterday. Will cautiously continue warfarin for now and monitor H/H and PT/ INR daily. (5) Skin tear Status: Acute Problem Specific Plan: Monitor Clinically, Repeat Labs Problem Text: 12/18 - Continue wound care per PT recommendations 12/17 - Pt with skin breakdown to right posterior thigh, along with some skin breakdown on buttocks. Culture of right thigh positive for E. Coli but it does not appear acutely infected. Will consult wound care team. Nystatin cream started to buttocks for possible candidiasis based on exam. (6) Sepsis Status: Acute Problem Specific Plan: Monitor Clinically, Repeat Labs Problem Text: 12/17 - Patient was initially thought to be septic but antibiotics were discontinued on 12/09 with no obvious source of sepsis. I think that sepsis is unlikely as fevers have been intermittent for past 5 days but patient has otherwise been stable and does not appear acutely ill. Recheck blood cultures today. Patient has some skin breakdown but I do not see any signs of cellulitis. 12/15 - Currently afebrile but temp was elevated to 101.8 yesterday evening. WBC stable at 11.2. Urine cx pending. CXR yesterday negative. Pt with skin tear right posterior thigh. Will cx. Will consult wound care team. 12/14 - Temp 100.6 this am and Tmax was 101.6 yesterday afternoon. WBC 11.2 ( yesterday was 11.4). Vanco and Zosyn were d/c'ed on 12/09/16. Has had some wheezing. Will order CXR. 12/13 - Tmax 100.6 this am. Currently afebrile. WBC up slightly to 11.4. Vanco and Zosyn were d/c'ed on 12/09/16. 12/12 - Temp was up last night to 101.3. Currently afebrile. Vanco and Zosyn were d/c'ed on 12/09/16. 12/05 - WBC 16.9 (19 at admission). On Zosyn. (7) Acute renal failure Status: Acute Problem Specific Plan: Monitor Clinically, Repeat Labs Problem Text: 12/18 - Cr improved today to 1.88 without intervention. 12/17 - Cr has increased today to 2.35 - this occurred earlier in the week as well and patient was encouraged to increase PO hydration and Cr resolved without IVF intervention - I again encouraged PO hydration and will recheck BMP tomorrow. 12/15 - Creatinine is lower at 1.49. 12/14 - Creatinine is lower at 1.62. 12/13 - creatinine trending up today at 2.36. Continue to monitor. 12/12 - creatinine slightly up today at 1.78. Continue to monitor. 12/08 -- renal function progressively improving 12/05 - Creatinine 3.77 (4.99 yesterday). Getting IVF. (8) Asthma Status: Chronic Problem Specific Plan: Monitor Clinically Problem Text: Continue scheduled nebs. Lungs are clear today but patient is limited in ability to take deep breaths due to immobility from recent stroke. (9) HTN (hypertension) Status: Chronic Problem Specific Plan: Monitor Clinically Problem Text: OutPt HCTZ held. (10) Anxiety Status: Chronic Problem Specific Plan: Monitor Clinically Problem Text: Outpt Duloxetine and lorazepam currently held. (11) Hypernatremia Status: Resolved Problem Text: 12/15 - Na 144 12/14 - Na 143 12/13 - Na 148. 12/12 - Na 142. 12/08 -- worse this a.m., increased D5 1/2 NS rate and rechecked this afternoon, with improvement. If it does not continue to improve tomorrow, likely consider D5W. Plan/VTE VTE Prophylaxis Ordered?: Yes Plan/Urinary Catheter Reason for insertion/continuin: Critical Pt monitoring VS, I&O, 24H, Fishbone Vital Signs/I&O Vital Signs Date Time Temp Pulse Resp B/P Pulse Ox O2 Delivery O2 Flow Rate FiO2 12/18/16 05:40 99.2 97 26 119/66 93 Nasal Cannula 2.0 I&O- Last 24 Hours up to 6 AM 12/18/16 06:00 Intake Total 960 ml Output Total 1050 ml Balance -90 ml Laboratory Data 24H LABS Laboratory Tests 2 12/17/16 10:16: Prothromb Time International Ratio 2.27, Prothrombin Time 25.1H 12/17/16 11:12: Arterial Blood pH 7.442, Arterial Blood Partial Pressure CO2 37.4, Arterial Blood Partial Pressure O2 78.7, Arterial Blood Total CO2 26.1, Arterial Blood HCO3 24.9, Arterial Blood Base Excess 1.0, Arterial Blood Oxygen Saturation 96.1 , Blood Gas Bicarbonate Standard 25.3 12/18/16 05:06: Prothromb Time International Ratio 2.41, Prothrombin Time 26.3H, Anion Gap 8, Blood Urea Nitrogen 31H, Creatinine 1.88H, Sodium Level 142, Potassium Level 3.7 , Chloride Level 109H, Carbon Dioxide Level 25, Calcium Level 7.9L, Glomerular Filtration Rate 39.0L CBC/BMP Laboratory Tests 12/18/16 05:06 Calcium Level 7.9 L, Red Blood Count 3.47 L, Mean Corpuscular Volume 93.7, Mean Corpuscular Hemoglobin 30.6, Mean Corpuscular Hemoglobin Concent 32.6, Red Cell Distribution Width 14.0 Microbiology Microbiology 12/17/16 Blood Culture, Received Pending 12/17/16 Blood Culture, Received Pending 12/14/16 Urine Culture - Final, Complete 12/15/16 Wound Culture - Preliminary, Resulted Escherichia Coli Staphylococcus Sp Coag Neg CECY FRYE MD Dec 18, 2016 10:16
--- NOTE | 2016-12-18 11:23 | REP ---
Clinical: Hypoxia. Comparison: 12/14/2016. Findings: Examination is significantly limited by portable technique, underpenetration and poor inspiratory effort. Mediastinum and cardiac silhouette stable. Visualized lung ochoa are well-aerated and relatively clear although subtle left basilar atelectasis cannot definitively be excluded. No obvious effusion. No pneumothorax. Skeletal structures intact. Impression: Limited examination relatively clear. However subtle left basilar atelectasis/opacity cannot be excluded. Signed by Edin Floyd MD 12/18/2016 11:14 A
[2016-12-18] MEDS: WARFARIN SOD 5 MG TAB PO SCH (18:22)
[2016-12-19] MEDS: IPRATROPIUM 0.5MG/ALBUTEROL 2.5MG INH SOL UD 3ML (DUONEB)(J7620) NEB SCH ×5 (01:26→20:55)
[2016-12-19 06:00] VITALS: BP 122/70
[2016-12-19 06:06] LABS: MEAN CORPUSCULAR HEMOGLOBIN 30.3 pg (27.0-33.0); MEAN CORPUSCULAR HGB CONC 32.5 g/dl (32.0-36.5); MEAN CORPUSCULAR VOLUME 93.4 fl (80.0-96.0); RED CELL DISTRIBUTION WIDTH 13.9 % (11.5-14.5)
[2016-12-19 06:31] LABS: CALCIUM LEVEL 8.1 MG/DL (8.8-10.2); CREATININE FOR GFR 1.45 MG/DL (0.70-1.30); GLOMERULAR FILTRATION RATE 52.7 (>49); POTASSIUM SERUM 3.8 MEQ/L (3.5-5.1)
[2016-12-19] MEDS: ASPIRIN 81 MG CHEW TABLET PO SCH (09:20)
[2016-12-19] MEDS: PANTOPRAZOLE 40MG TAB (PROTONIX) PO SCH (09:20)
[2016-12-19] MEDS: PRIMIDONE 50 MG TAB PO SCH ×2 (09:20→19:44)
[2016-12-19] MEDS: NYSTATIN CREAM 15 GM TOP SCH ×2 (09:21→19:45)
[2016-12-19] MEDS: SANTYL OINT 30GM TOP SCH (09:21)
[2016-12-19] MEDS: WARFARIN SOD 5 MG TAB PO SCH (17:23)
[2016-12-20] MEDS: IPRATROPIUM 0.5MG/ALBUTEROL 2.5MG INH SOL UD 3ML (DUONEB)(J7620) NEB SCH ×4 (02:00→19:46)
[2016-12-20 06:00] VITALS: BP 136/79
[2016-12-20] MEDS: PANTOPRAZOLE 40MG TAB (PROTONIX) PO SCH (09:13)
[2016-12-20] MEDS: PRIMIDONE 50 MG TAB PO SCH ×2 (09:13→20:20)
[2016-12-20] MEDS: ASPIRIN 81 MG CHEW TABLET PO SCH (09:13)
[2016-12-20] MEDS: NYSTATIN CREAM 15 GM TOP SCH ×2 (09:14→20:20)
[2016-12-20] MEDS: SANTYL OINT 30GM TOP SCH (09:14)
[2016-12-20] MEDS: WARFARIN SOD 5 MG TAB PO SCH (17:23)
[2016-12-21] MEDS: IPRATROPIUM 0.5MG/ALBUTEROL 2.5MG INH SOL UD 3ML (DUONEB)(J7620) NEB SCH ×4 (02:00→19:30)
[2016-12-21 06:00] VITALS: BP 127/70
[2016-12-21] MEDS: SANTYL OINT 30GM TOP SCH (09:00)
[2016-12-21] MEDS: ASPIRIN 81 MG CHEW TABLET PO SCH (09:47)
[2016-12-21] MEDS: PRIMIDONE 50 MG TAB PO SCH ×2 (09:47→20:22)
[2016-12-21] MEDS: PANTOPRAZOLE 40MG TAB (PROTONIX) PO SCH (09:47)
[2016-12-21] MEDS: NYSTATIN CREAM 15 GM TOP SCH ×2 (09:48→20:23)
[2016-12-21] MEDS: WARFARIN SOD 5 MG TAB PO SCH (17:15)
[2016-12-22] MEDS: IPRATROPIUM 0.5MG/ALBUTEROL 2.5MG INH SOL UD 3ML (DUONEB)(J7620) NEB SCH ×4 (02:00→19:30)
[2016-12-22 06:00] VITALS: BP 122/68
[2016-12-22 06:17] LABS: INR 2.25
[2016-12-22] MEDS: ASPIRIN 81 MG CHEW TABLET PO SCH (09:52)
[2016-12-22] MEDS: PRIMIDONE 50 MG TAB PO SCH ×2 (09:52→20:33)
[2016-12-22] MEDS: NYSTATIN CREAM 15 GM TOP SCH ×2 (09:52→20:34)
[2016-12-22] MEDS: PANTOPRAZOLE 40MG TAB (PROTONIX) PO SCH (09:52)
[2016-12-22] MEDS: SANTYL OINT 30GM TOP SCH (09:53)
[2016-12-22] MEDS: WARFARIN SOD 5 MG TAB PO SCH (16:52)
[2016-12-22] MEDS: ACETAMINOPHEN TAB 650MG DOSE (2X325MG) PO PRN (20:34)
[2016-12-23] MEDS: IPRATROPIUM 0.5MG/ALBUTEROL 2.5MG INH SOL UD 3ML (DUONEB)(J7620) NEB SCH ×4 (01:42→19:32)
[2016-12-23 06:00] VITALS: BP 114/57
[2016-12-23] MEDS: ASPIRIN 81 MG CHEW TABLET PO SCH (08:50)
[2016-12-23] MEDS: PANTOPRAZOLE 40MG TAB (PROTONIX) PO SCH (08:50)
[2016-12-23] MEDS: PRIMIDONE 50 MG TAB PO SCH ×2 (08:50→20:03)
[2016-12-23] MEDS: NYSTATIN CREAM 15 GM TOP SCH ×2 (08:51→20:03)
[2016-12-23] MEDS: SANTYL OINT 30GM TOP SCH (08:51)
--- NOTE | 2016-12-23 11:18 | IPNPDOC ---
Subjective Date Seen The patient was seen on 12/23/16. Subjective Chief Complaint/HPI Pt without new concerns. GF at bedside, also without new concerns. Possible transfer to [facility] today. General: Denies: Fatigue Constitutional: Denies: Chills, Fever ENT: Denies: Head Aches Pulmonary: Denies: Cough, Dyspnea Cardiovascular: Denies: Chest Pain, Palpitations Gastrointestinal: Denies: Diarrhea, Nausea, Vomiting Psych: Reports: Mood Normal Objective Physical Examination General Exam: Positive: Alert, No Acute Distress ENT Exam: Positive: Atraumatic Neck Exam: Positive: Supple, Negative: JVD Chest Exam: Positive: Clear to auscultation, Diminished (in bases; some upper airway noises), Negative: Rales, Rhonchi, Wheezing Heart Exam: Positive: Rate Normal, Regular Rhythm Abdomen Exam: Positive: Normal bowel sounds, Soft, Negative: Tenderness Extremity Exam: Positive: Edema (trace ankle edema) Neuro Exam: Negative: Cranial Nerves 3-12 NL (tongue deviates left, right facial droop, gaze palsy), Normal Speech (Dysarthric speech), Strength at 5/5 X4 ext (paralysis of left arm and leg; right facial droop) Psych Exam: Positive: Mental status NL, Mood NL Assessment /Plan Problems (1) Hypoxia Status: Acute Problem Text: 12/23- Resp status stable since O2 started, no S/S infection. CXR 12/18 neg. 12/18 Patient has had a new oxygen requirement and has been on 2L O2 via NC since yesterday - will recheck CXR. (2) CVA (cerebral vascular accident) Status: Acute Problem Specific Plan: Consult Specialist, Monitor Clinically, Repeat Labs Problem Text: 12/22 INR 2.25, recheck on 12/26. Possible rehab bed offer today. 12/18/16 - PT/INR remains therapeutic. Continue PT. 12/17/16 - Patient therapeutic on warfarin yesterday; will recheck PT/INR today given hematuria. Continue PT. 12/15 - Pt anticoauglated with warfarin. INR 2.3. Lovenox was d/c'ed yesterday. PT working with pt. 12/14 - Pt is being anticoagulated with warfarin and lovenox until warfarin is therapeutic. INR trending up and is 1.94 today. Physical therapy working with pt and assessing rehab options, and they feel pt will be a placement. 12/13 - Pt is being anticoagulated with warfarin and lovenox until warfarin is therapeutic. INR trending up and is 1.87 today. Physical therapy working with pt and assessing rehab options, and they feel pt will be a placement. 12/12 - Pt is being anticoagulated with warfarin and lovenox until warfarin is therapeutic. INR trending up and is 1.6 today. Physical therapy working with pt and assessing rehab options. 12/08 -- spoke with Dr. Awad, who states that anticoagulation is a risk/ benefit judgment; he would be OK with initiation of anticoagulation tomorrow. He recommends continuing aspirin and beginning warfarin (which allows more time before patient is therapeutic) or stopping aspirin and beginning Lovenox and warfarin. 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 Neuro and neurosurgery were consulted at admission. Awaiting day 3 status post stroke to initiate Eliquis, to await confirmation that stroke does not become hemorrhagic. EEG done 12/06/2016. Follow-up CT 12/06/2016 shows no hemorrhagic conversion as of yet. IVC filter placed 12/06/[address] Solorio. Echo shows no significant valvular disease, slightly elevated central venous pressure, normal LV size and systolic function. - Follow-up EEG results - ALON with bubble; per neuro - hypercoag workup pending - repeat CT w/o to eval for hemorrhagic conversion 12/07/16, 12/08/2016, 2016 per neuro - these are been ordered -Pureed Diet with pudding thick (3) Fever Status: Acute Problem Text: 12/18 - No fevers in last 24 hours; will continue to monitor. 12/17 - Patient has had intermittent fevers for the past 5 days. No obvious source of infection - urine culture from 12/14 was negative; CXR done 12/14 was also negative. Patient becomes mildly tachycardic when febrile which is expected. BP has been stable WBCs are actually a bit lower today as compared to yesterday. I suspect central fever due to CVA, however as he has not had any recent blood cultures checked will recheck today. (4) Hematuria Status: Acute Problem Text: 12/18 - Urine appears more clear today; H/H down today but consistent with previous studies. Will continue to monitor. 12/17 - Noted in deluca bag this morning; no clots seen. H/H improved from yesterday. Will cautiously continue warfarin for now and monitor H/H and PT/ INR daily. (5) Skin tear Status: Acute Problem Specific Plan: Monitor Clinically, Repeat Labs Problem Text: 12/18 - Continue wound care per PT recommendations 12/17 - Pt with skin breakdown to right posterior thigh, along with some skin breakdown on buttocks. Culture of right thigh positive for E. Coli but it does not appear acutely infected. Will consult wound care team. Nystatin cream started to buttocks for possible candidiasis based on exam. (6) Sepsis Status: Acute Problem Specific Plan: Monitor Clinically, Repeat Labs Problem Text: 12/17 - Patient was initially thought to be septic but antibiotics were discontinued on 12/09 with no obvious source of sepsis. I think that sepsis is unlikely as fevers have been intermittent for past 5 days but patient has otherwise been stable and does not appear acutely ill. Recheck blood cultures today. Patient has some skin breakdown but I do not see any signs of cellulitis. 12/15 - Currently afebrile but temp was elevated to 101.8 yesterday evening. WBC stable at 11.2. Urine cx pending. CXR yesterday negative. Pt with skin tear right posterior thigh. Will cx. Will consult wound care team. 12/14 - Temp 100.6 this am and Tmax was 101.6 yesterday afternoon. WBC 11.2 ( yesterday was 11.4). Vanco and Zosyn were d/c'ed on 12/09/16. Has had some wheezing. Will order CXR. 12/13 - Tmax 100.6 this am. Currently afebrile. WBC up slightly to 11.4. Vanco and Zosyn were d/c'ed on 12/09/16. 12/12 - Temp was up last night to 101.3. Currently afebrile. Vanco and Zosyn were d/c'ed on 12/09/16. 12/05 - WBC 16.9 (19 at admission). On Zosyn. (7) Acute renal failure Status: Acute Problem Specific Plan: Monitor Clinically, Repeat Labs Problem Text: 12/18 - Cr improved today to 1.88 without intervention. 12/17 - Cr has increased today to 2.35 - this occurred earlier in the week as well and patient was encouraged to increase PO hydration and Cr resolved without IVF intervention - I again encouraged PO hydration and will recheck BMP tomorrow. 12/15 - Creatinine is lower at 1.49. 12/14 - Creatinine is lower at 1.62. 12/13 - creatinine trending up today at 2.36. Continue to monitor. 12/12 - creatinine slightly up today at 1.78. Continue to monitor. 12/08 -- renal function progressively improving 12/05 - Creatinine 3.77 (4.99 yesterday). Getting IVF. (8) Asthma Status: Chronic Problem Specific Plan: Monitor Clinically Problem Text: Continue scheduled nebs. Lungs are clear today but patient is limited in ability to take deep breaths due to immobility from recent stroke. (9) HTN (hypertension) Status: Chronic Problem Specific Plan: Monitor Clinically Problem Text: OutPt HCTZ held. (10) Anxiety Status: Chronic Problem Specific Plan: Monitor Clinically Problem Text: Outpt Duloxetine and lorazepam currently held. (11) Hypernatremia Status: Resolved Problem Text: 12/15 - Na 144 12/14 - Na 143 12/13 - Na 148. 12/12 - Na 142. 12/08 -- worse this a.m., increased D5 1/2 NS rate and rechecked this afternoon, with improvement. If it does not continue to improve tomorrow, likely consider D5W. Plan/VTE VTE Prophylaxis Ordered?: Yes Plan/Urinary Catheter Reason for insertion/continuin: Critical Pt monitoring VS, I&O, 24H, Fishbone Vital Signs/I&O Vital Signs Date Time Temp Pulse Resp B/P Pulse Ox O2 Delivery O2 Flow Rate FiO2 12/23/16 09:15 Nasal Cannula 2.0 12/23/16 06:00 96.4 73 19 114/57 94 I&O- Last 24 Hours up to 6 AM 12/23/16 06:00 Intake Total 1920 ml Balance 1920 ml Laboratory Data Microbiology Microbiology 12/17/16 Blood Culture - Final, Complete NO GROWTH AFTER 5 DAYS 12/17/16 Blood Culture - Final, Complete NO GROWTH AFTER 5 DAYS 12/14/16 Urine Culture - Final, Complete 12/15/16 Wound Culture - Final, Complete Escherichia Coli Pseudomonas Aeruginosa Staphylococcus Sp Coag Neg ESTEPHANIA CLARK PA-C Dec 23, 2016 11:17
[2016-12-23] MEDS ORDERED: COUM1TAB17 PO (12:50)
[2016-12-23] MEDS ORDERED: SANT250O8 TOP (12:50)
[2016-12-23] MEDS ORDERED: PEG1POW PO (12:50)
[2016-12-23] MEDS ORDERED: NYST10CR TOP (12:50)
[2016-12-23] MEDS ORDERED: PANT40TA2 PO (12:50)
[2016-12-23] MEDS: WARFARIN SOD 5 MG TAB PO SCH (17:02)
--- NOTE | 2016-12-23 18:25 | DSES ---
DATE OF ADMISSION: 12/04/2016 DATE OF DISCHARGE: 12/23/2016 PRIMARY CARE PROVIDER: Woo Calderon MD HISTORY: This is a 61-year-old male patient who presented to [facility] after being found at home. He had last been in his known normal state of health about 3 days prior to his presentation. He was found by his neighbor the afternoon of his presentation, who had come over to check on him for a welfare check as the patient had not been heard from in a couple of days. The patient was found sitting up, he was able to answer commands, but unable to move his left side. He had an uneven smile, dried vomit around his mouth and clothes. Patient was unable to provide any details in regards to the event in question. He was only able to answer simple questions at the time of admission to the hospital. Patient was evaluated in the emergency room and he was found to be encephalopathic secondary to a subacute cerebrovascular accident with midline shift likely felt to be ischemic in etiology. CT of the head did, in fact, reveal a subacute infarct without evidence of midline shift. MRI/MRA, echo, and ultrasound were ordered on admission. He was admitted to the intensive care unit and started on dexamethasone 4 mg every 6 hours and neurologic checks hourly. Neurology was consulted. He was also felt to be likely septic secondary to aspiration pneumonia with an elevated white blood cell count and lactic acidosis. He was in acute renal failure at time of admission with an elevated creatinine of 4.99 with a baseline between 1.4 and 1.7. He was started on IV fluids for hydration and because he was in rhabdomyolysis, likely secondary to prolonged immobility with an elevated CK-MB of 2900. During his hospitalization, neurology was consulted. Dr. Awad saw the patient in consultation. The initial thought was to start the patient on anticoagulation, which in the setting of a large middle cerebral artery (MCA) stroke posed a risk for hemorrhagic conversion, which ultimately has a poor prognosis. Patient was without pulmonary embolus and therefore, the recommendation was made to place an inferior vena cava (IVC) filter. Serial CT scans of the head were followed for the subsequent 3 days. When there was no hemorrhagic conversion, the patient was ultimately started on anticoagulation. He did undergo IVC filter placement with Dr. Solorio. MRI of the brain without contrast suggested, in fact, an occlusion of the right middle cerebral artery at its origin. On 12/05/2016, the patient was found to have an extensive deep venous thrombosis (DVT) of the left common femoral, superficial femoral, and popliteal veins, prompting the placement of an IVC filter on 12/06/2016. Update to his hospitalization following that summary, includes that the patient developed some hypoxemia as well as fevers, both independent of each other, since the time that he was placed as [facility] level of care. He was evaluated with chest xray, blood cultures, urinalysis, all which were benign in nature, it was felt as though the fevers are likely central related. He subsequently did develop some hypoxia, which was treated with the initiation of the oxygen via nasal cannula at 2 liters a minute. He, again, underwent chest xray which was also benign. He has no other respiratory symptoms. He has remained adequately anticoagulated. His last temperature was 100.6 on 12/17/2016. DISCHARGE DIAGNOSES: Remain unchanged. DISCHARGE MEDICATIONS: Are also unchanged. DISPOSITION: Patient is being discharged to [facility] in [place]. The patient and his girlfriend have agreed that this is likely the best solution for him at this time. He will followup with the primary care provider within the facility. If he is discharged from the facility back into the home setting, we would be happy to see him back through [facility] and his primary care provider is Dr. Woo Calderon.
[2016-12-24] MEDS: IPRATROPIUM 0.5MG/ALBUTEROL 2.5MG INH SOL UD 3ML (DUONEB)(J7620) NEB SCH ×4 (01:32→19:26)
[2016-12-24 06:00] VITALS: BP 137/76
[2016-12-24] MEDS: PANTOPRAZOLE 40MG TAB (PROTONIX) PO SCH (09:37)
[2016-12-24] MEDS: NYSTATIN CREAM 15 GM TOP SCH ×2 (09:37→20:14)
[2016-12-24] MEDS: PRIMIDONE 50 MG TAB PO SCH ×2 (09:37→20:14)
[2016-12-24] MEDS: ASPIRIN 81 MG CHEW TABLET PO SCH (09:37)
[2016-12-24] MEDS: SANTYL OINT 30GM TOP SCH (09:37)
[2016-12-24] MEDS: WARFARIN SOD 5 MG TAB PO SCH (16:37)
[2016-12-24] MEDS: ACETAMINOPHEN TAB 650MG DOSE (2X325MG) PO PRN (22:00)
[2016-12-25] MEDS: IPRATROPIUM 0.5MG/ALBUTEROL 2.5MG INH SOL UD 3ML (DUONEB)(J7620) NEB SCH ×4 (01:06→19:48)
[2016-12-25 06:00] VITALS: BP 124/65
[2016-12-25] MEDS: ASPIRIN 81 MG CHEW TABLET PO SCH (09:04)
[2016-12-25] MEDS: PRIMIDONE 50 MG TAB PO SCH ×2 (09:04→20:00)
[2016-12-25] MEDS: PANTOPRAZOLE 40MG TAB (PROTONIX) PO SCH (09:04)
[2016-12-25] MEDS: NYSTATIN CREAM 15 GM TOP SCH ×2 (09:05→20:00)
[2016-12-25] MEDS: SANTYL OINT 30GM TOP SCH (11:49)
[2016-12-25] MEDS: WARFARIN SOD 5 MG TAB PO SCH (17:13)
[2016-12-25] MEDS: ACETAMINOPHEN TAB 650MG DOSE (2X325MG) PO PRN (20:00)
[2016-12-26] MEDS: IPRATROPIUM 0.5MG/ALBUTEROL 2.5MG INH SOL UD 3ML (DUONEB)(J7620) NEB SCH ×4 (01:51→19:20)
[2016-12-26 06:00] VITALS: BP 136/86
[2016-12-26] MEDS: ASPIRIN 81 MG CHEW TABLET PO SCH (10:17)
[2016-12-26] MEDS: PRIMIDONE 50 MG TAB PO SCH ×2 (10:17→20:06)
[2016-12-26] MEDS: PANTOPRAZOLE 40MG TAB (PROTONIX) PO SCH (10:17)
[2016-12-26] MEDS: NYSTATIN CREAM 15 GM TOP SCH ×2 (10:18→20:07)
[2016-12-26] MEDS: SANTYL OINT 30GM TOP SCH (10:24)
[2016-12-26 11:24] LABS: INR 2.35
[2016-12-26] MEDS: WARFARIN SOD 5 MG TAB PO SCH (16:44)
[2016-12-27] MEDS: IPRATROPIUM 0.5MG/ALBUTEROL 2.5MG INH SOL UD 3ML (DUONEB)(J7620) NEB SCH ×2 (01:20→07:53)
[2016-12-27 06:00] VITALS: BP 129/83
--- NOTE | 2016-12-27 08:02 | DSES ---
DATE OF ADMISSION: 12/04/2016 DATE OF DISCHARGE: ADDENDUM: 12/27/2016 Since the patient's last discharge summary note on 12/23/2016, the patient has had an uneventful hospitalization and has remained afebrile. Vital signs have remained stable. He has tolerated oral intake. Bowel movements and incontinent voids have been documented accordingly. Diet on discharge will be mechanical soft, high flaco protein, ice cream and mashed potato for calorie intake. Medications are unchanged as per discharge orders.
[2016-12-27] MEDS: PANTOPRAZOLE 40MG TAB (PROTONIX) PO SCH (09:53)
[2016-12-27] MEDS: NYSTATIN CREAM 15 GM TOP SCH (09:53)
[2016-12-27] MEDS: SANTYL OINT 30GM TOP SCH (09:53)
[2016-12-27] MEDS: ASPIRIN 81 MG CHEW TABLET PO SCH (09:53)
[2016-12-27] MEDS: PRIMIDONE 50 MG TAB PO SCH (09:53)
== END 2016-12-27 12:17 | DRG 45 ==
LOC: EDBD 19:04 → M ED 19:57 → M ED INP 21:32 → M ICU 23:58 → M PCU 12-10 23:40 → M MSPAV 12-13 17:03
PROVIDERS: ADMIT Internal Medicine; ATTEND Family Medicine
PROC: 06H03DZ Insertion of Intraluminal Device into Inferior Vena Cava, Percutaneous Approach (ICD-10-PCS; principal; 2016-12-06)
DX: I63.9 Cerebral infarction, unspecified (principal); J69.0 Pneumonitis due to inhalation of food and vomit; G93.40 Encephalopathy, unspecified; A41.9 Sepsis, unspecified organism; N17.9 Acute kidney failure, unspecified; E87.0 Hyperosmolality and hypernatremia; N18.3 Chronic kidney disease, stage 3 (moderate); I82.412 Acute embolism and thrombosis of left femoral vein; I82.432 Acute embolism and thrombosis of left popliteal vein; M62.82 Rhabdomyolysis; G47.33 Obstructive sleep apnea (adult) (pediatric); J45.909 Unspecified asthma, uncomplicated; I10 Essential (primary) hypertension; F41.9 Anxiety disorder, unspecified; Z79.82 Long term (current) use of aspirin; Z79.899 Other long term (current) drug therapy

== ENCOUNTER → 2017-11-08 | Outpatient (CLI) | payer OTHER | LOC: M RAD 09:04 | DX: I65.23 Occlusion and stenosis of bilateral carotid arteries (principal) | CPT/HCPCS: 93880 ==